=== PATIENT | male | born 1970 | race Caucasian/White ===

== ENCOUNTER 2025-08-21 15:09 | Inpatient (IN) | payer BC, SELFPAY ==
[2025-08-21] VITALS (14 sets, daily range): BP systolic 78–148; BP diastolic 45–83; PULSE 70–98; RESP 14–19; TEMP 36.6–36.9; O2SAT 96–100; BMI 37.1; BMI 38.2
[2025-08-21 16:05] LABS: Hematocrit 40.5 % (40-54); Hemoglobin 15.1 g/dL (13.0-16.5); Immature Granulocytes Count 0.060 X10^3/uL (0.0-0.0); Mean Corp Hgb Conc 37.3 g/dL (32-36); Mean Corpuscular Volume 91.6 fL (80-94); Mean Platelet Vol. 8.6 fl (6.2-12.0); NRBC Flagged by Analyzer 0 % (0-5); Platelet Count 226 K/mm3 (150-450); RBC Distribution Width CV 12.0 % (11.6-14.6); RBC Distribution Width SD 39.9 fl (35.1-43.9); Red Blood Count 4.42 M/mm3 (4.6-6.2); White Blood Count 9.5 K/mm3 (4.4-11.0)
[2025-08-21 16:31] LABS: Lipase 62 U/L (13-75)
[2025-08-21 16:42] LABS: AST(SGOT) 113 U/L (<=37); Alanine Aminotransfer ALT/SGPT 143 U/L (<=46); Albumin, Serum 4.7 g/dL (3.5-5.0); Alkaline Phosphatase 68 U/L (40-129); Anion Gap 16 (5-15); BUN 22 mg/dL (4-19); BUN/Creat Ratio 9.0 RATIO (10-20); Calcium,Total 9.6 mg/dL (7.6-11.0); Carbon Dioxide 22.2 mmol/L (21.0-32.0); Chloride 81 mmol/L (98-108); Globulin 3.2 g/dL (2.2-4.2); Glucose 121 mg/dL (70-99); Potassium 4.0 mmol/L (3.3-5.1)
--- NOTE | 2025-08-21 16:50 | CT_ITS ---
PROCEDURE: ABDOMEN/PELVIS WITHOUT CONT 08/21/2025 REASON FOR EXAM: COLITIS MAYA TECHNIQUE: Procedure Code: CTABDPEL Modality: CT Procedure: ABDOMEN/PELVIS WITHOUT CONT Noncontrast technique limits evaluation of the abdominal and pelvic viscera. Coronal and Sagittal reconstruction series were provided. One or more dose reduction techniques were used (e.g., Automated exposure control, adjustment of the mA and/or kV according to patient size, use of iterative reconstruction technique). RADIATION DOSE SUMMARY: CTDlvol: 20 mGy DLP: 1189 mGycm FINDINGS: The lung bases are clear. The noncontrast images of the liver, spleen, pancreas and kidneys are unremarkable. No free-fluid. No free air. No bowel obstruction. There is no colonic wall thickening. There is no small bowel distention. There is no abdominal aneurysm or retroperitoneal adenopathy. No evidence of colitis by CT CT/Abdomen/Pelvis without Cont IMPRESSION: No acute abnormality Reading [facility]
--- NOTE | 2025-08-21 16:50 | EKG12_ITS ---
Test Reason : abn labs Blood Pressure : */* mmHG Vent. Rate : 69 BPM Atrial Rate : 69 BPM P-R Int : 208 ms QRS Dur : 92 ms QT Int : 432 ms P-R-T Axes : -11 -42 12 degrees QTcB Int : 462 ms Normal sinus rhythm Left axis deviation Moderate voltage criteria for LVH, may be normal variant ( R in aVL , [place] product ) Abnormal ECG Confirmed by JING CERVANTES, DIMPLE ([id number]), photo editor KATE GARRETT ([id number]) on 08/22/2025 1:05:20 PM Referred By: Confirmed By: DIMPLE CH MD
--- NOTE | 2025-08-21 16:52 | EX.ED.DYSGE1 ---
HPI History of Present Illness Chief Complaint: General Illness Informant: patient and spouse/S.O. Narrative Narrative: 55-year-old male presenting to the emergency room with diarrhea and vomiting. Patient states that last week he traveled to [place] for a [place]. He started to return home on Friday arriving back in town late Friday night. States he developed a lot of diarrhea and vomiting along the way. He notes a generalized upper abdominal discomfort. He has not been able to eat or drink much. He notes decreased urination now urinating small amounts 4 times a day. He has not had any fever. He notes a headache as well as some mild rhinorrhea and a slight cough that is nonproductive. He states that no one else on this trip is sick. This morning he began to ask his some bizarre confused questions and she took him to urgent care and they advised him to come here. He notes a history of hypertension does take HTCZ as well as lisinopril. He notes his last hemoglobin A1c was 5.1. notes that at night he seems very restless and he has had some abdominal wall spasms. Patient notes decreased appetite. He has been trying to drink fluids but is been difficult. He denies any history of pancreatitis. He has had 2 colonoscopies which he states have been negative. [facility] Medical History Hypercholesterolemia Hypertension Home Medications ?Medication ?Instructions ?Recorded ?Last Taken ?Type atorvastatin 20 mg tablet (Lipitor) 20 mg PO DAILY cholesterol 08/21/25 08/21/25 History colestipol 1 gram tablet (Colestid) 1 g PO DAILY cholesterol 08/21/25 08/21/25 History fenofibrate 54 mg tablet 54 mg PO DAILY cholesterol 08/21/25 08/21/25 History hydrochlorothiazide 25 mg tablet 25 mg PO DAILY BP 08/21/25 08/21/25 History lisinopril 40 mg tablet 40 mg PO DAILY BP 08/21/25 08/21/25 History pantoprazole 40 mg tablet,delayed 40 mg PO DAILY reflux 08/21/25 08/21/25 History release Allergy/AdvReac Type Severity Reaction Status Date / Time grass pollen Allergy Mild Itching Verified 08/21/25 21:49 Surgical History Hx of cholecystectomy Social History Smoking Status: Never smoker ROS ROS ED Constitutional Constitutional ED: Reports sweats; Denies chills, fever(s) or weight loss Eyes Eyes: Denies change in vision or diplopia ENT ENT ED: Reports rhinorrhea; Denies ear pain or sore throat Cardiovascular Cardiovascular: Denies chest pain, orthopnea, palpitations or racing heartbeat Respiratory/Chest Respiratory/Chest: Reports cough; Denies dyspnea or orthopnea Gastrointestinal Gastrointestinal: Reports abdominal pain, diarrhea, nausea, vomiting and other Details: Decreased appetite Genitourinary Genitourinary ED: Reports other Details: Decreased urination ; Denies dysuria, hematuria or urinary frequency Musculoskeletal Musculoskeletal: Denies arthralgias, back pain or myalgias Integumentary Denies abscess or rash Neurologic Neurologic: Reports headache(s) and other Details: Confusion ; Denies paresthesias or weakness Psychiatric Psychiatric: Denies anxiety, depression, suicidal ideation or suicidal thoughts Endocrine Endocrinology: Denies polydipsia, polyphagia or polyuria Allergic/Immunologic Allergic/Immunologic ED: Denies mouth swelling, tongue swelling or urticaria EXAM Physical Exam Const Vital Signs: 08/21/25 15:11 08/21/25 15:14 08/21/25 17:13 Temperature 98.4 F 98.4 F 98.4 F Temperature Source Temporal Oral Oral Pulse Rate 98 98 70 Respiratory Rate 18 18 19 H Respiratory Effort Respiratory Pattern Blood Pressure 135/83 H 135/83 H 148/71 H Blood Pressure Mean 100 100 96 Pulse Ox 97 97 96 Oxygen Delivery Method Room Air Room Air Room Air 08/21/25 17:13 08/21/25 18:00 08/21/25 19:00 Temperature 98.4 F Temperature Source Oral Pulse Rate 72 83 Respiratory Rate 18 18 Respiratory Effort Normal Respiratory Pattern Normal Blood Pressure 142/75 H 143/76 H Blood Pressure Mean 97 98 Pulse Ox 97 97 Oxygen Delivery Method Room Air Room Air Positive well nourished and well developed General Appearance ED: well developed; Negative for NAD HEENT Reports normocephalic, head/scalp atraumatic and dry mucous membranes Mouth ED: Yes dry mucous membranes Mouth: dry mucous membranes Eyes PERRL and EOMs intact bilaterally Neck no lymphadenopathy, supple and no JVD Resp normal respiratory effort and clear to auscultation bilaterally Cardio regular rate, regular rhythm and no murmurs GI Inspection: Negative for abdominal distention Auscultation: hypoactive bowel sounds Palpation: soft and tender other (Mild diffuse tenderness); Negative for guarding or rebound tenderness present Back/Spine no CVA tenderness and normal ROM Extremity normal to inspection General Extremety ED: Negative for edema General Extremity: Negative for edema Neuro oriented x3 and CN's II-XII intact bilaterally Sensorium / Orientation: alert Motor Exam: strength 5/5 throughout Psych mental status grossly normal Mood & Affect: Negative for depressed or tearful Skin no rashes or lesions noted and no wounds MDM MDM MDM Narrative Medical decision making narrative: Differential diagnosis includes dehydration MAYA electrolyte abnormalities viral gastroenteritis bacterial gastroenteritis uremia pancreatitis biliary colic White count is 9.5 hemoglobin 15.1 platelet count of 226. Sodium is 119 creatinine 2.49 with a BUN of 22 elevation of his transaminases AST 113 ALT 143 magnesium 2.3 total bili 1.1 alk phos [address] of the abdomen pelvis was obtained read by radiology reviewed by myself. Please see radiologist read for full details. Patient received initially a 500 cc bolus of normal saline. I rechecked his sodium level of 121 and administered another 500 cc saline bolus. I think the patient would benefit from being admitted to the hospital for further correction of his sodium and as well as his MAYA. History & Record Review Discussion w/independent historian: Patient and Family Lab Data Attestation: I reviewed the patient's lab results. Labs: Laboratory Results - last 24 hr 08/21/25 08/21/25 15:57 17:55 WBC 9.5 RBC 4.42 L Hgb 15.1 Hct 40.5 MCV 91.6 MCH 34.2 H MCHC 37.3 H RDW Std Deviation 39.9 RDW Coeff of Jaclyn 12.0 Plt Count 226 MPV 8.6 Immature Gran % (Auto) 0.600 Neut % (Auto) 73.7 H Lymph % (Auto) 14.3 L [place] % (Auto) 10.6 H Eos % (Auto) 0.4 Baso % (Auto) 0.4 Absolute Neuts (auto) 7.0 Absolute Lymphs (auto) 1.35 Nucleated RBC % 0 Sodium 119 L* 121 L Potassium 4.0 3.9 Chloride 81 L 83 L Carbon Dioxide 22.2 24.1 Anion Gap 16 H 14 BUN 22 H 22 H Creatinine 2.49 H 2.37 H Estim Creat Clear Calc 44.70 L Est GFR (MDRD) Non-Af 30 L 31 L BUN/Creatinine Ratio 9.0 L 9.2 L Glucose 121 H 109 H Calcium 9.6 9.2 Magnesium 2.3 H Total Bilirubin 1.11 AST 113 H ALT 143 H Alkaline Phosphatase 68 Total Protein 7.9 Albumin 4.7 Globulin 3.2 Albumin/Globulin Ratio 1.5 Lipase 62 Radiography Diagnostic Testing: Clinical Impression(s) from Imaging Studies Abdomen/Pelvis CT 08/21/25 16:50 IMPRESSION: No acute abnormality Reading Location: [facility] EKG Initial EKG: Attestation: I personally reviewed and interpreted this EKG as follows: Comments: Normal sinus rhythm ventricular to 69 bpm Management Discussion w/another healthcare provider: Hospitalist Discharge Plan Dx/Rx/DC Orders Clinical Impression: Acute hyponatremia, MAYA (acute kidney injury), Acute dehydration, Gastroenteritis, AMS (altered mental status) Disposition Disposition: [facility] Discharge Date/Time: 08/21/25 20:56
[2025-08-21] MEDS: 0.9% Normal Saline (500mL Bag) 500 ML 999 ML IV ×2 (16:55→18:27)
--- OUTSIDE RECORDS SUMMARY | 2025-08-21 17:19 | XMS RPT_ITS | CCD ---
Author Organization [facility] Care Team Providers Care Chart Collector Name Role Phone PROVIDER, UNKNOWN Unavailable Unavailable Babatunde Kerr MD Primary Care Provider Babatunde Kerr MD Primary Care Provider [phone] Babatunde Kerr MD Primary Care Provider Valentina Chatman APRN.CNP Unavailable Mary Ann Carlos PA-C Unavailable [phone] BABATUNDE KERR Primary Care Unavailable DORIS GUADALUPE Attending Unavailable BABATUNDE KERR Attending Unavailable BABATUNDE KERR Primary Care Unavailable BABATUNDE KERR Primary Care Unavailable BABATUNDE KERR Referring Unavailable MARY ANN CARLOS Attending Unavailable BABATUNDE KERR Primary Care Unavailable BABATUNDE KERR Primary Care Unavailable BABATUNDE KERR Referring Unavailable Allergies Allergy Classification Reported Allergen(s) Allergy Type Date of Onset Reaction(s) Facility (20 sources) Seasonal allergy; Translations: [SEASONAL ALLERGIES] Propensity to adverse reactions (disorder) 8 Other: See Comments [facility] Other [place] [facility] Medications Current Medications Medication Drug Class(es) Dates Sig (Normalized) Sig (Original) atorvastatin 20 mg oral tablet (20 sources) HMG-CoA Reductase Inhibitor Start: 12-25-2023 End: 12-20-2024 take 1 tablet by mouth once daily at bedtime for hyperlipidemia atorvastatin (LIPITOR) 20 mg tablet Take 1 tablet by mouth daily at bedtime. For cholesterol. 90 tablet 1 12/20/2024 Active Start: 06-26-2023 End: 08-24-2023 take 1 tablet by mouth once daily at bedtime for hyperlipidemia atorvastatin (LIPITOR) 20 mg tablet Indications: Hyponatremia , Hyperkalemia Take 1 tablet by mouth daily at bedtime. For cholesterol. 90 tablet 1 08/25/2023 Active Start: 02-17-2023 take 1 tablet by kiran th once daily at bedtime for hyperlipidemia atorvastatin (LIPITOR) 20 mg tablet Indications: Hyponatremia , Hyperkalemia Take 1 tablet by mouth daily at bedtime. For cholesterol. 90 tablet 1 02/17/2023 Active Start: 09-02-2022 take 1 tablet by kiran th once daily at bedtime for hyperlipidemia atorvastatin (LIPITOR) 20 mg tablet Indications: Hyponatremia , Hyperkalemia Take 1 tablet by mouth daily at bedtime. For cholesterol. 90 tablet 1 09/02/2022 Active Start: 01-23-2022 End: 09-02-2022 take 1 tablet by mouth once daily at bedtime for hyperlipidemia atorvastatin (LIPITOR) 10 mg tablet Indications: Hyponatremia , Hyperkalemia Take 1 tablet by mouth daily at bedtime. For cholesterol. 90 tablet 1 04/26/2022 09/02/2022 Discontinued Comment on above: Take 1 tablet by kiran th daily at bedtime. For cholesterol. colestipol hydrochloride 1000 mg oral tablet (20 sources) Bile Acid Sequestrant Start: End: take 1 tablet by mouth twice daily colestipol (COLESTID) 1 gram tablet Indications: MUNIZ (nonalcoholic steatohepatitis) Take 1 tablet by mouth two times a day. 180 tablet 1 06/29/2024 Active Start: 07-17-2021 End: 05-16-2023 take 1 tablet by mouth twice daily colestipol (COLESTID) 1 gram tablet Take 1 tablet by mouth twice daily. 180 tablet 1 05/16/2023 Active Comment on above: Take 1 tablet by kiran th twice daily. Take 1 tablet by kiran th two times a day. COMPOUNDED PRESCRIPTION (20 sources) Start: 09-09-2018 COMPOUNDED PRESCRIPTION Indications: KATHY (obstructive sleep apnea) CPAP DEVICE AND SUPPLIES: CPAP 7 cmH2O with humidification. 1 Each 09/09/2018 Active Start: 09-09-2018 COMPOUNDED PRE SCRIPTION Indications: KATHY (obstructive sleep apnea) CPAP DEVICE AND SUPPLIES: CPAP 7 cmH2O with humidification. 1 Each 0 09/09/2018 Active Comment on above: CPAP DEVICE AND SUPP LIES: CPAP 7 cmH2O with humidification. fenofibrate 54 mg oral tablet (2 sources) Peroxisome Proliferator Receptor alpha Agonist Start: 01-08-20 take 1 tablet by mouth once daily Fenofibrate (LOFIBRA) 54 mg tablet Take 1 tablet by mouth once daily. 90 tablet 1 01/07/2025 Active lisinopril 40 mg oral tablet (20 sources) Angiotensin Converting Enzyme Inhibitor Start: 12-25-19 End: 12-21-19 take 1 tablet by mouth once daily lisinopril (ZESTRIL) 40 mg tablet Take 1 tablet by mouth once daily. 90 tablet 1 12/20/2024 Active Start: 07-17-2021 End: 04-07-2023 take 1 tablet by mouth once daily lisinopril (ZESTRIL) 40 mg tablet Take 1 tablet by mouth once daily. 90 tablet 3 04/07/2023 Active Comment on above: Take 1 tablet by kiran th once daily. pantoprazole 40 mg delayed release oral tablet (20 sources) Proton Pump Inhibitor Start: End: take 1 tablet by mouth once daily before breakfast pantoprazole DR (PROTONIX) 40 mg tablet Take 1 tablet by mouth daily before breakfast. Take on empty stomach, 1/2 hr before meal. 90 tablet 1 12/20/2024 Active Start: 07-17-2021 End: 08-24-2023 take 1 tablet by mouth once daily pantoprazole DR (PROTONIX) 40 mg tablet Take 1 tablet by mouth once daily. 90 tablet 1 05/16/2023 08/24/2023 Discontinued Comment on above: Take 1 tablet by kiran th once daily. Take 1 tablet by kiran th daily before breakfast. Take on empty stomach, 1/2 hr before meal. sildenafil 100 mg oral tablet (20 sources) Phosphodiesterase 5 Inhibitor Start: 01-02-20 End: 09-22-20 take 1 tablet by mouth once daily sildenafil (VIAGRA) 100 mg tablet Indications: Erectile dysfunction, unspecified erectile dysfunction type Take one tab by mouth daily if needed. 30 tablet 1 09/23/2024 Active Start: 03-22-2019 End: 07-08-2023 take 1 tablet by mouth once daily sildenafil (VIAGRA) 100 mg tablet Take one tab by mouth daily if needed. 30 tablet 1 07/09/2023 Active Comment on above: Take one tab by mout h daily if needed. tropicamide 5 mg/ml ophthalmic solution (2 sources) Anticholinergic Start: 06-09-2024 End: 06-09-2024 tropicamide 0.5 % 1 Drop (MYDRIACYL) Start: 06-09-2024 End: 06-09-2024 1 Drop, BOTH EYES, DIRECT ED, Starting on Fri06/09/24 at 0900, Until Fri06/09/24 at 2058, Administer for dilation vitamin b12 0.5 mg oral tablet (7 sources) Vitamin B12 Start: 06-30-2024 take 1 tablet by mouth once daily cyanocobalamin (B-12 DOTS) 500 mcg tablet Take 1 tablet by mouth once daily. 06/30/2024 Active Problems Active Problems Problem Classification Problem Date Documented Da te Episodic/Chronic Blindness and vision defects (3 sources) Bilateral myopia of eyes; Translations: [Myopia, bilateral] 06-09-2024 Episodic Disorders of lipid metabolism (20 sources) Mixed hyperlipidemia; Translations: [Mixed hyperlipidemia] Onset: 9 02-07-2018 Chronic Esophageal disorders (20 sources) Ulcer of esophagus; Translations: [Ulcer of esophagus without bleeding] Onset: 7 Chronic Essential hypertension (20 sources) Essential (primary) hypertension; Translations: [Essential hypertension] Onset: 9 02-07-2018 Chronic Fluid and electrolyte disorders (10 sources) Hyponatremia; Translations: [Hypo-osmolality and hyponatremia] Episodic Hepatitis (20 sources) Nonalcoholic steatohepatitis; Translations: [Nonalcoholic steatohepatitis (MUNIZ)] Onset: 3 06-25-2023 Chronic Malaise and fatigue (1 source) Other fatigue; Translations: [Other fatigue] Onset: 8 Episodic Miscellaneous mental health disorders (20 sources) Psychophysiologic insomnia; Translations: [Psychophysiologic insomnia] Onset: 1 07-17-2021 Chronic Mood disorders (20 sources) Single episode of major depression in full remission; Translations: [Major depressive disorder, single episode, in full remission] Onset: 5 08-29-2018 Chronic Other eye disorders (1 source) Bilateral vitreous floaters; Translations: [Other vitreous opacities, bilateral] 06-09-2024 Chronic Other gastrointestinal disorders (20 sources) Diarrhea; Translations: [Intestinal malabsorption, unspecified] Onset: 9 08-18-2019 Chronic Other gastrointestinal disorders (1 source) Intestinal malabsorption, unspecified; Translations: [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)] Onset: 9 Chronic Other liver diseases (20 sources) Steatosis of liver; Translations: [Fatty (change of) liver, not elsewhere classified] Onset: 9 08-18-2019 Chronic Other liver diseases (1 source) Fatty (change of) liver, not elsewhere classified; Translations: [Fatty liver] Onset: 5 Chronic Other lower respiratory disease (1 source) Snoring; Translations: [Snoring] Onset: 8 Episodic Other lower respiratory disease (1 source) Apnea, not elsewhere classified; Translations: [Apnea, not elsewhere classified] Onset: 8 Episodic Other male genital disorders (20 sources) Male erectile dysfunction, unspecified; Translations: [Impotence of organic origin] Onset: 9 08-18-2019 Chronic Other nutritional; endocrine; and metabolic disorders (20 sources) Obese class II; Translations: [Obesity, unspecified] Onset: 0 09-05-2020 Chronic Other nutritional; endocrine; and metabolic disorders (4 sources) Severe obesity; Translations: [Class 3 severe obesity due to excess calories with serious comorbidity and body mass index (BMI) of 40.0 to 44.9 in adult ([facility])] Onset: 0 12-20-2024 Chronic Other nutritional; endocrine; and metabolic disorders (1 source) Body mass index (BMI) 40.0-44.9, adult; Translations: [Class 3 severe obesity with body mass index (BMI) of 40.0 to 44.9 in adult ([facility])] Onset: 5 Chronic Other skin disorders (1 source) Actinic keratosis; Translations: [AK (actinic keratosis)] Onset: 5 Episodic Residual codes; unclassified (20 sources) Obstructive sleep apnea syndrome; Translations: [Obstructive sleep apnea (adult) (pediatric)] Onset: 8 08-18-2019 Chronic Residual codes; unclassified (1 source) Obstructive sleep apnea (adult) (pediatric); Translations: [KATHY (obstructive sleep apnea)] Onset: 3 Chronic Retinal detachments; defects; vascular occlusion; and retinopathy (1 source) Round hole of retina of right eye; Translations: [Round hole, right eye] 06-09-2024 Episodic Screening and history of mental health and substance abuse codes (1 source) Encounter for screening examination for other mental health and behavioral disorders; Translations: [Encounter for screening examination for other mental health and behavioral disorders] Onset: 5 Episodic Substance-related disorders (1 source) Nicotine dependence; Translations: [Nicotine dependence, chewing tobacco, uncomplicated] 12-20-2024 Chronic Unclassified (1 source) Class 3 severe obesity with body mass index (BMI) of 40.0 to 44.9 in adult (HCC); Translations: [Class 3 severe obesity with body mass index (BMI) of 40.0 to 44.9 in adult (HCC)] Onset: 5 Past or Other Problems Problem Classification Problem Date Documented Da te Episodic/Chronic Diabetes mellitus without complication (20 sources) High hemoglobin A1c level; Translations: [Other abnormal glucose] Onset: 07-17-2021 07-17-2021 Episodic Hemorrhoids (20 sources) Internal hemorrhoids; Translations: [Other hemorrhoids] Onset: 06-10-2007 02-07-2018 Episodic Nutritional deficiencies (20 sources) Serum vitamin B12 low; Translations: [Deficiency of other specified B group vitamins] Onset: 07-17-2021 07-17-2021 Episodic Other aftercare (20 sources) Patient encounter status; Translations: [Other jail (current) drug therapy] Onset: 03-20-2019 07-12-2021 Episodic Other aftercare (1 source) Other keno terminal operator (current) drug therapy; Translations: [Medication management] Onset: 07-12-2021 Episodic Other gastrointestinal disorders (1 source) Diarrhea, unspecified; Translations: [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)] Onset: 08-18-2019 Episodic Other infections; including parasitic (20 sources) Personal history of other infectious and parasitic diseases; Translations: [History of COVID-19] Onset: 07-17-2021 07-17-2021 Episodic Other nutritional; endocrine; and metabolic disorders (20 sources) Weight gain; Translations: [Abnormal weight gain] Onset: 07-17-2021 07-17-2021 Episodic Other nutritional; endocrine; and metabolic disorders (8 sources) Weight increased; Translations: [Abnormal weight gain] Onset: 07-17-2021 07-17-2021 Episodic Other screening for suspected conditions (not mental disorders or infectious disease) (18 sources) Other specified abnormal findings of blood chemistry; Translations: [Other abnormal blood chemistry] Onset: 03-20-2019 08-18-2019 Episodic Results Test Name Value Interpretation Reference Range Facility Basic metabolic 2000 panelon 06-24-2025 Anion gap [Moles/Vol] 16 mmol/L High 8-15 [facility] Comment on above: Order Comment: Speci men Type: BLOOD SPECIMEN Ordering Facility: [facility] Address: [address] [place] [address] Performed By: #### 2 4325-3, , 52836-0, LIPNF #### [facility] CLIA [id number] [address] [place] [address] [place] Calcium [Mass/Vol] 9.7 mg/dL Normal 8.5-10.2 [facility] Comment on above: Order Comment: Speci men Type: BLOOD SPECIMEN Ordering Facility: [facility] Address: [address] [place] [address] Performed By: #### 2 4325-3, , 59265-1, LIPNF #### [facility] CLIA [id number] [address] [place] [address] [place] Chloride [Moles/Vol] 98 mmol/L Normal 98-107 [facility] Comment on above: Order Comment: Speci men Type: BLOOD SPECIMEN Ordering Facility: [facility] Address: [address] [place] [address] Performed By: #### 2 4325-3, , 95036-1, LIPNF #### [facility] CLIA [id number] [address] [place] [id number] [place] CO2 [Moles/Vol] 21 mmol/L Low 22-30 [facility] Comment on above: Order Comment: Speci men Type: BLOOD SPECIMEN Ordering Facility: [facility] Address: [address] [place] [address] Performed By: #### 2 4325-3, , 62929-9, LIPNF #### [facility] CLIA [id number] [address] [place], [place] [id number] [place] Creatinine [Mass/Vol] 1.00 mg/dL Normal 0.73-1.22 [facility] Comment on above: Order Comment: Speci men Type: BLOOD SPECIMEN Ordering Facility: [facility] Address: [address] [place] [address] Performed By: #### 2 4325-3, , 32788-7, LIPNF #### [facility] CLIA [id number] [address] [place] [address] [place] eGFRcr SerPlBld CKD-EPI 2020 88 mL/min/1.73m??? Normal >=60 [facility] Comment on above: Order Comment: Speci men Type: BLOOD SPECIMEN Ordering Facility: [facility] Address: [address] [place] [address] Result Comment: Shelley mated Glomerular Filtration Rate (eGFR) is calculated using the 2020 CKD-EPI creatinine equation. This equation utilizes serum creatinine, sex, and age as parameters. The creatinine assay has traceable calibration to isotope dilution-mass spectrometry. Refer to KDIGO guidelines for clinical interpretation. In patients with unstable renal function, e.g. those with acute kidney injury, the eGFR may not accurately reflect actual GFR. Performed By: #### 2 4325-3, 91586-4, 04730-3, LIPNF #### [facility] CLIA [id number] [address] [place], [place] [id number] [place] Glucose [Mass/Vol] 128 mg/dL High 74-99 [facility] Comment on above: Order Comment: Speci men Type: BLOOD SPECIMEN Ordering Facility: [facility] Address: [address] [place] [address] Result Comment: The [place] Diabetes [employer] (ADA) provides guidance for cutoff values for fasting glucose and random glucose. The ADA defines fasting as no caloric intake for at least 8 hours. Fasting plasma glucose results between 100 to 125 mg/dL indicate increased risk for diabetes (prediabetes). Fasting plasma glucose results greater than or equal to 126 mg/dL meet the criteria for diagnosis of diabetes. In the absence of unequivocal hyperglycemia, results should be confirmed by repeat testing. In a patient with classic symptoms of hyperglycemia or hyperglycemic crisis, random plasma glucose results greater than or equal to 200 mg/dL meet the criteria for diagnosis of diabetes. Reference: Standards of Medical Care in Diabetes 2016, [place] [employer] Association. Diabetes Care. 2016.39(Suppl 1). Performed By: #### 2 4325-3, , 56378-2, LIPNF #### [facility] CLIA [id number] [address] [place] [address] [place] Potassium [Moles/Vol] 4.3 mmol/L Normal 3.7-5.1 [facility] Comment on above: Order Comment: Speci men Type: BLOOD SPECIMEN Ordering Facility: [facility] Address: [address] [place] [address] Performed By: #### 2 4325-3, , 96687-3, LIPNF #### [facility] CLIA [id number] [address] [place] [address] [place] Sodium [Moles/Vol] 135 mmol/L Low 136-144 [facility] Comment on above: Order Comment: Speci men Type: BLOOD SPECIMEN Ordering Facility: [facility] Address: [address] [place] [address] Performed By: #### 2 4325-3, , 43809-1, LIPNF #### [facility] CLIA [id number] [address] [place] [address] [place] Urea nitrogen [Mass/Vol] 10 mg/dL Normal 9-24 [facility] Comment on above: Order Comment: Speci men Type: BLOOD SPECIMEN Ordering Facility: [facility] Address: [address] [place] [address] Performed By: #### 2 4325-3, 91014-4, 28248-2, LIPNF #### [facility] CLIA [id number] [address] [place] [address] [place] CBC W Auto Differential pane l (Bld)on 06-24-2025 Basophils (Bld) [#/Vol] 0.04 10*3/uL Normal <0.11 [facility] Comment on above: Order Comment: Speci men Type: BLOOD SPECIMEN Ordering Facility: [facility] Address: [address] [place] [address] Performed By: #### 5 7021-8 #### [facility] CLIA [id number] [address] [place] [address] [place] Basophils/100 WBC (Bld) 0.8 % Normal [facility] Comment on above: Order Comment: Speci men Type: BLOOD SPECIMEN Ordering Facility: [facility] Address: [address] [place] [address] Performed By: #### 5 7021-8 #### [facility] CLIA [id number] [address] [place] [address] [place] Differential cell count method Nom (Bld) Auto Normal [facility] Comment on above: Order Comment: Speci men Type: BLOOD SPECIMEN Ordering Facility: [facility] Address: [address] [place] [address] Performed By: #### 5 7021-8 #### [facility] CLIA [id number] [address] [place] [address] [place] Eosinophils (Bld) [#/Vol] 0.07 10*3/uL Normal <0.46 [facility] Comment on above: Order Comment: Speci men Type: BLOOD SPECIMEN Ordering Facility: [facility] Address: [address] [place] [address] Performed By: #### 5 7021-8 #### [facility] CLIA [id number] [address] [place] [address] [place] Eosinophils/100 WBC (Bld) 1.4 % Normal [facility] Comment on above: Order Comment: Speci men Type: BLOOD SPECIMEN Ordering Facility: [facility] Address: [address] [place] [address] Performed By: #### 5 7021-8 #### [facility] CLIA [id number] [address] [place] [address] [place] Erythrocyte distribution width (RBC) [Ratio] 12.4 % Normal 11.5-15.0 [facility] Comment on above: Order Comment: Speci men Type: BLOOD SPECIMEN Ordering Facility: [facility] Address: [address] [place] [address] Performed By: #### 5 7021-8 #### [facility] CLIA [id number] [address] [place] [address] [place] Hematocrit (Bld) [Volume fraction] 39.9 % Normal 39.0-51.0 [facility] Comment on above: Order Comment: Speci men Type: BLOOD SPECIMEN Ordering Facility: [facility] Address: [address] [place] [address] Performed By: #### 5 7021-8 #### [facility] CLIA [id number] [address] [place] [address] [place] Hemoglobin (Bld) [Mass/Vol] 14.0 g/dL Normal 13.0-17.0 [facility] Comment on above: Order Comment: Speci men Type: BLOOD SPECIMEN Ordering Facility: [facility] Address: [address] [place] [address] Performed By: #### 5 7021-8 #### [facility] CLIA [id number] [address] [place] [address] [place] Immature granulocytes (Bld) [#/Vol] 10*3/uL Normal <0.10 [facility] Comment on above: Order Comment: Speci men Type: BLOOD SPECIMEN Ordering Facility: [facility] Address: [address] [place] [address] Performed By: #### 5 7021-8 #### [facility] CLIA [id number] [address] [place] [address] [place] Immature granulocytes/100 WBC (Bld) 0.4 % Normal [facility] Comment on above: Order Comment: Speci men Type: BLOOD SPECIMEN Ordering Facility: [facility] Address: [address] [place] [address] Performed By: #### 5 7021-8 #### [facility] CLIA [id number] [address] [place] [address] [place] Lymphocytes (Bld) [#/Vol] 1.21 10*3/uL Normal 1.00-4.00 [facility] Comment on above: Order Comment: Speci men Type: BLOOD SPECIMEN Ordering Facility: [facility] Address: [address] [place] [address] Performed By: #### 5 7021-8 #### [facility] CLIA [id number] [address] [place] [address] [place] Lymphocytes/100 WBC (Bld) 23.5 % Normal [facility] Comment on above: Order Comment: Speci men Type: BLOOD SPECIMEN Ordering Facility: [facility] Address: [address] [place] [address] Performed By: #### 5 7021-8 #### [facility] CLIA [id number] [address] [place] [address] [place] MCH (RBC) [Entitic mass] 34.5 pg High 26.0-34.0 [facility] Comment on above: Order Comment: Speci men Type: BLOOD SPECIMEN Ordering Facility: [facility] Address: [address] [place] [address] Performed By: #### 5 7021-8 #### [facility] CLIA [id number] [address] [place] [address] [place] MCHC (RBC) [Mass/Vol] 35.1 g/dL Normal 30.5-36.0 [facility] Comment on above: Order Comment: Speci men Type: BLOOD SPECIMEN Ordering Facility: [facility] Address: [address] [place] [address] Performed By: #### 5 7021-8 #### [facility] CLIA [id number] [address] [place] [address] [place] MCV (RBC) [Entitic vol] 98.3 fL Normal 80.0-100.0 [facility] Comment on above: Order Comment: Speci men Type: BLOOD SPECIMEN Ordering Facility: [facility] Address: [address] [place] [address] Performed By: #### 5 7021-8 #### [facility] CLIA [id number] [address] [place] [address] [place] Monocytes (Bld) [#/Vol] 0.47 10*3/uL Normal <0.87 [facility] Comment on above: Order Comment: Speci men Type: BLOOD SPECIMEN Ordering Facility: [facility] Address: [address] [place] [address] Performed By: #### 5 7021-8 #### [facility] CLIA [id number] [address] [place] [address] [place] Monocytes/100 WBC (Bld) 9.1 % Normal [facility] Comment on above: Order Comment: Speci men Type: BLOOD SPECIMEN Ordering Facility: [facility] Address: [address] [place] [address] Performed By: #### 5 7021-8 #### [facility] CLIA [id number] [address] [place] [address] [place] Neutrophils (Bld) [#/Vol] 3.34 10*3/uL Normal 1.45-7.50 [facility] Comment on above: Order Comment: Speci men Type: BLOOD SPECIMEN Ordering Facility: [facility] Address: [address] [place] [address] Performed By: #### 5 7021-8 #### [facility] CLIA [id number] [address] [place] [address] [place] Neutrophils/100 WBC (Bld) 64.8 % Normal [facility] Comment on above: Order Comment: Speci men Type: BLOOD SPECIMEN Ordering Facility: [facility] Address: [address] [place] [address] Performed By: #### 5 7021-8 #### [facility] CLIA [id number] [address] [place] [address] [place] Nucleated RBC (Bld) [#/Vol] 10*3/uL Normal <0.01 [facility] Comment on above: Order Comment: Speci men Type: BLOOD SPECIMEN Ordering Facility: [facility] Address: [address] [place] [address] Performed By: #### 5 7021-8 #### [facility] CLIA [id number] [address] [place] [address] [place] Nucleated RBC/100 WBC (Bld) [Ratio] 0.0 /100 WBC Normal [facility] Comment on above: Order Comment: Speci men Type: BLOOD SPECIMEN Ordering Facility: [facility] Address: [address] [place] [address] Performed By: #### 5 7021-8 #### [facility] CLIA [id number] [address] [place] [address] [place] Platelet mean volume (Bld) [Entitic vol] 9.4 fL Normal 9.0-12.7 [facility] Comment on above: Order Comment: Speci men Type: BLOOD SPECIMEN Ordering Facility: [facility] Address: [address] [place] [address] Performed By: #### 5 7021-8 #### [facility] CLIA [id number] [address] [place] [address] [place] Platelets (Bld) [#/Vol] 179 10*3/uL Normal 150-400 [facility] Comment on above: Order Comment: Speci men Type: BLOOD SPECIMEN Ordering Facility: [facility] Address: [address] [place] [address] Performed By: #### 5 7021-8 #### [facility] CLIA [id number] [address] [place] [address] [place] RBC (Bld) [#/Vol] 4.06 10*6/uL Low 4.20-6.00 [facility] Comment on above: Order Comment: Speci men Type: BLOOD SPECIMEN Ordering Facility: [facility] Address: [address] [place] [address] Performed By: #### 5 7021-8 #### [facility] CLIA [id number] [address] [place] [address] [place] WBC (Bld) [#/Vol] 5.15 10*3/uL Normal 3.70-11.00 [facility] Comment on above: Order Comment: Speci men Type: BLOOD SPECIMEN Ordering Facility: [facility] Address: [address] [place] [address] Performed By: #### 5 7021-8 #### [facility] CLIA [id number] [address] [place] [address] [place] CNOVon 06-24-2025 CNOV Office Visit (FAMPWS ) MANA ASH ([id number]) 1970 M Date Time Provider Department 06/24/25 7:00 AM BABATUNDE KERR During your visit today, we recorded the following information about you: Pulse Respiration Blood pressure Weight 82/minute 16/minute 150/74 118.1 kg Height 1.721 m Babatunde Kerr MD 06/24/2025 9:35 AM Signed Chief Complaint Patient presents with: Well Adult HPI Mana Ash is a 55 year old male who presents here today for a Physical and chronic health issues. Patient with Hx of Hyperlipidemia, HTN, KATHY, GERD, elevated A1c, Depression, low B12, ED, Obesity, MUNIZ as well as those reviewed and addressed below in ROS. Zafar reports intermittent hematochezia associated with hemorrhoids. He notes that the bleeding typically occurs with firm stools, presenting as blood on the toilet paper and occasionally on the stool itself. The bleeding is self-limiting, lasting for 3-4 days before resolving, and recurs approximately once a month. He denies hematuria. He also reports the presence of several non-pruritic, non-painful lesions on his scalp, which his has urged him to have evaluated. He has a history of significant sun exposure over the summer, despite wearing a hat, and notes that some of the lesions are scabby. He has previously undergone cryotherapy for a similar lesion on his scalp. Zafar denies recent fevers, frequent headaches, sudden changes in hearing or vision, nasal or throat issues, cervical lymphadenopathy, wheezing, dyspnea, hemoptysis, chest pain, palpitations, lower extremity edema, nausea, emesis, diarrhea, heartburn, polyuria, polydipsia, syncope, seizures, tremors, easy bruising or bleeding, or changes in heat or cold tolerance. He does report increased fatigue and sensitivity to cold, which he attributes to aging. He continues to use a CPAP machine and has not experienced a recurrence of depression. He is currently taking Colestid, which he reports is effective in managing loose stools. However, he experiences gastrointestinal discomfort when taking more than one dose per day. He also uses Viagra as needed, which he reports is effective. He continues to chew tobacco and has no intention of quitting. He plans to receive a flu vaccination this year. Past medical history, appointments, medications, allergies reviewed. 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 Post gall bladder removal Elevated hemoglobin A1c 07/17/2021 Elevated LFTs 08/18/2019 Erectile dysfunction 03/20/2019 Essential hypertension 08/29/2009 GERD without esophagitis 05/08/2007 Hemorrhage of gastrointestinal tract, unspecified History of COVID-19 07/17/202109/2020 Hyperlipidemia, mixed 08/29/2009 Internal hemorrhoids without mention of complication 06/10/2007 Low serum vitamin B12 07/17/2021 Major depressive disorder with single episode, in full remission 08/12/2005 MUNIZ (nonalcoholic steatohepatitis) 06/25/2023 Obesity, Class II, BMI 35-39.9 09/05/2020 KATHY (obstructive sleep apnea) 09/09/2018 Psychophysiological insomnia 07/17/2021 Well adult exam 09/05/2020 Last done: 09/05/2020 Previous Surgical History PAST SURGICAL HISTORY Procedure Laterality Date COLONOSCOPY FLX DX W/COLLJ SPEC WHEN PFRMD 09/27/2019 Colonoscopy ESOPHAGOGASTRODUODENOSCOPY TRANSORAL DIAGNOSTIC 06/10/2007 EGD ESOPHAGOGASTRODUODENOSCOPY TRANSORAL DIAGNOSTIC 09/27/2019 EGD ESOPHAGOGASTRODUODENOSCOPY TRANSORAL DIAGNOSTIC 12/06/2019 EGD LAPAROSCOPY SURG CHOLECYSTECTOMY 02/24/2018 Cholecystectomy, lap Family History FAMILY HISTORY Problem Relation Age of Onset None Mother Coronary Artery Disease Father Diabetes Father Hypertension Father Lipids Father Glaucoma Father other (syndrom) Son Patient Allergies ALLERGIES Allergen Reactions Seasonal Allergies Other: See Comments Itchy, watery eyes, SOB, congestion Current Medications Current Outpatient Medications on File Prior to Visit Medication Sig Fenofibrate (LOFIBRA) 54 mg tablet Take 1 tablet by mouth once daily. Fenofibrate (LOFIBRA) 54 mg tablet Take 1 tablet by mouth once daily. lisinopril (ZESTRIL) 40 mg tablet Take 1 tablet by mouth once daily. pantoprazole DR (PROTONIX) 40 mg tablet Take 1 tablet by mouth daily before breakfast. Take on empty stomach, 1/2 hr before meal. atorvastatin (LIPITOR) 20 mg tablet Take 1 tablet by mouth daily at bedtime. For cholesterol. sildenafil (VIAGRA) 100 mg tablet Take one tab by mouth daily if needed. cyanocobalamin (B-12 DOTS) 500 mcg tablet Take 1 tablet by mouth once daily. colestipol (COLESTID) 1 gram tablet Take 1 tablet by mouth two times a day. COMPOUNDED PRESCRIPTION CPAP DEVICE AND SUPPLIES: CPAP 7 cmH2O with humidification. No current facility-administered medications on file p (more content not included)... Normal [facility] HbA1c (Bld)on 06-24-2025 Average glucose Estimated from glycated hemoglobin (Bld) [Mass/Vol] 100 mg/dL Normal [facility] Comment on above: Order Comment: Sarah muñiz Type: BLOOD SPECIMEN Ordering Facility: [facility] Address: [address] [place] [address] Result Comment: eAG: (Estimated average glucose) is a calculated value from HgbA1c and is sales representatives of the average blood glucose level in the last 2-3 month period. Performed By: #### 5 5454-3 #### [facility] CLIA [id number] [address] [place] [address] [place] HbA1c (Bld) [Mass fraction] 5.1 % Normal 4.3-5.6 [facility] Comment on above: Order Comment: Sarah muñiz Type: BLOOD SPECIMEN Ordering Facility: [facility] Address: [address] [place] [address] Result Comment: Amer ican Diabetes Association guidelines indicate that patients with HgbA1c in the range 5.7-6.4% are at increased risk for development of diabetes, and intervention by lifestyle modification may be beneficial. HgbA1c greater or equal to 6.5% is considered diagnostic of diabetes. Performed By: #### 5 5454-3 #### [facility] CLIA [id number] [address] [place] [address] [place] Hepatic function 2000 panelo n 06-24-2025 Albumin [Mass/Vol] 4.5 g/dL Normal 3.9-4.9 [facility] Comment on above: Order Comment: Sarah muñiz Type: BLOOD SPECIMEN Ordering Facility: [facility] Address: [address] [place] [address] Performed By: #### 2 4325-3, 78177-0, 06275-6, LIPNF #### [facility] CLIA [id number] [address] [place], [place] [address] [place] ALP [Catalytic activity/Vol] 77 U/L Normal 38-113 [facility] Comment on above: Order Comment: Speci men Type: BLOOD SPECIMEN Ordering Facility: [facility] Address: [address] [place] [address] Performed By: #### 2 4325-3, , 07973-2, LIPNF #### [facility] CLIA [id number] [address] [place] [address] [place] ALT [Catalytic activity/Vol] 56 U/L High 10-54 [facility] Comment on above: Order Comment: Speci men Type: BLOOD SPECIMEN Ordering Facility: [facility] Address: [address] [place] [address] Performed By: #### 2 4325-3, , 25317-8, LIPNF #### [facility] CLIA [id number] [address] [place] [address] [place] AST [Catalytic activity/Vol] 64 U/L High 14-40 [facility] Comment on above: Order Comment: Speci men Type: BLOOD SPECIMEN Ordering Facility: [facility] Address: [address] [place] [address] Performed By: #### 2 4325-3, , 36267-1, LIPNF #### [facility] CLIA [id number] [address] [place], [place] [address] [place] Bilirubin [Mass/Vol] 0.7 mg/dL Normal 0.2-1.3 [facility] Comment on above: Order Comment: Speci men Type: BLOOD SPECIMEN Ordering Facility: [facility] Address: [address] [place] [address] Performed By: #### 2 4325-3, 30443-5, 82710-5, LIPNF #### [facility] CLIA [id number] [address] [place] [address] [place] Bilirubin.conjugated [Mass/Vol] 0.3 mg/dL High <0.3 [facility] Comment on above: Order Comment: Speci men Type: BLOOD SPECIMEN Ordering Facility: [facility] Address: [address] [place] [address] Performed By: #### 2 4325-3, 03827-0, 88670-4, LIPNF #### [facility] CLIA [id number] [address] [place] [address] [place] Protein [Mass/Vol] 7.5 g/dL Normal 6.3-8.0 [facility] Comment on above: Order Comment: Speci men Type: BLOOD SPECIMEN Ordering Facility: [facility] Address: [address] [place] [address] Performed By: #### 2 4325-3, 11969-1, 25711-0, LIPNF #### [facility] CLIA [id number] [address] [place] [address] [place] LIPID PANEL, NONFASTINGon Cholesterol [Mass/Vol] 148 mg/dL Normal <200 [facility] Comment on above: Order Comment: Speci men Type: BLOOD SPECIMEN Ordering Facility: [facility] Address: [address] [place] [address] Result Comment: <200 mg/dL, Desirable 200-239 mg/dL, Borderline high >239 mg/dL, High Performed By: #### 2 4325-3, 16434-1, 36512-6, LIPNF #### [facility] CLIA [id number] [address] [place], [place] [address] [place] HDL CHOLESTEROL, NF 67 mg/dL Normal >39 [facility] Comment on above: Order Comment: Speci men Type: BLOOD SPECIMEN Ordering Facility: [facility] Address: [address] [place] [address] Result Comment: 40-5 9 mg/dL, Acceptable >59 mg/dL, High: Negative risk factor for coronary heart disease <40 mg/dL, Low: Positive risk factor for coronary heart disease Performed By: #### 2 4325-3, , 68674-9, LIPNF #### [facility] CLIA [id number] [address] [facility] [address] [facility] LDL CHOLESTEROL CALCULATED, NF 49 mg/dL Normal <100 [facility] Comment on above: Order Comment: Speci men Type: BLOOD SPECIMEN Ordering Facility: [facility] Address: [address] [place] [address] Result Comment: <100 mg/dL, Optimal 100-129 mg/dL, Near optimal/above optimal 130-159 mg/dL, Borderline high 160-189 mg/dL, High >189 mg/dL, Very high Secondary prevention optimal LDL Cholesterol levels are recommended to be <70 mg/dL LDL cholesterol is calculated using the Liu-NIH equation. Performed By: #### 2 5-3, , 41229-1, LIPNF #### [facility] CLIA [id number] [address] [place] [address] [place] LDL/HDL RATIO, NF 0.73 mg/dL Normal <2.54 [facility] Comment on above: Order Comment: Merlenejan muñiz Type: BLOOD SPECIMEN Ordering Facility: [facility] Address: [address] [place] [address] Result Comment: Refe rence: 1. National Cholesterol Education Program ATP III Guideline At-A-Glance Quick Desk Reference: National Heart, Lung, and Blood [place]. National Institutes of Health. 2001: NIH Publication No. 01-3305. 2. An International Atherosclerosis Society position paper: global recommendations for the management of dyslipidemia: executive summary, Atherosclerosis. 2014: 232(2):410-413. Performed By: #### 2 4325-3, , 99141-8, LIPNF #### [facility] CLIA [id number] [address] [facility] [address] [place] NON HDL CHOL, NF 81 mg/dL Normal <130 [facility] Comment on above: Order Comment: Speci men Type: BLOOD SPECIMEN Ordering Facility: [facility] Address: [address] [place] [address] Result Comment: <130 mg/dL, Optimal 130-159 mg/dL, Near optimal/above optimal 160-189 mg/dL, Borderline high 190-219 mg/dL, High >219 mg/dL, Very high Secondary prevention optimal non HDL Cholesterol levels are recommended to be <100 mg/dL Performed By: #### 2 4325-3, 55191-2, 53626-1, LIPNF #### [facility] CLIA [id number] [address] [place] [address] [place] T CHOL/HDL RATIO NF 2.21 mg/dL Normal <5.10 [facility] Comment on above: Order Comment: Speci men Type: BLOOD SPECIMEN Ordering Facility: [facility] Address: [address] [place] [address] Performed By: #### 2 4325-3, 80077-9, 41309-4, LIPNF #### [facility] CLIA [id number] [address] [place] [address] [place] TRIGLYCERIDES, NF 205 mg/dL High <150 [facility] Comment on above: Order Comment: Speci men Type: BLOOD SPECIMEN Ordering Facility: [facility] Address: [address] [place] [address] Result Comment: <150 mg/dL, Normal 150-199 mg/dL, Borderline high 200-499 mg/dL, High >499 mg/dL, Very high Performed By: #### 2 4325-3, 26119-4, 19084-2, LIPNF #### [facility] CLIA [id number] [address] [place] [address] [place] VLDL CHOLESTEROL, NF 29 mg/dL Normal <30 [facility] Comment on above: Order Comment: Speci men Type: BLOOD SPECIMEN Ordering Facility: [facility] Address: [address] [place] [address] Performed By: #### 2 4325-3, 63882-8, 37913-6, LIPNF #### [facility] CLIA [id number] [address] [place] [address] [place] LIVER FIBROSIS AND ACTIVITYo n 06-24-2025 Fzjlf-[id number]-Btyha[place]ap[place] n [Mass/Vol] 199 mg/dL Normal 80-290 [facility] Comment on above: Order Comment: Speci men Type: BLOOD SPECIMEN Ordering Facility: [facility] Address: [address] [place] [address] Performed By: #### L IVFIB #### [facility] CLIA [id number] [address] [place] [address] [place] ALT [Catalytic activity/Vol] 64 U/L High 10-50 [facility] Comment on above: Order Comment: Speci men Type: BLOOD SPECIMEN Ordering Facility: [facility] Address: [address] [place] [address] Performed By: #### L IVFIB #### [facility] CLIA [id number] [address] [place] [address] [place] Apolipoprotein A-I [Mass/Vol] 216 mg/dL Normal >114 [facility] Comment on above: Order Comment: Speci men Type: BLOOD SPECIMEN Ordering Facility: [facility] Address: [address] [place] [address] Performed By: #### L IVFIB #### [facility] CLIA [id number] [address] [place] [address] [place] Bilirubin [Mass/Vol] 0.6 mg/dL Normal 0.2-1.3 [facility] Comment on above: Order Comment: Speci men Type: BLOOD SPECIMEN Ordering Facility: [facility] Address: [address] [place] [address] Performed By: #### L IVFIB #### [facility] CLIA [id number] [address] [place] FIBROSIS INTERPRETATION No Fibrosis Normal [facility] Comment on above: Order Comment: Speci men Type: BLOOD SPECIMEN Ordering Facility: [facility] Address: [address] [place] [address] Result Comment: Fibr osis Interpretation Table: FibroTest Score: >=0 and <=0.21 - Metavir Score: F0 No Fibrosis FibroTest Score: >0.21 and <=0.27 - Metavir Score: F0-F1 No Fibrosis FibroTest Score: >0.27 and <=0.31 - Metavir Score: F1 Minimal Fibrosis FibroTest Score: >0.31 and <=0.48 - Metavir Score: F1-F2 Minimal Fibrosis FibroTest Score: >0.48 and <=0.58- Metavir Score: F2 Moderate Fibrosis FibroTest Score: >0.58 and <=0.72 - Metavir Score: F3 Advanced Fibrosis FibroTest Score: >0.72 and <=0.74 - Metavir Score: F3-F4 Advanced Fibrosis FibroTest Score: >0.74 and <=1.00- Metavir Score: F4 Severe Fibrosis Performed By: #### L IVFIB #### [facility] CLIA [id number] [address] [place] [address] [place] Fibrosis stage Ql F0-F1 Normal [facility] Comment on above: Order Comment: Speci men Type: BLOOD SPECIMEN Ordering Facility: [facility] Address: [address] [place] [address] Performed By: #### L IVFIB #### [facility] CLIA [id number] [address] [place] [address] [place] Gamma glutamyl transferase [Catalytic activity/Vol] 279 U/L High 10-71 [facility] Comment on above: Order Comment: Speci men Type: BLOOD SPECIMEN Ordering Facility: [facility] Address: [address] [place] [address] Performed By: #### L IVFIB #### [facility] CLIA [id number] [address] [place] [address] [place] Haptoglobin [Mass/Vol] 198 mg/dL Normal 31-238 [facility] Comment on above: Order Comment: Speci men Type: BLOOD SPECIMEN Ordering Facility: [facility] Address: [address] [place] [address] Performed By: #### L IVFIB #### [facility] CLIA [id number] [address] [place] [address] [place] NECROINFLAM ACTIVITY INTERP Minimal Activity Normal [facility] Comment on above: Order Comment: Speci men Type: BLOOD SPECIMEN Ordering Facility: [facility] Address: [address] [place] [address] Result Comment: Necr oinflammatory Activity Interpretation Table: ActiTest Score: >=0 and <=0.17 - Metavir Score: A0 No activity ActiTest Score: >0.17 and <=0.29 - Metavir Score: A0-A1 No activity ActiTest Score: >0.29 and <=0.36 - Metavir Score: A1 Minimal activity ActiTest Score: >0.36 and <=0.52 - Metavir Score: A1-A2 Minimal activity ActiTest Score: >0.52 and <=0.60 - Metavir Score: A2 Significant activity ActiTest Score: >0.60 and <=0.62 - Metavir Score: A2-A3 Significant activity ActiTest Score: >0.62 and <=1.00 - Metavir Score: A3 Severe activity Performed By: #### L IVFIB #### [facility] CLIA [id number] [address] [place] [address] [place] Necroinflammatory activity grade Ql A1-A2 Normal [facility] Comment on above: Order Comment: Speci men Type: BLOOD SPECIMEN Ordering Facility: [facility] Address: [address] [place] [address] Performed By: #### L IVFIB #### [facility] CLIA [id number] [address] [place] [address] [place] [facility] Magnesium [Mass/Vol] 1.9 mg/dL Normal 1.7-2.3 [facility] Comment on above: Order Comment: Speci men Type: BLOOD SPECIMEN Ordering Facility: [facility] Address: [address] [place] [address] Performed By: #### 2 4325-3, 76822-7, 46996-7, LIPNF #### [facility] CLIA [id number] [address] [place] [address] [place] PSA SerPl-mCncon 06-24-2025 Prostate specific Ag [Mass/Vol] 0.96 ng/mL Normal <2.60 [facility] Comment on above: Order Comment: Speci men Type: BLOOD SPECIMEN Ordering Facility: [facility] Address: [address] [place] [address] Result Comment: Tota l PSA test methodology used is the Electrochemiluminescence Immunoassay by [employer]. Total PSA values by differing methodologies cannot be interchanged. Performed By: #### 2 857-1 #### [facility] CLIA [id number] [address] [place] [address] [place] PT panel Coag (PPP)on 2024 INR Coag (PPP) [Relative time] 1.1 {INR} Normal 0.9-1.3 [facility] Comment on above: Order Comment: Speci men Type: URINE SPECIMEN Ordering Facility: [facility] Address: [address] [place] [address] Result Comment: Shantel min K Antagonist (VKA) Therapeutic Range: INR 2 to 3 (Target INR of 2.5) Note: For patients treated with VKA drugs, such as warfarin, the [employer] 2012 Guideline recommends a therapeutic INR range of 2 to 3 (target INR of 2.5). This recommendation includes high-risk patients with antiphospholipid syndrome with previous arterial or venous thromboembolism, current-generation mechanical or bioprosthetic aortic heart valve replacement. Note: Patients with mechanical aortic valve replacement and additional risk factors for thromboembolic events (atrial fibrillation, previous thromboembolism, LV dysfunction, hypercoagulable conditions) or an older generation mechanical AVR (i.e., ball in-Cage) or any mechanical MVR should have a INR therapeutic range of 2.5 to 3.5 (target INR of 3). Cirilo GH, et al. Chest 2012, 141:7S-47S Blaise RA, et al. [facility] 2017, 70: 252-289 Performed By: #### 2 4356-8 #### [facility] CLIA [id number] [address] [place] [address] [place] PT Coag (PPP) [Time] 11.5 s Normal 9.7-13.0 [facility] Comment on above: Order Comment: Speci men Type: URINE SPECIMEN Ordering Facility: [facility] Address: [address] [place] [address] Performed By: #### 2 4356-8 #### [facility] IA [id number] [address] [place] [address] [place] Urinalysis complete panel (U )on 06-24-2025 Bacteria LM.HPF (Urine sed) [#/Area] Negative Normal Negative [facility] Comment on above: Order Comment: Speci men Type: URINE SPECIMEN Ordering Facility: [facility] Address: [address] [place] [address] Performed By: #### 2 4356-8 #### [facility] IA [id number] [address] [place] [address] [place] Bilirubin Ql (U) Negative Normal Negative [facility] Comment on above: Order Comment: Speci men Type: URINE SPECIMEN Ordering Facility: [facility] Address: [address] [place] [address] Performed By: #### 2 4356-8 #### [facility] CLIA [id number] [address] [place] [address] [place] Clarity (Unsp spec) Clear Normal Clear [facility] Comment on above: Order Comment: Speci men Type: URINE SPECIMEN Ordering Facility: [facility] Address: [address] [place] [address] Performed By: #### 2 4356-8 #### [facility] CLIA [id number] [address] [place] [address] [place] Color (U) Yellow Normal Yellow [facility] Comment on above: Order Comment: Speci men Type: URINE SPECIMEN Ordering Facility: [facility] Address: [address] [place] [address] Performed By: #### 2 4356-8 #### [facility] CLIA [id number] [address] [place] [address] [place] Epithelial cells LM.HPF (Urine sed) [#/Area] None Seen Normal [facility] Comment on above: Order Comment: Speci men Type: URINE SPECIMEN Ordering Facility: [facility] Address: [address] [place] [address] Performed By: #### 2 4356-8 #### [facility] CLIA [id number] [address] [place] [address] [place] Glucose Test strip (U) [Mass/Vol] Negative Normal Negative [facility] Comment on above: Order Comment: Speci men Type: URINE SPECIMEN Ordering Facility: [facility] Address: [address] [place] [address] Performed By: #### 2 4356-8 #### [facility] CLIA [id number] [address] [place] [address] [place] Hemoglobin Ql (U) Negative Normal Negative [facility] Comment on above: Order Comment: Speci men Type: URINE SPECIMEN Ordering Facility: [facility] Address: [address] [place] [address] Performed By: #### 2 4356-8 #### [facility] CLIA [id number] [address] [place], [place] [address] [place] Hyaline casts (Urine sed) [#/Area] 0 /[LPF] Normal 0 /LPF [facility] Comment on above: Order Comment: Speci men Type: URINE SPECIMEN Ordering Facility: [facility] Address: [address] [place] [address] Performed By: #### 2 4356-8 #### [facility] CLIA [id number] [address] [place] [address] [place] Ketones Ql (U) Negative Normal Negative [facility] Comment on above: Order Comment: Speci men Type: URINE SPECIMEN Ordering Facility: [facility] Address: [address] [place] [address] Performed By: #### 2 4356-8 #### [facility] CLIA [id number] [address] [place] [address] [place] Leukocyte esterase Test strip Ql (U) Negative Normal Negative [facility] Comment on above: Order Comment: Speci men Type: URINE SPECIMEN Ordering Facility: [facility] Address: [address] [place] [address] Performed By: #### 2 4356-8 #### [facility] CLIA [id number] [address] [place] [address] [place] Nitrite Ql (U) Negative Normal Negative [facility] Comment on above: Order Comment: Speci men Type: URINE SPECIMEN Ordering Facility: [facility] Address: [address] [place] [address] Performed By: #### 2 4356-8 #### [facility] CLIA [id number] [address] [place] [address] [place] pH (U) 6.5 [pH] Normal 5.0-8.0 [facility] Comment on above: Order Comment: Speci men Type: URINE SPECIMEN Ordering Facility: [facility] Address: [address] [place] [address] Performed By: #### 2 4356-8 #### [facility] CLIA [id number] [address] [id number] [address] [place] Protein (U) [Mass/Vol] Negative Normal Negative [facility] Comment on above: Order Comment: Speci men Type: URINE SPECIMEN Ordering Facility: [facility] Address: [address] [place] [address] Performed By: #### 2 4356-8 #### [facility] CLIA [id number] [address] [place] [address] [place] RBC LM.HPF (Urine sed) [#/Area] 0-2 /HPF Normal 0-2 /HPF [facility] Comment on above: Order Comment: Speci men Type: URINE SPECIMEN Ordering Facility: [facility] Address: [address] [place] [address] Performed By: #### 2 4356-8 #### [facility] CLIA [id number] [address] [place] [address] [place] Specific gravity (U) [Rel density] 1.014 Normal 1.005-1.030 [facility] Comment on above: Order Comment: Speci men Type: URINE SPECIMEN Ordering Facility: [facility] Address: [address] [place] [address] Performed By: #### 2 4356-8 #### [facility] CLIA [id number] [address] [place] [address] [place] Urobilinogen Ql (U) 0.2 EU/dL Normal 0.2-1.0 EU/dL [facility] Comment on above: Order Comment: Speci men Type: URINE SPECIMEN Ordering Facility: [facility] Address: [address] [place] [address] Performed By: #### 2 4356-8 #### [facility] CLIA [id number] [address] [place] [address] [place] WBC LM.HPF (Urine sed) [#/Area] 0-5 /HPF Normal 0-5 /HPF [facility] Comment on above: Order Comment: Speci men Type: URINE SPECIMEN Ordering Facility: [facility] Address: [address] [place] [address] Performed By: #### 2 4356-8 #### [facility] CLIA [id number] [address] [place] [address] [place] Vit B12 [facility] 09-[facility]2 025 Cobalamin (Vitamin B12) [Mass/Vol] 317 pg/mL Normal 232-1245 [facility] Comment on above: Order Comment: Speci men Type: URINE SPECIMEN Ordering Facility: [facility] Address: [address] [place] [address] Performed By: #### 2 4356-8 #### [facility] CLIA [id number] [address] [place] [address] [place] CNOVon 12-20-2024 CNOV Office Visit (FAMPWS ) MANA ASH ([id number]) 1970 M Date Time Provider Department 12/20/24 7:00 AM [facility] During your visit today, we recorded the following information about you: Temperature Pulse Respiration Blood pressure 97.7 degrees 79/minute 18/minute 126/83 Weight 126.1 kg Mary Ann Carlos PA-C 12/20/2024 7:38 AM Signed Chief Complaint Patient presents with: 6 Month Exam HPI Mana Ash is a 54 year old male who presents here today for Chronic Medical Conditions.. Patient with hx of HTN, hyperlipidemia, KATHY, GERD, elevated a1c, Depression, low b12, ED, obesity, MUNIZ and those as below. No concerns today. Weight Gain: - Weight increased from 257 lbs last year to 278 lbs. - Actively working on weight management. Tobacco Use: - Uses smokeless tobacco, approximately one can per week. Gastroenterology Follow-Up: - Has an upcoming appointment with gastroenterology. Past medical history, appointments, medications, allergies reviewed. 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 Post gall bladder removal Elevated hemoglobin A1c 07/17/2021 Elevated LFTs 08/18/2019 Erectile dysfunction 03/20/2019 Essential hypertension 08/29/2009 GERD without esophagitis 05/08/2007 Hemorrhage of gastrointestinal tract, unspecified History of COVID-19 07/17/202109/2020 Hyperlipidemia, mixed 08/29/2009 Internal hemorrhoids without mention of complication 06/10/2007 Low serum vitamin B12 07/17/2021 Major depressive disorder with single episode, in full remission (HCC) 08/12/2005 MUNIZ (nonalcoholic steatohepatitis) 06/25/2023 Obesity, Class II, BMI 35-39.9 09/05/2020 KATHY (obstructive sleep apnea) 09/09/2018 Psychophysiological insomnia 07/17/2021 Well adult exam 09/05/2020 Last done: 09/05/2020 Previous Surgical History PAST SURGICAL HISTORY Procedure Laterality Date COLONOSCOPY FLX DX W/COLLJ SPEC WHEN PFRMD 09/27/2019 Colonoscopy ESOPHAGOGASTRODUODENOSCOPY TRANSORAL DIAGNOSTIC 06/10/2007 EGD ESOPHAGOGASTRODUODENOSCOPY TRANSORAL DIAGNOSTIC 09/27/2019 EGD ESOPHAGOGASTRODUODENOSCOPY TRANSORAL DIAGNOSTIC 12/06/2019 EGD LAPAROSCOPY SURG CHOLECYSTECTOMY 02/24/2018 Cholecystectomy, lap Family History FAMILY HISTORY Problem Relation Age of Onset None Mother Coronary Artery Disease Father Diabetes Father Hypertension Father Lipids Father Glaucoma Father other (syndrom) Son Patient Allergies ALLERGIES Allergen Reactions Seasonal Allergies Other: See Comments Itchy, watery eyes, SOB, congestion Current Medications Current Outpatient Medications on File Prior to Visit Medication Sig sildenafil (VIAGRA) 100 mg tablet Take one tab by mouth daily if needed. cyanocobalamin (B-12 DOTS) 500 mcg tablet Take 1 tablet by mouth once daily. atorvastatin (LIPITOR) 20 mg tablet Take 1 tablet by mouth daily at bedtime. For cholesterol. colestipol (COLESTID) 1 gram tablet Take 1 tablet by mouth two times a day. lisinopril (ZESTRIL) 40 mg tablet Take 1 tablet by mouth once daily. pantoprazole DR (PROTONIX) 40 mg tablet Take 1 tablet by mouth daily before breakfast. Take on empty stomach, 1/2 hr before meal. COMPOUNDED PRESCRIPTION CPAP DEVICE AND SUPPLIES: CPAP 7 cmH2O with humidification. No current facility-administered medications on file prior to visit. Social History Social History Tobacco Use Smoking status: Never Smokeless tobacco: Current Types: Chew Tobacco comments: 1 can per week Vaping Use Vaping status: Never Used Substance Use Topics Alcohol use: Yes Comment: 3-4 glasses bourbon per week Drug use: No Review of Symptoms REVIEW OF SYSTEMS GENERAL: No weight loss, malaise or fevers NECK: Negative for lumps, goiter, pain and significant neck swelling RESPIRATORY: Negative for cough, hemoptysis, wheezing, COPD, dyspnea or shortness of breath CARDIOVASCULAR: Negative for chest pain, leg swelling, hypertension, CHF or palpitations NEURO: No history of headaches, syncope, paralysis, seizures or tremors SEE HPI EXAM: BP 126/83 (BP Site: Left Arm, BP Position: Sitting, BP Cuff Size: Large Adult) Pulse 79 Temp 36.5 ?C (97.7 ?F) Resp 18 Wt 126.1 kg (278 lb) SpO2 98% BMI 42.27 kg/m? Last 3 Encounter Wt Readings: Date: Wt: 12/20/2024 126.1 kg (278 lb) 06/29/2024 120.7 kg (266 lb) 12/25/2023 116.6 kg (257 lb) General Appearance: Well appearing, alert, in no acute distress, well-hydrated, well nourished.. obese Neck: Supple, no adenopathy; thyroid symmetric, normal size, no bruits. Lungs: Lungs clear to auscultation. No wheezing, rhonchi, rales.. Heart: RRR without murmur, gallop, or rubs. No ectopy. Extremities: No deformities, edema, skin discoloration, clubbing or cyanosis. Good capillary refill. . Peripheral Pulses: No (more content not included)... Normal [facility] HbA1c (Bld)on 12-20-2024 Average glucose Estimated from glycated hemoglobin (Bld) [Mass/Vol] 120 mg/dL Normal [facility] Comment on above: Order Comment: Speci men Type: BLOOD SPECIMEN Ordering Facility: [facility] Address: [address] [place] [address] Result Comment: eAG: (Estimated average glucose) is a calculated value from HgbA1c and is sales representatives of the average blood glucose level in the last 2-3 month period. Performed By: #### 5 5454-3 #### [facility] CLIA [id number] [address] [place] [address] [place] HbA1c (Bld) [Mass fraction] 5.8 % High 4.3-5.6 [facility] Comment on above: Order Comment: Speci men Type: BLOOD SPECIMEN Ordering Facility: [facility] Address: [address] [place] [address] Result Comment: Amer ican Diabetes Association guidelines indicate that patients with HgbA1c in the range 5.7-6.4% are at increased risk for development of diabetes, and intervention by lifestyle modification may be beneficial. HgbA1c greater or equal to 6.5% is considered diagnostic of diabetes. Performed By: #### 5 5454-3 #### [facility] CLIA [id number] [address] [place] [address] [place] Hepatic function 2000 panelo n 12-20-2024 Albumin [Mass/Vol] 4.6 g/dL Normal 3.9-4.9 [facility] Comment on above: Order Comment: Speci men Type: URINE SPECIMEN Ordering Facility: [facility] Address: [address] [place] [address] Performed By: #### 2 4356-8 #### [facility] CLIA [id number] [address] [place] [address] [place] ALP [Catalytic activity/Vol] 83 U/L Normal 38-113 [facility] Comment on above: Order Comment: Speci men Type: URINE SPECIMEN Ordering Facility: [facility] Address: [address] [place] [address] Performed By: #### 2 4356-8 #### [facility] CLIA [id number] [address] [place] [address] [place] ALT [Catalytic activity/Vol] 67 U/L High 10-54 [facility] Comment on above: Order Comment: Speci men Type: URINE SPECIMEN Ordering Facility: [facility] Address: [address] [place] [address] Performed By: #### 2 4356-8 #### [facility] CLIA [id number] [address] [place] [address] [place] AST [Catalytic activity/Vol] 64 U/L High 14-40 [facility] Comment on above: Order Comment: Speci men Type: URINE SPECIMEN Ordering Facility: [facility] Address: [address] [place] [address] Performed By: #### 2 4356-8 #### [facility] CLIA [id number] [address] [place] [address] [place] Bilirubin [Mass/Vol] 0.6 mg/dL Normal 0.2-1.3 [facility] Comment on above: Order Comment: Speci men Type: URINE SPECIMEN Ordering Facility: [facility] Address: [address] [place] [address] Performed By: #### 2 4356-8 #### [facility] CLIA [id number] [address] [place] [address] [place] Bilirubin.conjugated [Mass/Vol] 0.3 mg/dL High <0.3 [facility] Comment on above: Order Comment: Speci men Type: URINE SPECIMEN Ordering Facility: [facility] Address: [address] [place] [address] Performed By: #### 2 4356-8 #### [facility] CLIA [id number] [address] [place] [address] [place] Protein [Mass/Vol] 7.5 g/dL Normal 6.3-8.0 [facility] Comment on above: Order Comment: Speci men Type: URINE SPECIMEN Ordering Facility: [facility] Address: [address] [place] [address] Performed By: #### 2 4356-8 #### [facility] CLIA [id number] [address] [place] [address] [facility] [place] LIPID PANEL, NONFASTINGon Cholesterol [Mass/Vol] 135 mg/dL Normal <200 [facility] Comment on above: Order Comment: Speci men Type: URINE SPECIMEN Ordering Facility: [facility] Address: [address] [place] [address] Result Comment: <200 mg/dL, Desirable 200-239 mg/dL, Borderline high >239 mg/dL, High Performed By: #### 2 4356-8 #### [facility] CLIA [id number] [address] [place] [address] [place] HDL CHOLESTEROL, NF 68 mg/dL Normal >39 [facility] Comment on above: Order Comment: Speci men Type: URINE SPECIMEN Ordering Facility: [facility] Address: [address] [place] [address] Result Comment: 40-5 9 mg/dL, Acceptable >59 mg/dL, High: Negative risk factor for coronary heart disease <40 mg/dL, Low: Positive risk factor for coronary heart disease Performed By: #### 2 4356-8 #### [facility] CLIA [id number] [address] [place] [address] [place] LDL CHOLESTEROL, NF 26 mg/dL Normal <100 [facility] Comment on above: Order Comment: Speci men Type: URINE SPECIMEN Ordering Facility: [facility] Address: [address] [place] [address] Result Comment: <100 mg/dL, Optimal 100-129 mg/dL, Near optimal/above optimal 130-159 mg/dL, Borderline high 160-189 mg/dL, High >189 mg/dL, Very high Secondary prevention optimal LDL Cholesterol levels are recommended to be < 70 mg/dL Performed By: #### 2 4356-8 #### [facility] CLIA [id number] [address] [place] [address] [place] LDL/HDL RATIO, NF 0.38 mg/dL Normal <2.54 [facility] Comment on above: Order Comment: Speci men Type: URINE SPECIMEN Ordering Facility: [facility] Address: [address] [place] [address] Result Comment: Jack real: 1. National Cholesterol Education Program ATP III Guideline At-A-Glance Quick Desk Reference: National Heart, Lung, and Blood [place]. National Institutes of Health. 2001: NIH Publication No. 01-3305. 2. An International Atherosclerosis Society position paper: global recommendations for the management of dyslipidemia: executive summary, Atherosclerosis. 2014: 232(2):410-413. Performed By: #### 2 4356-8 #### [facility] CLIA [id number] [address] [place] [address] [place] NON HDL CHOL, NF 67 mg/dL Normal <130 [facility] Comment on above: Order Comment: Speci men Type: URINE SPECIMEN Ordering Facility: [facility] Address: [address] [place] [address] Result Comment: <130 mg/dL, Optimal 130-159 mg/dL, Near optimal/above optimal 160-189 mg/dL, Borderline high 190-219 mg/dL, High >219 mg/dL, Very high Secondary prevention optimal non HDL Cholesterol levels are recommended to be <100 mg/dL Performed By: #### 2 4356-8 #### [facility] CLIA [id number] [address] [place] [address] [place] T CHOL/HDL RATIO NF 1.99 mg/dL Normal <5.10 [facility] Comment on above: Order Comment: Speci men Type: URINE SPECIMEN Ordering Facility: [facility] Address: [address] [place] [address] Performed By: #### 2 4356-8 #### [facility] CLIA [id number] [address] [place] [address] [place] TRIGLYCERIDES, NF 207 mg/dL High <150 [facility] Comment on above: Order Comment: Speci men Type: URINE SPECIMEN Ordering Facility: [facility] Address: [address] [place] [address] Result Comment: <150 mg/dL, Normal 150-199 mg/dL, Borderline high 200-499 mg/dL, High >499 mg/dL, Very high Performed By: #### 2 4356-8 #### [facility] CLIA [id number] [address] [place], [place] [address] [place] [address] [place] VLDL CHOLESTEROL, NF 41 mg/dL High <30 [facility] Comment on above: Order Comment: Speci men Type: URINE SPECIMEN Ordering Facility: [facility] Address: [address] [place] [address] Performed By: #### 2 4356-8 #### [facility] CLIA [id number] [address] [place] [address] [place] FLUORO UP TO 1 HOURon 2017 FLUORO UP TO 1 HOUR Performed at [facility] APPROVED BY: Johnny Bassett MD IMPRESSION: 5 seconds of fluoroscopy time was utilized during laparoscopic cholecystectomy with intraoperative cholangiogram. Normal [facility] Surgical Tissue Examon 02-24 Surgical Tissue Exam Test performed at A [address] [id number]: MANA ASH [id number] REQUESTING: SHARMAINE PIMENTEL MDFINAL DIAGNOSIS: GALLBLADDER, CHOLECYSTECTOMY - CHOLELITHIASIS AND MILD CHRONICCHOLECYSTITIS.OPERAT MONA PROCEDURE:Laparoscopic cholecystectomy with cholangiogramsCLINICAL INFORMATION:RUQ pain [R10.11], calculus of gallbladder with chronic cholecystitiswithout obstruction [K80.10]GROSS DESCRIPTION:GallbladderRece ived in formalin labeled gallbladder is a previously disruptedgallbladder with separately calculi and calculi fragments. The calculirange from 0.1 to 3 cm in greatest dimension and are ovoid, and appearmixed. The gallbladder itself is 8.3 x 2 x 1.5 cm. The serosa isgreen-brown, granular and irregular. Opening reveals a brown-red andfinely granular mucosa. The cystic duct appears patent. The wall is0.1 to 0.3 cm in thickness, and sales representatives sections are submittedin one cassette. BMP:jonas CARUSO M.D., PATHOLOGIST(Electronic signature on file)Signed out: 02/25/2018 16:07PRINTED: 02/25/2018 Page 1 of 1 Normal [facility] Comment on above: Performed By: #### S URG ####[place] [address] DDI VIBRATION CONTROLLED TRA NSIENT ELASTOGRAPHY (VCTE) [facility] Vital Signs Date Time Vital Sign Value Performing Clinician Facility 12-20-2024 07:06-0400 Diastolic blood pressure 83 mm[Hg] Mary Ann Carlos PA-C Work Phone: [facility] Comment on above: average with bp machine 12-20-2024 07:06-0400 Heart rate 79 /min Mary Ann Carlos PA-C Work Phone: [facility] 12-20-2024 07:06-0400 Systolic blood pressure 126 mm[Hg] Mary Ann Carlos PA-C Work Phone: [facility] Comment on above: average with bp machine 12-20-2024 06:53-0400 Body mass index (BMI) [Ratio] 42.27 kg/m2 Mary Ann Carlos PA-C Work Phone: [facility] 12-20-2024 06:53-0400 Body temperature 97.7 [degF] Mary Ann Carlos PA-C Work Phone: [facility] 12-20-2024 06:53-0400 Body weight 126.1 kg Mary Ann Carlos PA-C Work Phone: [facility] 12-20-2024 06:53-0400 Respiratory rate 18 /min Mary Ann Carlos PA-C Work Phone: [facility] 12-20-2024 06:53-0400 SaO2% (BldA) [Mass fraction] 98 % Mary Ann Carlos PA-C Work Phone: [facility] 06-29-2024 07:54-0400 Body height 172.7 cm Babatunde Kerr MD Work Phone: [facility] 06-29-2024 07:54-0400 Body mass index (BMI) [Ratio] 40.45 kg/m2 Babatunde Kerr MD Work Phone: [facility] 06-29-2024 07:54-0400 Body weight 120.66 kg Babatunde Kerr MD Work Phone: [facility] 06-29-2024 07:54-0400 Diastolic blood pressure 84 mm[Hg] Babatunde Kerr MD Work Phone: [facility] 06-29-2024 07:54-0400 Heart rate 76 /min Babatunde Kerr MD Work Phone: [facility] 06-29-2024 07:54-0400 Respiratory rate 16 /min Babatunde Kerr MD Work Phone: [facility] 06-29-2024 07:54-0400 Systolic blood pressure 132 mm[Hg] Babatunde Kerr MD Work Phone: [facility] 08-20-2023 08:52-0500 Body height 177.8 cm Doris Guadalupe SAMPLING EXPERT.COURTROOM DEPUTY OR CALENDAR CLERK Work Phone: [facility] 08-20-2023 08:52-0500 Body temperature 97.81 [degF] Doris Guadalupe SAMPLING EXPERT.COURTROOM DEPUTY OR CALENDAR CLERK Work Phone: [facility] 08-20-2023 08:52-0500 Body weight 123.47 kg Doris Guadalupe SAMPLING EXPERT.COURTROOM DEPUTY OR CALENDAR CLERK Work Phone: [facility] 08-20-2023 08:52-0500 Diastolic blood pressure 64 mm[Hg] Doris Guadalupe SAMPLING EXPERT.COURTROOM DEPUTY OR CALENDAR CLERK Work Phone: [facility] 08-20-2023 08:52-0500 Heart rate 87 /min Doris Guadalupe SAMPLING EXPERT.COURTROOM DEPUTY OR CALENDAR CLERK Work Phone: [facility] 08-20-2023 08:52-0500 SaO2% (BldA) [Mass fraction] 97 % Doris Guadalupe SAMPLING EXPERT.COURTROOM DEPUTY OR CALENDAR CLERK Work Phone: [facility] 08-20-2023 08:52-0500 Systolic blood pressure 139 mm[Hg] Doris Guadalupe SAMPLING EXPERT.COURTROOM DEPUTY OR CALENDAR CLERK Work Phone: [facility] 01-18-2022 07:44-0400 Body height 175.3 cm Babatunde Kerr MD Work Phone: [facility] 01-18-2022 07:44-0400 Body weight 125.65 kg Babatunde Kerr MD Work Phone: [facility] 01-18-2022 07:44-0400 Diastolic blood pressure 84 mm[Hg] Babatunde Kerr MD Work Phone: [facility] 01-18-2022 07:44-0400 Heart rate 60 /min Babatunde Kerr MD Work Phone: [facility] 01-18-2022 07:44-0400 Respiratory rate 14 /min Babatunde Kerr MD Work Phone: [facility] 01-18-2022 07:44-0400 Systolic blood pressure 126 mm[Hg] Babatunde Kerr MD Work Phone: [facility] Encounters Encounter Date Encounter Type Care Provider Facility Start: 06-24-2025 Encounter for genera l adult medical examination without abnormal findings BABATUNDE KERR [facility] Start: 06-24-2025 End: 06-24-2025 ambulatory BABATUNDE KERR Facility:[facility] Start: 12-31-2024 End: 12-31-2024 ambulatory Doris Guadalupe SAMPLING EXPERT.COURTROOM DEPUTY OR CALENDAR CLERK Work Phone: Gastroenterology Comment on above: Fatty liver (Primary Dx) Start: 12-31-2024 End: 12-31-2024 Telemedicine consultation with patient Doris João SAMPLING EXPERT.COURTROOM DEPUTY OR CALENDAR CLERK Work Phone: Gastroenterology Start: 12-20-2024 End: 01-07-2025 Follow-up encounter Babatunde Kerr MD Work Phone: [facility] Comment on above: Results Start: 12-20-2024 End: 12-20-2024 ambulatory BABATUNDE KERR Facility:[facility] Start: 12-20-2024 End: 12-20-2024 Office outpatient visit 25 minutes Mary Ann Carlos PA-C Work Phone: [facility] [place] Comment on above: Essential hypertensi on (Primary Dx); Hyperlipidemia, mixed; KATHY (obstructive sleep apnea); MUNIZ (nonalcoholic steatohepatitis); Elevated hemoglobin A1c; Low serum vitamin B12; Major depressive disorder with single episode, in full remission (HCC); Class 3 severe obesity due to excess calories with serious comorbidity and body mass index (BMI) of 40.0 to 44.9 in adult (HCC); Nicotine dependence, chewing tobacco, uncomplicated Start: 10-25-2024 End: 10-27-2024 ambulatory Babatunde Kerr MD Work Phone: [facility] [place] Comment on above: CPap Start: 09-22-2024 End: 09-23-2024 Refill Babatunde Kerr MD Work Phone: [facility] [place] Comment on above: Refill Request Start: 08-20-2024 End: 08-23-2024 ambulatory Doris Guadalupe APRN.COURTROOM DEPUTY OR CALENDAR CLERK Work Phone: Gastroenterology Start: 08-20-2024 End: 08-23-2024 Patient encounter procedure Doris Guadalupe APRN.COURTROOM DEPUTY OR CALENDAR CLERK Work Phone: Gastroenterology Comment on above: 08/20 appointment Start: 06-30-2024 End: 07-05-2024 Telephone encounter Babatunde Kerr MD Work Phone: [facility] [place] Comment on above: Results Start: 06-29-2024 End: 06-29-2024 Patient encounter procedure Babatunde Kerr MD Work Phone: [facility] [place] Comment on above: Well adult exam (Eileen kacy Dx); MUNIZ (nonalcoholic steatohepatitis); Essential hypertension; Hyperlipidemia, mixed; Elevated hemoglobin A1c; GERD without esophagitis; Major depressive disorder with single episode, in full remission (HCC); Low serum vitamin B12; Obesity, Class II, BMI 35-39.9; KATHY (obstructive sleep apnea); Psychophysiological insomnia; Screening for prostate cancer; Medication management Start: 06-29-2024 End: 06-29-2024 Patient encounter status Babatunde Kerr MD Work Phone: [facility] Work Phone: Start: 06-09-2024 End: 06-09-2024 Patient encounter procedure Raghu Tomasa Maldonado OD Work Phone: Optometry Comment on above: Myopia, bilateral (P rimary Dx); Regular astigmatism of left eye; Presbyopia; Vitreous floaters of both eyes; Round retinal hole, right Start: 01-16-2024 Refill Babatunde robin MD Work Phone: [facility] [place] Comment on above: Med Change Request Start: 01-16-2024 Telephone encounter Babatunde Kerr MD Work Phone: [facility] [place] Comment on above: Medication Problem Start: 01-14-2024 Refill Babatunde robin MD Work Phone: [facility] [place] Comment on above: Refill Request Start: 01-11-2024 ambulatory Babatunde robin MD Work Phone: [facility] [place] Comment on above: meds Start: 01-07-2024 ambulatory Babatunde robin MD Work Phone: [facility] [place] Comment on above: Atorvastatin Start: 08-24-2023 Refill Babatunde robin MD Work Phone: [facility] [place] Comment on above: Refill Request Start: 08-22-2023 End: 08-22-2023 ambulatory Hepatology A5 Work Phone: Gastroenterology Start: 08-22-2023 End: 08-22-2023 Patient encounter procedure Hepatology Procedures A5 Work Phone: [facility] Start: 08-20-2023 End: 08-20-2023 Patient encounter procedure Doris Guadalupe APRN.COURTROOM DEPUTY OR CALENDAR CLERK Work Phone: Gastroenterology Comment on above: Fatty liver (Primary Dx) Start: 07-08-2023 Refill Babatunde robin MD Work Phone: [facility] [place] Comment on above: Refill Request Start: 06-25-2023 Patient encounter status Babatunde Kerr MD Work Phone: [facility] Work Phone: Start: 05-16-2023 Refill Babatunde robin MD Work Phone: [facility] [place] Comment on above: Refill Request Start: 04-07-2023 ambulatory Babatunde robin MD Work Phone: [facility] [place] Comment on above: New CPap Refill Request Robs CPap Start: 01-16-2023 Telephone encounter Babatunde Kerr MD Work Phone: [facility] [place] Comment on above: CPAP Order Start: 01-14-2023 ambulatory Babatunde robin MD Work Phone: [facility] [place] Comment on above: CPAP Start: 11-05-2022 Refill Babatunde robin MD Work Phone: [facility] [place] Comment on above: Refill Request Start: 10-18-2022 Refill Babatunde robin MD Work Phone: [facility] [place] Comment on above: Refill Request Start: 09-02-2022 Telephone encounter Babatunde Kerr MD Work Phone: [facility] [place] Comment on above: Results Start: 04-25-2022 Refill MaryA nn Strong on PA-C Work Phone: [facility] [place] Comment on above: Refill Request Start: 02-25-2022 Refill Babatunde robin MD Work Phone: [facility] [place] Comment on above: Refill Request Start: 01-27-2022 Telephone encounter Babatunde Kerr MD Work Phone: [facility] [place] Comment on above: Results Start: 01-22-2022 Telephone encounter Babatunde Kerr MD Work Phone: [facility] [place] Comment on above: Results Start: 01-18-2022 End: 01-18-2022 Patient encounter procedure Babatunde Kerr MD Work Phone: [facility] [place] Comment on above: Well adult exam (Eileen kacy Dx); Essential hypertension; Hyperlipidemia, mixed; Elevated hemoglobin A1c; GERD without esophagitis; Major depressive disorder with single episode, in full remission (HCC); KATHY (obstructive sleep apnea); Obesity, Class II, BMI 35-39.9; Low serum vitamin B12; Psychophysiological insomnia Start: 01-18-2022 End: 01-18-2022 Patient encounter status Babatunde Kerr MD Work Phone: [facility] [place] Start: 01-08-2022 Refill Babatunde robin MD Work Phone: [facility] [place] Comment on above: Refill Request Start: 09-05-2020 Patient encounter status Babatunde Kerr MD Work Phone: [facility] Work Phone: Start: 09-06-2018 End: 09-14-2018 Patient encounter procedure UNKNOWN PROVIDER [facility] Procedures Date Procedure Procedure Detail Performing Clinician Start: 12-20-2024 Lipid 1996 panel - S kiki or Plasma Doris Guadalupe SAMPLING EXPERT.COURTROOM DEPUTY OR CALENDAR CLERK Work Phone: Start: 06-29-2024 Lipid 1996 panel - S kiki or Plasma Babatunde Kerr MD Work Phone: Start: 12-25-2023 Lipid 1996 panel - S kiki or Plasma Babatunde Kerr MD Work Phone: Start: 08-22-2023 Liver elastography w /o imag w/i&r Doris Guadalupe SAMPLING EXPERT.COURTROOM DEPUTY OR CALENDAR CLERK Work Phone: Start: 06-25-2023 Lipid 1996 panel - S kiki or Plasma Babatunde Kerr MD Work Phone: Start: 09-27-2019 Colonoscopy Babatunde lainez MD Work Phone: Plan of Treatment Date Care Activity Detail Author Start: 12-20-2029 Lipid panel Lipid Screening [facility] Start: 09-27-2029 Colonoscopy COLONOSCOPY [facility] Start: 09-27-2029 COLORECTAL CANCER SCREENING COLORECTAL CANCER SCREENING [facility] Start: 09-27-2029 Screening for malignant neoplasm of colon [facility] Start: 08-18-2029 Urine microalbumin profile [facility] Start: 06-29-2029 Lipid panel Lipid Screening [facility] Start: 06-29-2029 Prostate specific antigen measurement Prostate Cancer Screening Discussion [facility] Start: 12-24-2028 Lipid panel Lipid Screening [facility] Start: 06-25-2028 Lipid 1996 panel - Serum or Plasma Lipid Screening [facility] Start: 06-25-2028 Prostate specific antigen measurement Prostate Cancer Screening Discussion [facility] Start: 12-21-2027 Diabetes Screening Diabetes Screening [facility] Start: 08-30-2027 LIPID SCREEN LIPID SCREEN [facility] Start: 06-29-2027 Diabetes Screening Diabetes Screening [facility] Start: 01-18-2027 LIPID SCREEN LIPID SCREEN [facility] Start: 08-25-2026 Diabetes Screening Diabetes Screening [facility] Start: 07-13-2026 LIPID SCREEN LIPID SCREEN [facility] Start: 06-25-2026 Diabetes Screening Diabetes Screening [facility] Start: 12-20-2025 Annual PCP Team Chronic Disease Visit Annual PCP Team Chronic Disease Visit [facility] Start: 12-20-2025 Pneumococcal Vaccine: 50+ (1 of 1 - PCV) Pneumococcal Vaccine: 50+ (1 of 1 - PCV) [facility] Comment on above: Postponed from 2019 (Declined at t his time) Start: 08-30-2025 DIABETES SCREEN DIABETES SCREEN [facility] Start: 07-02-2025 End: 12-31-2025 Basic metabolic 2000 panel - Serum or Plasma BASIC METABOLIC PANEL Lab Routine Fatty liver Expected: 07/02/2025, Expires: 12/31/2025 [facility] Comment on above: Expected: 07/02/2025, Expires: Start: 07-02-2025 End: 12-31-2025 CBC W Auto Differential panel - Blood COMPLETE BLOOD COUNT AND DIFFERENTIAL Lab Routine Fatty liver Expected: 07/02/2025, Expires: 12/31/2025 [facility] Comment on above: Expected: 07/02/2025, Expires: Start: 07-02-2025 End: 12-31-2025 Hepatic function 2000 panel - Serum or Plasma HEPATIC FUNCTION PNL Lab Routine Fatty liver Expected: 07/02/2025, Expires: 12/31/2025 [facility] Comment on above: Expected: 07/02/2025, Expires: Start: 07-02-2025 End: 10-01-2025 LIVER FIBROSIS AND ACTIVITY LIVER FIBROSIS AND ACTIVITY Lab Routine Fatty liver Expected: 07/02/2025, Expires: 10/01/2025 [facility] Comment on above: Expected: 07/02/2025, Expires: Start: 07-02-2025 End: 12-31-2025 PT panel - Platelet poor plasma by Coagulation assay PROTHROMBIN TIME Lab Routine Fatty liver Expected: 07/02/2025, Expires: 12/31/2025 [facility] Comment on above: Expected: 07/02/2025, Expires: Start: 06-29-2025 Annual PCP Team Chronic Disease Visit Annual PCP Team Chronic Disease Visit [facility] Start: 06-29-2025 Anxiety Screening Anxiety Screening [facility] Comment on above: Postponed from 1987 (Declined at t his time) Start: 06-29-2025 BP Controlled (<130/80) BP Controlled (<130/80) [facility] Start: 06-24-2025 End: 06-24-2025 Patient encounter procedure 06/24/2025 7:00 AM EDT Office Visit [facility] [place] [address] [place] [address] Babatunde Kerr MD [address] [place] [address] physical [facility] [place] Comment on above: physical Start: 03-28-2025 Influenza vaccination Influenza Vaccine (#1) [facility] Comment on above: Postponed from 05/30/2024 (Declined at t his time) Start: 01-25-2025 DIABETES SCREEN DIABETES SCREEN [facility] Start: 01-18-2025 DIABETES SCREEN DIABETES SCREEN [facility] Start: 12-31-2024 End: 12-31-2024 Follow-up encounter 12/31/2024 3:30 PM EDT [facility] Gastroenterology [address] [address] Doris Guadalupe APRN.COURTROOM DEPUTY OR CALENDAR CLERK [address] [place] [address] [facility] Comment on above: [facility] follow up Start: 12-28-2024 End: 12-28-2024 Patient encounter procedure 12/28/2024 7:20 AM EDT Office Visit [facility] [place] [address] [place] [address] Mary Ann Carlos PA-C [address] [place] [id number] 6 month follow up [facility] [place] Comment on above: 6 month follow up Start: 12-24-2024 Annual PCP Team Chronic Disease Visit Annual PCP Team Chronic Disease Visit [facility] Start: 12-24-2024 BP Controlled (<130/80) BP Controlled (<130/80) [facility] Start: 12-17-2024 End: 03-18-2025 Hemoglobin A1c in Blood HEMOGLOBIN A1C Lab Routine Elevated hemoglobin A1c Expected: 12/17/2024, Expires: 03/18/2025 [facility] Comment on above: Expected: 12/17/2024, Expires: Start: 12-17-2024 End: 03-18-2025 Hepatic function 2000 panel - Serum or Plasma HEPATIC FUNCTION PNL Lab Routine MUNIZ (nonalcoholic steatohepatitis) Essential hypertension Hyperlipidemia, mixed Expected: 12/17/2024, Expires: 03/18/2025 [facility] Comment on above: Expected: 12/17/2024, Expires: Start: 12-17-2024 End: 03-18-2025 LIPID PANEL, NONFASTING LIPID PANEL, NONFASTING Lab Routine MUNIZ (nonalcoholic steatohepatitis) Essential hypertension Hyperlipidemia, mixed Expected: 12/17/2024, Expires: 03/18/2025 [facility] Comment on above: Expected: 12/17/2024, Expires: Start: 08-20-2024 End: 08-20-2024 Follow-up encounter 08/20/2024 3:30 PM [facility] Gastroenterology [address] [address] Doris Guadalupe, SAMPLING EXPERT.COURTROOM DEPUTY OR CALENDAR CLERK [address] [facility] [place] [address] follow up Gastroenterology Comment on above: follow up Start: 07-13-2024 DIABETES SCREEN DIABETES SCREEN [facility] Start: 06-29-2024 End: 09-28-2024 CBC W Auto Differential panel - Blood [facility] Comment on above: Expected: 06/29/2024, Expires: Start: 06-29-2024 End: 09-28-2024 Cobalamin (Vitamin B12) [Mass/volume] in Serum or Plasma [facility] Work Phone: Comment on above: Expected: 06/29/2024, Expires: Start: 06-29-2024 End: 09-28-2024 Comprehensive metabolic 2000 panel - Serum or Plasma [facility] Comment on above: Expected: 06/29/2024, Expires: Start: 06-29-2024 End: 09-28-2024 Hemoglobin A1c in Blood [facility] Comment on above: Expected: 06/29/2024, Expires: Start: 06-29-2024 End: 09-28-2024 LIPID PANEL, NONFASTING [facility] Comment on above: Expected: 06/29/2024, Expires: Start: 06-29-2024 End: 09-28-2024 Magnesium [Mass/volume] in Serum or Plasma [facility] Comment on above: Expected: 06/29/2024, Expires: Start: 06-29-2024 End: 09-28-2024 Prostate specific Ag [Mass/volume] in Serum or Plasma [facility] Comment on above: Expected: 06/29/2024, Expires: Start: 06-29-2024 End: 09-28-2024 Urinalysis complete panel - Urine [facility] Comment on above: Expected: 06/29/2024, Expires: Start: 06-29-2024 End: 06-29-2024 Patient encounter procedure 06/29/2024 8:00 AM EDT Office Visit [facility] [place] [address] [place] [address] Babatunde Kerr MD [address] [facility] [place] [address] Physical [facility] [place] Comment on above: Physical Start: 06-25-2024 Annual PCP Team Chronic Disease Visit Annual PCP Team Chronic Disease Visit [facility] Start: 06-25-2024 BP Controlled (<130/80) BP Controlled (<130/80) [facility] Start: 06-25-2024 Shingrix Vaccine (1 of 2) Shingrix Vaccine (1 of 2) [facility] Comment on above: Postponed from 2019 (Insurance Cov erage) Start: 05-30-2024 Covid-19 Vaccine () Covid-19 Vaccine ( season) [facility] Start: 05-30-2024 Influenza vaccination [facility] Start: 03-28-2024 [facility] Comment on above: Postponed from 05/30/2023 (Currently Nikolai eduled) Start: 08-30-2023 ANNUAL PCP TEAM CHRONIC DISEASE VISIT ANNUAL PCP TEAM CHRONIC DISEASE VISIT [facility] Start: 08-30-2023 COVID-19 VACCINE (3 - Booster for Moderna series) COVID-19 VACCINE (3 - Booster for Moderna series) [facility] Comment on above: Postponed from 04/20/2021 (Declined at t his time) Start: 08-30-2023 COVID-19 VACCINE (3 - Moderna series) COVID-19 VACCINE (3 - Moderna series) [facility] Comment on above: Postponed from 04/20/2021 (Declined at t his time) Start: 08-20-2023 End: 11-19-2023 Alpha 1 antitrypsin [Mass/volume] in Serum or Plasma [id number] Lab Routine Fatty liver Expected: 08/20/2023, Expires: 11/19/2023 [facility] Work Phone: Comment on above: Expected: 08/20/2023, Expires: Start: 08-20-2023 End: 08-20-2024 Basic metabolic 2000 panel - Serum or Plasma BASIC METABOLIC PNL Lab Routine Fatty liver Expected: 08/20/2023, Expires: 08/20/2024 [facility] Work Phone: Comment on above: Expected: 08/20/2023, Expires: Start: 08-20-2023 End: 08-20-2024 CBC W Auto Differential panel - Blood CBC + DIFF Lab Routine Fatty liver Expected: 08/20/2023, Expires: 08/20/2024 [facility] Work Phone: Comment on above: Expected: 08/20/2023, Expires: Start: 08-20-2023 End: 11-19-2023 Ceruloplasmin [Mass/volume] in Serum or Plasma CERULOPLASMIN BLD Lab Routine Fatty liver Expected: 08/20/2023, Expires: 11/19/2023 [facility] Work Phone: Comment on above: Expected: 08/20/2023, Expires: 4 Start: 08-20-2023 End: 11-19-2023 Chronic hepatitis differentiation between hepatitis B and C virus panel - Serum or Plasma HEP REMOTE PANEL BL Lab Routine Fatty liver Expected: 08/20/2023, Expires: 11/19/2023 [facility] Work Phone: Comment on above: Expected: 08/20/2023, Expires: 4 Start: 08-20-2023 End: 11-19-2023 Ferritin [Mass/volume] in Serum or Plasma FERRITIN BLD Lab Routine Fatty liver Expected: 08/20/2023, Expires: 11/19/2023 [facility] Work Phone: Comment on above: Expected: 08/20/2023, Expires: 4 Start: 08-20-2023 End: 08-20-2024 Hepatic function 2000 panel - Serum or Plasma HEPATIC FUNCTION PNL Lab Routine Fatty liver Expected: 08/20/2023, Expires: 08/20/2024 [facility] Work Phone: Comment on above: Expected: 08/20/2023, Expires: 4 Start: 08-20-2023 End: 11-19-2023 HEPATITIS A ANTIBODY, IGG HEPATITIS A ANTIBODY, IGG Lab Routine Fatty liver Expected: 08/20/2023, Expires: 11/19/2023 [facility] Work Phone: Comment on above: Expected: 08/20/2023, Expires: 4 Start: 08-20-2023 End: 11-19-2023 Iron and Iron binding capacity panel - Serum or Plasma IRON + TIBC Lab Routine Fatty liver Expected: 08/20/2023, Expires: 11/19/2023 [facility] Work Phone: Comment on above: Expected: 08/20/2023, Expires: 4 Start: 08-20-2023 End: 11-19-2023 LIVER FIBROSIS AND ACTIVITY LIVER FIBROSIS AND ACTIVITY Lab Routine Fatty liver Expected: 08/20/2023, Expires: 11/19/2023 [facility] Work Phone: Comment on above: Expected: 08/20/2023, Expires: 4 Start: 08-20-2023 End: 11-19-2023 Liver kidney microsomal Ab [Titer] in Serum by Immunofluorescence LKM AB Lab Routine Fatty liver Expected: 08/20/2023, Expires: 11/19/2023 [facility] Work Phone: Comment on above: Expected: 08/20/2023, Expires: 4 Start: 08-20-2023 End: 11-19-2023 Mitochondria Ab [Presence] in Serum by Immunofluorescence MITOCHONDRIAL M2 IGG SERUM Lab Routine Fatty liver Expected: 08/20/2023, Expires: 11/19/2023 [facility] Work Phone: Comment on above: Expected: 08/20/2023, Expires: 4 Start: 08-20-2023 End: 11-19-2023 Nuclear Ab [Presence] in Serum by Immunoassay KITTY BLOOD Lab Routine Fatty liver Expected: 08/20/2023, Expires: 11/19/2023 [facility] Work Phone: Comment on above: Expected: 08/20/2023, Expires: 4 Start: 08-20-2023 End: 08-20-2024 PT panel - Platelet poor plasma by Coagulation assay PROTHROMBIN TIME/PT Lab Routine Fatty liver Expected: 08/20/2023, Expires: 08/20/2024 [facility] Work Phone: Comment on above: Expected: 08/20/2023, Expires: 4 Start: 08-20-2023 End: 11-19-2023 Smooth muscle Ab [Presence] in Serum SMOOTH MUSCLE AB SCR Lab Routine Fatty liver Expected: 08/20/2023, Expires: 11/19/2023 [facility] Work Phone: Comment on above: Expected: 08/20/2023, Expires: 4 Start: 05-30-2023 Covid-19 Vaccine () Covid-19 Vaccine () [facility] Start: 05-30-2023 Influenza vaccination INFLUENZA (#1) [facility] Start: 01-18-2023 ANNUAL PCP TEAM CHRONIC DISEASE VISIT ANNUAL PCP TEAM CHRONIC DISEASE VISIT [facility] Start: 01-18-2023 BP CONTROLLED (<130/80) BP CONTROLLED (<130/80) [facility] Start: 01-18-2023 SHINGRIX VACCINE (1 of 2) SHINGRIX VACCINE (1 of 2) [facility] Comment on above: Postponed from 2019 (Insurance Cov erage) Start: 11-29-2022 End: 01-29-2023 Hepatic function 2000 panel - Serum or Plasma HEPATIC FUNCTION PNL Lab Routine Hyperlipidemia, mixed Elevated LFTs Fatty liver Expected: 11/29/2022, Expires: 01/29/2023 [facility] Work Phone: Comment on above: Expected: 11/29/2022, Expires: 3 Start: 11-29-2022 End: 01-29-2023 LIPID PANEL, NONFASTING LIPID PANEL, NONFASTING Lab Routine Hyperlipidemia, mixed Fatty liver Expected: 11/29/2022, Expires: 01/29/2023 [facility] Work Phone: Comment on above: Expected: 11/29/2022, Expires: 3 Start: 07-17-2022 ANNUAL PCP TEAM CHRONIC DISEASE VISIT ANNUAL PCP TEAM CHRONIC DISEASE VISIT [facility] Start: 05-30-2022 Influenza vaccination [facility] Start: 01-22-2022 End: 03-24-2022 Basic metabolic 2000 panel - Serum or Plasma BASIC METABOLIC PNL Lab Routine Hyponatremia Hyperkalemia Expected: 01/22/2022, Expires: 03/24/2022 [facility] Work Phone: Comment on above: Expected: 01/22/2022, Expires: 2 Start: 01-22-2022 End: 03-24-2022 Cortisol [Mass/volume] in Serum or Plasma CORTISOL BLD Lab Routine Hyponatremia Hyperkalemia Expected: 01/22/2022, Expires: 03/24/2022 [facility] Work Phone: Comment on above: Expected: 01/22/2022, Expires: 2 Start: 07-26-2021 COVID-19 VACCINE (3 - Booster for Moderna series) COVID-19 VACCINE (3 - Booster for Moderna series) [facility] Start: 2019 Pneumococcal Vaccine: 50+ (1 of 1 - PCV) Pneumococcal Vaccine: 50+ (1 of 1 - PCV) [facility] Start: 2019 SHINGRIX VACCINE (1 of 2) SHINGRIX VACCINE (1 of 2) [facility] Start: 2014 COLOGUARD (FIT-DNA) COLOGUARD (FIT-DNA) [facility] Start: [address] COLONOGRAPHY [facility] Start: 2014 FECAL OCCULT BLOOD FECAL OCCULT BLOOD [facility] Start: 2014 Screening for malignant neoplasm of colon [facility] Start: 2014 SIGMOIDOSCOPY SIGMOIDOSCOPY [facility] Start: 1987 Anxiety Screening Anxiety Screening [facility] Start: 1987 BP CONTROLLED (<130/80) BP CONTROLLED (<130/80) [facility] in Start: 1987 HEPATITIS C SCREENING HEPATITIS C SCREENING [facility] Start: 1987 HIV SCREENING HIV SCREENING [facility] Start: 1969 HEPATITIS B (1 of 3 - 3-dose series) HEPATITIS B (1 of 3 - 3-dose series) [facility] DDI VIBRATION CONTRO LLED TRANSIENT ELASTOGRAPHY (VCTE) DDI VIBRATION CONTROLLED TRANSIENT ELASTOGRAPHY (VCTE) Endoscopy Routine Fatty liver Ordered: 08/20/2023 [facility] Work Phone: Comment on above: Ordered: 08/20/2023 Liver ultrasound attenuation by transient elastography DDI VIBRATION CONTROLLED TRANSIENT ELASTOGRAPHY (VCTE) Endoscopy Routine Fatty liver Ordered: 12/31/2024 [facility] Work Phone: Comment on above: Ordered: 12/31/2024 URINE FREE CORTISOL BY LC-MS/MS URINE FREE CORTISOL BY LC-MS/MS Lab Routine Hyponatremia Hyperkalemia Ordered: 01/22/2022 [facility] Work Phone: Comment on above: Ordered: 01/22/2022 End: 09-18-2024 US ABD RIGHT UPPER QUADRANT US ABD RIGHT UPPER QUADRANT Radiology Routine Fatty liver 1 Occurrences starting 08/20/2023 until 09/18/2024 [facility] Work Phone: Comment on above: 1 Occurrences starting 08/20/2023 until 09/18/2024 End: 09-18-2024 Us abdominal real time w/image limited US ABD SPLEEN Radiology Routine Fatty liver 1 Occurrences starting 08/20/2023 until 09/18/2024 [facility] Work Phone: Comment on above: 1 Occurrences starting 08/20/2023 until 09/18/2024 [facility] Immunizations Immunization Date Immunization Notes Care Provider Fa [facility] 07-30-2022 influenza, injectabl e, quadrivalent, contains preservative Babatunde Kerr MD Work Phone: [facility] 07-30-2022 influenza virus vaccine, unspecified formulation Babatunde Kerr MD Work Phone: [facility] 08-18-2019 tetanus toxoid, redu zak diphtheria toxoid, and acellular pertussis vaccine, adsorbed Babatunde Kerr MD Work Phone: [facility] 07-17-2019 influenza, seasonal, injectable Babatunde Kerr MD Work Phone: [facility] Work Phone: 07-27-2015 influenza, seasonal, injectable Babatunde Kerr MD Work Phone: [facility] Work Phone: 08-08-2012 influenza virus vaccine, unspecified formulation Babatunde Kerr MD Work Phone: [facility] Work Phone: 08-29-2009 tetanus toxoid, redu zak diphtheria toxoid, and acellular pertussis vaccine, adsorbed Babatunde Kerr MD Work Phone: [facility] 07-05-2009 influenza virus vaccine, unspecified formulation Babatunde Kerr MD Work Phone: [facility] Work Phone: Payers Date Payer Category Payer [facility] BLUE CARD PPO OOS [id number] 2002 Unknown [employer] BLUE CARD PPO OOS [id number] 2002-Present [phone] [address] [place] [address] PPO [id number] 2002 Unknown [id number] 2002 Unknown [id number] Social History Date Type Detail Facility Start: 12-09-2013 End: 08-30-2022 Tobacco smoking status NHIS Never smoked tobacco [facility] Start: 12-09-2013 End: 08-30-2022 Tobacco use and exposure User of smokeless tobacco [facility] History of tobacco use Chews [facility] Start: 10-25-2021 End: 12-20-2024 Alcohol intake Current drinker of alcohol (finding) [facility] Start: 08-07-2020 History SDOH Alcohol Frequency 4 [facility] Start: 09-01-2020 End: 07-15-2021 History SDOH Alcohol Std Drinks 2 [facility] Start: 08-07-2020 History SDOH Alcohol Comment 3-4 glasses bourbon per week [facility] Start: 08-17-2019 History SDOH Social Connections Phone 5 [facility] Start: 09-01-2020 History SDOH Social Connections Orthodox 98 [facility] Start: 08-17-2019 End: 07-15-2021 History SDOH Social Connections Membership 1 [facility] Start: 08-17-2019 End: 02-14-2020 History SDOH Social Connections Living 3 [facility] Start: 09-01-2020 Education 15 [facility] Start: 1970 Sex Assigned At Male [facility] Start: 01-08-2022 End: 08-30-2022 Exposure to SARS-CoV-2 (event) Not sure [facility] Start: 08-30-2022 Tobacco Comment 1 can per week [facility] Start: 09-01-2020 End: 06-24-2023 History of Social function [facility] Start: 09-01-2020 End: 06-24-2023 Social connection and isolation panel [facility] Frequency of Communi cation with Friends and Family Not on file [facility] How many standard dr inks containing alcohol do you have on a typical day? 3 or 4 [facility] Do you feel stress - tense, restless, nervous, or anxious, or unable to sleep at night because your mind is troubled all the time - these days [OSQ] Not at all [facility] (I/We) worried geronimo er (my/our) food would run out before (I/we) got money to buy more. Never true [facility] In the past 12 month s, was there a time when you were not able to pay the mortgage or rent on time? No [facility] Start: 09-01-2020 Gender identity Identifies as male gender (finding) [facility] Start: 09-01-2020 Sexual orientation Heterosexual (fin ding) [facility] Do you belong to any clubs or organizations such as zoroastrian groups, [employer], [employer] or athletic groups, or school groups? Yes [facility] Are you now , , , , never or living with a partner? [facility] How often to you hav e a drink containing alcohol? 2-3 time sa week [facility] Do you feel stress - tense, restless, nervous, or anxious, or unable to sleep at night because your mind is troubled all the time - these days [OSQ] To some extent [facility] How often do you hav e 6 or more drinks on 1 occasion? Weekly [facility] Functional Status Date Assessment Result Facility 06-24-2025 Liver fibr score Ser Pl Calc.FibroSure 0.26 [facility] Comment on above: Order Comment: Speci men Type: BLOOD SPECIMEN Ordering Facility: [facility] Address: [address] [place] [address] Performed By: #### L IVFIB #### [facility] CLIA [id number] [address] [place] [address] 06-24-2025 Necroinflammatory ac t score SerPl 0.37 [facility] Comment on above: Order Comment: Speci men Type: BLOOD SPECIMEN Ordering Facility: [facility] Address: [address] [place] [address] Performed By: #### L IVFIB #### [facility] CLIA [id number] [address] [place] [address] [facility] 02-25-2014 Are you deaf, or do you have serious difficulty hearing No 02/25/2014 1:26 PM EDT Pilar Mcdermott LPN No [facility] 02-25-2014 Are you blind, or do you have serious difficulty seeing, even when wearing glasses No 02/25/2014 1:26 PM EDT Pilar Mcdermott LPN No [facility] 02-25-2014 Do you have serious difficulty walking or climbing stairs No 02/25/2014 1:26 PM EDT Pilar Mcdermott LPN No [facility] 02-25-2014 Do you have difficul ty dressing or bathing No 02/25/2014 1:26 PM EDT Pilar Mcdermott LPN No [facility] 02-25-2014 Because of a physica l, mental, or emotional condition, do you have difficulty doing errands alone such as visiting a physician's office or shopping No 02/25/2014 1:26 PM EDT Pilar Mcdermott LPN No [facility] Mental Status Date Assessment Result Facility 02-25-2014 Because of a physica l, mental, or emotional condition, do you have serious difficulty concentrating, remembering, or making decisions No 02/25/2014 1:26 PM EDT Pilar Mcdermott LPN [facility] Clinical Notes 01-08-2022 to 06-24-2025 Telephone Encounter - Babatunde Kerr MD - 01/07/2025 11:13 AM EDTTelephone Encounter - Babatunde Kerr MD - 01/07/2025 11:13 AM EDTPatient InstructionsPatient InstructionsPatient Instructions Note Date & Type Note Facility 06-24-2025 Note HNO ID: [id number] Author: BABATUNDE KERR MD Service: ? Author Type: Physician Type: Progress Notes Filed: 06/24/2025 09:35 Note Text: Chief Complaint Patient presents with: Well Adult HPI Mana Ash is a 55 year old male who presents here today for a Physical and chronic health issues. Patient with Hx of Hyperlipidemia, HTN, KATHY, GERD, elevated A1c, Depression, low B12, ED, Obesity, MUNIZ as well as those reviewed and addressed below in [facility]OST[facility]io Zafar reports intermittent hematochezia associated with hemorrhoids. He notes that the bleeding typically occurs with firm stools, presenting as blood on the toilet paper and occasionally on the stool itself. The bleeding is self-limiting, lasting for 3-4 days before resolving, and recurs approximately once a month. He denies hematuria. He also reports the presence of several non-pruritic, non-painful lesions on his scalp, which his has urged him to have evaluated. He has a history of significant sun exposure over the summer, despite wearing a hat, and notes that some of the lesions are scabby. He has previously undergone cryotherapy for a similar lesion on his scalp. Zafar denies recent fevers, frequent headaches, sudden changes in hearing or vision, nasal or throat issues, cervical lymphadenopathy, wheezing, dyspnea, hemoptysis, chest pain, palpitations, lower extremity edema, nausea, emesis, diarrhea, heartburn, polyuria, polydipsia, syncope, seizures, tremors, easy bruising or bleeding, or changes in heat or cold tolerance. He does report increased fatigue and sensitivity to cold, which he attributes to aging. He continues to use a CPAP machine and has not experienced a recurrence of depression. He is currently taking Colestid, which he reports is effective in managing loose stools. However, he experiences gastrointestinal discomfort when taking more than one dose per day. He also uses Viagra as needed, which he reports is effective. He continues to chew tobacco and has no intention of quitting. He plans to receive a flu vaccination this year. Past medical history, appointments, medications, allergies reviewed. 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 Post gall bladder removal Elevated hemoglobin A1c 07/17/2021 Elevated LFTs 08/18/2019 Erectile dysfunction 03/20/2019 Essential hypertension 08/29/2009 GERD without esophagitis 05/08/2007 Hemorrhage of gastrointestinal tract, unspecified History of COVID-19 07/17/202109/2020 Hyperlipidemia, mixed 08/29/2009 Internal hemorrhoids without mention of complication 06/10/2007 Low serum vitamin B12 07/17/2021 Major depressive disorder with single episode, in full remission 08/12/2005 MUNIZ (nonalcoholic steatohepatitis) 06/25/2023 Obesity, Class II, BMI 35-39.9 09/05/2020 KATHY (obstructive sleep apnea) 09/09/2018 Psychophysiological insomnia 07/17/2021 Well adult exam 09/05/2020 Last done: 09/05/2020 Previous Surgical History PAST SURGICAL HISTORY Procedure Laterality Date COLONOSCOPY FLX DX W/COLLJ SPEC WHEN PFRMD 09/27/2019 Colonoscopy ESOPHAGOGASTRODUODENOSCOPY TRANSORAL DIAGNOSTIC 06/10/2007 EGD ESOPHAGOGASTRODUODENOSCOPY TRANSORAL DIAGNOSTIC 09/27/2019 EGD ESOPHAGOGASTRODUODENOSCOPY TRANSORAL DIAGNOSTIC 12/06/2019 EGD LAPAROSCOPY SURG CHOLECYSTECTOMY 02/24/2018 Cholecystectomy, lap Family History FAMILY HISTORY Problem Relation Age of Onset None Mother Coronary Artery Disease Father Diabetes Father Hypertension Father Lipids Father Glaucoma Father other (syndrom) Son Patient Allergies ALLERGIES Allergen Reactions Seasonal Allergies Other: See Comments Itchy, watery eyes, SOB, congestion Current Medications Current Outpatient Medications on File Prior to Visit Medication Sig Fenofibrate (LOFIBRA) 54 mg tablet Take 1 tablet by mouth once daily. Fenofibrate (LOFIBRA) 54 mg tablet Take 1 tablet by mouth once daily. lisinopril (ZESTRIL) 40 mg tablet Take 1 tablet by mouth once daily. pantoprazole DR (PROTONIX) 40 mg tablet Take 1 tablet by mouth daily before breakfast. Take on empty stomach, 1/2 hr before meal. atorvastatin (LIPITOR) 20 mg tablet Take 1 tablet by mouth daily at bedtime. For cholesterol. sildenafil (VIAGRA) 100 mg tablet Take one tab by mouth daily if needed. cyanocobalamin (B-12 DOTS) 500 mcg tablet Take 1 tablet by mouth once daily. colestipol (COLESTID) 1 gram tablet Take 1 tablet by mouth two times a day. COMPOUNDED PRESCRIPTION CPAP DEVICE AND SUPPLIES: CPAP 7 cmH2O with humidification. No current facility-administered medications on file prior to visit. Social History SOCIAL HISTORY[1] Review of Symptoms REVIEW OF SYSTEMS GENERAL: No unintentional weight loss, malaise or fevers HEENT: Negative for frequent or significant headaches, No changes in hearing or vision, no nose bleeds or other nasal problems NECK: Negat (more content not included)... [facility] 01-07-2025 Telephone encounter Note The following approved medication requests have been transmitted electronically. Requested Prescriptions Signed Prescriptions Disp Refills Fenofibrate (LOFIBRA) 54 mg tablet 90 tablet 1 Sig: Take 1 tablet by mouth once daily. Fenofibrate (LOFIBRA) 54 mg tablet 30 tablet 0 Sig: Take 1 tablet by mouth once daily. Babatunde Kerr MD [facility] 01-07-2025 Miscellaneous Notes The following approved medication requests have been transmitted electronically. Requested Prescriptions Signed Prescriptions Disp Refills Fenofibrate (LOFIBRA) 54 mg tablet 90 tablet 1 Sig: Take 1 tablet by mouth once daily. Fenofibrate (LOFIBRA) 54 mg tablet 30 tablet 0 Sig: Take 1 tablet by mouth once daily. Babatunde Kerr MD Pt notified and ok with adding medication. Asking for 30 day supply to local pharmacy [email or web address] and 90 day supply to [facility]. Ashley Barber MA Left message for patient's to contact office. Darcie Montoya MA ----- Message from Babatunde Kerr MD sent at 12/20/2024 7:47 PM EDT ----- Routing information can be restored upon returning to the encounter Let patient know his A1c is slightly elevated at 5.8%, diabetes is 6.5% and higher and normal is 5.6%-4.3%. Work on reduced sugars, sweets, carbs and starches in diet. His liver functions are improved but still elevated . His lipid panel showed Trigs elevated at 207 (goal<150 and were 371), HDL is very good at 68 and LDL is very good at 26. I would still suggest we add on fenofibrate at 54 mg a day to get these trigs lower to try to help reduce the inflammation going on in the liver. documented in this encounter [facility] 01-07-2025 Telephone encounter Note Pt notified and ok with adding medication. Asking for 30 day supply to local pharmacy [facility] and 90 day supply to [facility]. Ashley Barber MA [facility] 12-31-2024 Instructions Doris Guadalupe APRN.OLIVIA - 12/31/2024 3:46 PM EDT Blood work in 6 months Schedule fibroscan for the same day as Follow up in 6 months, scan to be done first (must be fasting for 3 hours prior) documented in this encounter [facility] 12-31-2024 History of Present illness Narrative VIRTUAL VISIT PROGRESS NOTE This is a virtual visit using [employer] Zoom Video Visit. It required patient-provider interaction for the medical decision making as documented below. I have communicated my name and active licensure. The patient's identity and physical location were verified at the time of this visit. Either the patient or their legal sales representatives has been informed of the risks and benefits of -- and alternatives to -- treatment through a remote evaluation and consents to proceed with the evaluation remotely. Mana Ash is a 54 year old male seen for fatty liver. Pmhx HTN, HLD, KATHY, Obesity Class II . DEMAR with me on 08/20/23. At that time IMPRESSION Mana Ash is a very pleasant 53 year old male with a history of HTN, HLD, KATHY, Obesity Class II who presents with what appears to be MetALD given his daily alcohol use. Drinks several bourbons at night. Candid discussion regarding management of fatty liver with weight loss and alcohol use. Currently on a lipophilic statin. Will proceed with fibroscan for staging/grading of liver; discussed results in relation to BMI >30 and centripetal adiposity -Discussed liver disease and it's progression -Discussed personal risk factors for the development of liver disease/cirrhosis -Discussed sx of worsening liver disease -Discussed need to avoid alcohol intake -Discussed maintaining a healthy, Mediterranean diet PLAN Serological evaluation: A1AT, KITTY, AMA, Ceruloplasmin, Smooth Muscle, Iron/TIBC, Ferritin, Hep Remote, HFE Fibroscan for noninvasive fibrosis/steatosis assessment Check immunity to HAV/HBV HFP, INR, CBC, BMP Return to office in 6 months. Interval hx: He is doing well On visit with his Fibroscan with CAP 388 and kpa of 7.5 Last labs on 12/20/24 with AST 64 and ALT 67 Had lost around 35 lbs after seeing me but has since gained it back Had been eating mediterranean diet but fell off from it Plans to work on getting back to eating healthier Needs twinrix vaccine Continues daily alcohol use RUQ US: 08/26/24 IMPRESSION: Fatty liver. Otherwise normal sonographic appearance of the right upper quadrant. 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 Post gall bladder removal Elevated hemoglobin A1c 07/17/2021 Elevated LFTs 08/18/2019 Erectile dysfunction 03/20/2019 Essential hypertension 08/29/2009 GERD without esophagitis 05/08/2007 Hemorrhage of gastrointestinal tract, unspecified History of COVID-19 07/17/202109/2020 Hyperlipidemia, mixed 08/29/2009 Internal hemorrhoids without mention of complication 06/10/2007 Low serum vitamin B12 07/17/2021 Major depressive disorder with single episode, in full remission 08/12/2005 MUNIZ (nonalcoholic steatohepatitis) 06/25/2023 Obesity, Class II, BMI 35-39.9 09/05/2020 KATHY (obstructive sleep apnea) 09/09/2018 Psychophysiological insomnia 07/17/2021 Well adult exam 09/05/2020 Last done: 09/05/2020 PAST SURGICAL HISTORY Procedure Laterality Date COLONOSCOPY FLX DX W/COLLJ SPEC WHEN PFRMD 09/27/2019 Colonoscopy ESOPHAGOGASTRODUODENOSCOPY TRANSORAL DIAGNOSTIC 06/10/2007 EGD ESOPHAGOGASTRODUODENOSCOPY TRANSORAL DIAGNOSTIC 09/27/2019 EGD ESOPHAGOGASTRODUODENOSCOPY TRANSORAL DIAGNOSTIC 12/06/2019 EGD LAPAROSCOPY SURG CHOLECYSTECTOMY 02/24/2018 Cholecystectomy, lap FAMILY HISTORY Problem Relation Age of Onset None Mother Coronary Artery Disease Father Diabetes Father Hypertension Father Lipids Father Glaucoma Father other (syndrom) Son Social History Tobacco Use Smoking status: Never Smokeless tobacco: Current Types: Chew Tobacco comments: 1 can per week Vaping Use Vaping status: Never Used Substance Use Topics Alcohol use: Yes Comment: 3-4 glasses bourbon per week Drug use: No Current Outpatient Medications Medication Sig lisinopril (ZESTRIL) 40 mg tablet Take 1 tablet by mouth once daily. pantoprazole DR (PROTONIX) 40 mg tablet Take 1 tablet by mouth daily before breakfast. Take on empty stomach, 1/2 hr before meal. atorvastatin (LIPITOR) 20 mg tablet Take 1 tablet by mouth daily at bedtime. For cholesterol. sildenafil (VIAGRA) 100 mg tablet Take one tab by mouth daily if needed. cyanocobalamin (B-12 DOTS) 500 mcg tablet Take 1 tablet by mouth once daily. colestipol (COLESTID) 1 gram tablet Take 1 tablet by mouth two times a day. COMPOUNDED PRESCRIPTION CPAP DEVICE AND SUPPLIES: CPAP 7 cmH2O with humidification. No current facility-administered medications for this visit. ALLERGIES Allergen Reactions Seasonal Allergies Other: See Comments Itchy, watery eyes, SOB, congestion REVIEW OF SYSTEMS: GENERAL: feeling well without fatigue, no recent change in weight PHYSICAL EXAMINATION: VIDEO EXAM: (if completed, performed via video enabled technology) GENERAL: alert and appropriate, in no distress, well-hydrated, well nourished, and happy, smiling, interactive ASSESSMENT: No diagnosis found. Mana Ash is a very pleasant 54 year old male with a history of HTN, HLD, KATHY, Obesity Class II who presents with what appears to be MetALD given his daily alcohol use. Drinks several bourbons at night. Previous serological evaluation predominately unremarkable for CLD. Fibroscan with CAP 388 and kpa of 7.5. Candid discussion regarding management of fatty liver with weight loss and alcohol use. Currently on a lipophilic statin. Discussed cutting back on alcohol use for overall liver health, encouraged cessation. Will obtain updated fibroscan. Reviewed need for Hep A and VB vaccinations as well -Discussed liver disease and it's progression -Discussed personal risk factors for the development of liver disease/cirrhosis -Discussed sx of worsening liver disease -Discussed need to avoid alcohol intake -Discussed maintaining a healthy, Mediterranean diet - Weight loss goal of 10% -increased cardiovascular exercise with goal >45 minutes 5 days weekly -avoid liver detox cleanse/supplements -not to exceed 2,000 mg tylenol daily -PCP to assist with management/screening for any and all components of metabolic syndrome PLAN: - DDI VIBRATION CONTROLLED TRANSIENT ELASTOGRAPHY (VCTE) - HEPATIC FUNCTION PNL - PROTHROMBIN TIME - COMPLETE BLOOD COUNT AND DIFFERENTIAL - BASIC METABOLIC PANEL - LIVER FIBROSIS AND ACTIVITY Follow up in 6 months with same day fibroscan to be completed first Doris Guadalupe APRN.CNP There are no Patient Instructions on file for this visit. I spent a total of 20 minutes on the date of the service which included preparing to see the patient, [id number] patient care, completing clinical documentation, obtaining and/or reviewing separately obtained history, performing a medically appropriate examination, counseling and educating the patient/family/caregiver, ordering medications, tests, or procedures, and communicating results to the patient/family/caregiver Doris Guadalupe APRN.CNP documented in this encounter [facility] 12-31-2024 Note HNO ID: [id number] Author: DORIS GUADALUPE APRN.CNP Service: ? Author Type: Nurse Practitioner Type: Progress Notes Filed: 12/31/2024 15:54 Note Text: VIRTUAL VISIT PROGRESS NOTE This is a virtual visit using mktgom Video Visit. It required patient-provider interaction for the medical decision making as documented below. I have communicated my name and active licensure. The patient's identity and physical location were verified at the time of this visit. Either the patient or their legal sales representatives has been informed of the risks and benefits of -- and alternatives to -- treatment through a remote evaluation and consents to proceed with the evaluation remotely. Mana Ash is a 54 year old male seen for fatty liver. Pmhx HTN, HLD, KATHY, Obesity Class II . DEMAR with me on 08/20/23. At that time IMPRESSION Mana Ash is a very pleasant 53 year old male with a history of HTN, HLD, KATHY, Obesity Class II who presents with what appears to be MetALD given his daily alcohol use. Drinks several bourbons at night. Candid discussion regarding management of fatty liver with weight loss and alcohol use. Currently on a lipophilic statin. Will proceed with fibroscan for staging/grading of liver; discussed results in relation to BMI >30 and centripetal adiposity -Discussed liver disease and it's progression -Discussed personal risk factors for the development of liver disease/cirrhosis -Discussed sx of worsening liver disease -Discussed need to avoid alcohol intake -Discussed maintaining a healthy, Mediterranean diet PLAN Serological evaluation: A1AT, KITTY, AMA, Ceruloplasmin, Smooth Muscle, Iron/TIBC, Ferritin, Hep Remote, HFE Fibroscan for noninvasive fibrosis/steatosis assessment Check immunity to HAV/HBV HFP, INR, CBC, BMP Return to office in 6 months. Interval hx: He is doing well On visit with his Fibroscan with CAP 388 and kpa of 7.5 Last labs on 12/20/24 with AST 64 and ALT 67 Had lost around 35 lbs after seeing me but has since gained it back Had been eating mediterranean diet but fell off from it Plans to work on getting back to eating healthier Needs twinrix vaccine Continues daily alcohol use RUQ US: 08/26/24 IMPRESSION: Fatty liver. Otherwise normal sonographic appearance of the right upper quadrant. 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 Post gall bladder removal Elevated hemoglobin A1c 07/17/2021 Elevated LFTs 08/18/2019 Erectile dysfunction 03/20/2019 Essential hypertension 08/29/2009 GERD without esophagitis 05/08/2007 Hemorrhage of gastrointestinal tract, unspecified History of COVID-19 07/17/202109/2020 Hyperlipidemia, mixed 08/29/2009 Internal hemorrhoids without mention of complication 06/10/2007 Low serum vitamin B12 07/17/2021 Major depressive disorder with single episode, in full remission 08/12/2005 MUNIZ (nonalcoholic steatohepatitis) 06/25/2023 Obesity, Class II, BMI 35-39.9 09/05/2020 KATHY (obstructive sleep apnea) 09/09/2018 Psychophysiological insomnia 07/17/2021 Well adult exam 09/05/2020 Last done: 09/05/2020 PAST SURGICAL HISTORY Procedure Laterality Date COLONOSCOPY FLX DX W/COLLJ SPEC WHEN PFRMD 09/27/2019 Colonoscopy ESOPHAGOGASTRODUODENOSCOPY TRANSORAL DIAGNOSTIC 06/10/2007 EGD ESOPHAGOGASTRODUODENOSCOPY TRANSORAL DIAGNOSTIC 09/27/2019 EGD ESOPHAGOGASTRODUODENOSCOPY TRANSORAL DIAGNOSTIC 12/06/2019 EGD LAPAROSCOPY SURG CHOLECYSTECTOMY 02/24/2018 Cholecystectomy, lap FAMILY HISTORY Problem Relation Age of Onset None Mother Coronary Artery Disease Father Diabetes Father Hypertension Father Lipids Father Glaucoma Father other (syndrom) Son Social History Tobacco Use Smoking status: Never Smokeless tobacco: Current Types: Chew Tobacco comments: 1 can per week Vaping Use Vaping status: Never Used Substance Use Topics Alcohol use: Yes Comment: 3-4 glasses bourbon per week Drug use: No Current Outpatient Medications Medication Sig lisinopril (ZESTRIL) 40 mg tablet Take 1 tablet by mouth once daily. pantoprazole DR (PROTONIX) 40 mg tablet Take 1 tablet by mouth daily before breakfast. Take on empty stomach, 1/2 hr before meal. atorvastatin (LIPITOR) 20 mg tablet Take 1 tablet by mouth daily at bedtime. For cholesterol. sildenafil (VIAGRA) 100 mg tablet Take one tab by mouth daily if needed. cyanocobalamin (B-12 DOTS) 500 mcg tablet Take 1 tablet by mouth once daily. colestipol (COLESTID) 1 gram tablet Take 1 tablet by mouth two times a day. COMPOUNDED PRESCRIPTION CPAP DEVICE AND SUPPLIES: CPAP 7 cmH2O with humidification. No current facility-administered medications for this visit. ALLERGIES Allergen Reactions Seasonal Allergies Other: See Comments Itchy, watery eyes (more content not included)... [facility] 12-21-2024 Telephone encounter Note Left message for patient's to contact office. Darcie Montoya MA [facility] 12-21-2024 Telephone encounter Note ----- Message from Babatunde Kerr MD sent at 12/20/2024 7:47 PM EDT ----- Routing information can be restored upon returning to the encounter [facility] 12-20-2024 Telephone encounter Note Let patient know his A1c is slightly elevated at 5.8%, diabetes is 6.5% and higher and normal is 5.6%-4.3%. Work on reduced sugars, sweets, carbs and starches in diet. His liver functions are improved but still elevated . His lipid panel showed Trigs elevated at 207 (goal<150 and were 371), HDL is very good at 68 and LDL is very good at 26. I would still suggest we add on fenofibrate at 54 mg a day to get these trigs lower to try to help reduce the inflammation going on in the liver. [facility] 12-20-2024 Instructions Mary Ann Carlos PA-C - 12/20/2024 7:17 AM EDT - Complete your non-fasting lab tests as scheduled. - Continue working on weight management. 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 - Refills for your medications have been sent to [facility]. - We will call you with the lab results. documented in this encounter [facility] 12-20-2024 Note HNO ID: [id number] Author: MARY ANN CARLOS PA-C Service: ? Author Type: Physician Wire Cutter Type: Progress Notes Filed: 12/20/2024 07:38 Note Text: Chief Complaint Patient presents with: 6 Month Exam HPI Mana Ash is a 54 year old male who presents here today for Chronic Medical Conditions.. Patient with hx of HTN, hyperlipidemia, KATHY, GERD, elevated a1c, Depression, low b12, ED, obesity, MUNIZ and those as below. No concerns today. Weight Gain: - Weight increased from 257 lbs last year to 278 lbs. - Actively working on weight management. Tobacco Use: - Uses smokeless tobacco, approximately one can per week. Gastroenterology Follow-Up: - Has an upcoming appointment with gastroenterology. Past medical history, appointments, medications, allergies reviewed. 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 Post gall bladder removal Elevated hemoglobin A1c 07/17/2021 Elevated LFTs 08/18/2019 Erectile dysfunction 03/20/2019 Essential hypertension 08/29/2009 GERD without esophagitis 05/08/2007 Hemorrhage of gastrointestinal tract, unspecified History of COVID-19 07/17/202109/2020 Hyperlipidemia, mixed 08/29/2009 Internal hemorrhoids without mention of complication 06/10/2007 Low serum vitamin B12 07/17/2021 Major depressive disorder with single episode, in full remission (HCC) 08/12/2005 MUNIZ (nonalcoholic steatohepatitis) 06/25/2023 Obesity, Class II, BMI 35-39.9 09/05/2020 KATHY (obstructive sleep apnea) 09/09/2018 Psychophysiological insomnia 07/17/2021 Well adult exam 09/05/2020 Last done: 09/05/2020 Previous Surgical History PAST SURGICAL HISTORY Procedure Laterality Date COLONOSCOPY FLX DX W/COLLJ SPEC WHEN PFRMD 09/27/2019 Colonoscopy ESOPHAGOGASTRODUODENOSCOPY TRANSORAL DIAGNOSTIC 06/10/2007 EGD ESOPHAGOGASTRODUODENOSCOPY TRANSORAL DIAGNOSTIC 09/27/2019 EGD ESOPHAGOGASTRODUODENOSCOPY TRANSORAL DIAGNOSTIC 12/06/2019 EGD LAPAROSCOPY SURG CHOLECYSTECTOMY 02/24/2018 Cholecystectomy, lap Family History FAMILY HISTORY Problem Relation Age of Onset None Mother Coronary Artery Disease Father Diabetes Father Hypertension Father Lipids Father Glaucoma Father other (syndrom) Son Patient Allergies ALLERGIES Allergen Reactions Seasonal Allergies Other: See Comments Itchy, watery eyes, SOB, congestion Current Medications Current Outpatient Medications on File Prior to Visit Medication Sig sildenafil (VIAGRA) 100 mg tablet Take one tab by mouth daily if needed. cyanocobalamin (B-12 DOTS) 500 mcg tablet Take 1 tablet by mouth once daily. atorvastatin (LIPITOR) 20 mg tablet Take 1 tablet by mouth daily at bedtime. For cholesterol. colestipol (COLESTID) 1 gram tablet Take 1 tablet by mouth two times a day. lisinopril (ZESTRIL) 40 mg tablet Take 1 tablet by mouth once daily. pantoprazole DR (PROTONIX) 40 mg tablet Take 1 tablet by mouth daily before breakfast. Take on empty stomach, 1/2 hr before meal. COMPOUNDED PRESCRIPTION CPAP DEVICE AND SUPPLIES: CPAP 7 cmH2O with humidification. No current facility-administered medications on file prior to visit. Social History Social History Tobacco Use Smoking status: Never Smokeless tobacco: Current Types: Chew Tobacco comments: 1 can per week Vaping Use Vaping status: Never Used Substance Use Topics Alcohol use: Yes Comment: 3-4 glasses bourbon per week Drug use: No Review of Symptoms REVIEW OF SYSTEMS GENERAL: No weight loss, malaise or fevers NECK: Negative for lumps, goiter, pain and significant neck swelling RESPIRATORY: Negative for cough, hemoptysis, wheezing, COPD, dyspnea or shortness of breath CARDIOVASCULAR: Negative for chest pain, leg swelling, hypertension, CHF or palpitations NEURO: No history of headaches, syncope, paralysis, seizures or tremors SEE HPI EXAM: BP 126/83 (BP Site: Left Arm, BP Position: Sitting, BP Cuff Size: Large Adult) Pulse 79 Temp 36.5 ?C (97.7 ?F) Resp 18 Wt 126.1 kg (278 lb) SpO2 98% BMI 42.27 kg/m? Last 3 Encounter Wt Readings: Date: Wt: 12/20/2024 126.1 kg (278 lb) 06/29/2024 120.7 kg (266 lb) 12/25/2023 116.6 kg (257 lb) General Appearance: Well appearing, alert, in no acute distress, well-hydrated, well nourished.. obese Neck: Supple, no adenopathy; thyroid symmetric, normal size, no bruits. Lungs: Lungs clear to auscultation. No wheezing, rhonchi, rales.. Heart: RRR without murmur, gallop, or rubs. No ectopy. Extremities: No deformities, edema, skin discoloration, clubbing or cyanosis. Good capillary refill. . Peripheral Pulses: Normal. Health Maintenance List Influenza Vaccine(1) due on 03/28/2025 Anxiety Screening due on 06/29/2025 Pneumococcal Vaccine: 50+(1 of 1 - PCV) due on 12/20/2025 BP Controlled (<130/80) due on 06/29/2025 Annual PCP Team Chronic Disease Visit due on 12/20/2025 Diabetes Screenin (more content not included)... [facility] 12-20-2024 History of Present illness Narrative Chief Complaint Patient presents with: 6 Month Exam HPI Mana Ash is a 54 year old male who presents here today for Chronic Medical Conditions.. Patient with hx of HTN, hyperlipidemia, KATHY, GERD, elevated a1c, Depression, low b12, ED, obesity, MUNIZ and those as below. No concerns today. Weight Gain: - Weight increased from 257 lbs last year to 278 lbs. - Actively working on weight management. Tobacco Use: - Uses smokeless tobacco, approximately one can per week. Gastroenterology Follow-Up: - Has an upcoming appointment with gastroenterology. Past medical history, appointments, medications, allergies reviewed. 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 Post gall bladder removal Elevated hemoglobin A1c 07/17/2021 Elevated LFTs 08/18/2019 Erectile dysfunction 03/20/2019 Essential hypertension 08/29/2009 GERD without esophagitis 05/08/2007 Hemorrhage of gastrointestinal tract, unspecified History of COVID-19 07/17/202109/2020 Hyperlipidemia, mixed 08/29/2009 Internal hemorrhoids without mention of complication 06/10/2007 Low serum vitamin B12 07/17/2021 Major depressive disorder with single episode, in full remission (HCC) 08/12/2005 MUNIZ (nonalcoholic steatohepatitis) 06/25/2023 Obesity, Class II, BMI 35-39.9 09/05/2020 KATHY (obstructive sleep apnea) 09/09/2018 Psychophysiological insomnia 07/17/2021 Well adult exam 09/05/2020 Last done: 09/05/2020 Previous Surgical History PAST SURGICAL HISTORY Procedure Laterality Date COLONOSCOPY FLX DX W/COLLJ SPEC WHEN PFRMD 09/27/2019 Colonoscopy ESOPHAGOGASTRODUODENOSCOPY TRANSORAL DIAGNOSTIC 06/10/2007 EGD ESOPHAGOGASTRODUODENOSCOPY TRANSORAL DIAGNOSTIC 09/27/2019 EGD ESOPHAGOGASTRODUODENOSCOPY TRANSORAL DIAGNOSTIC 12/06/2019 EGD LAPAROSCOPY SURG CHOLECYSTECTOMY 02/24/2018 Cholecystectomy, lap Family History FAMILY HISTORY Problem Relation Age of Onset None Mother Coronary Artery Disease Father Diabetes Father Hypertension Father Lipids Father Glaucoma Father other (syndrom) Son Patient Allergies ALLERGIES Allergen Reactions Seasonal Allergies Other: See Comments Itchy, watery eyes, SOB, congestion Current Medications Current Outpatient Medications on File Prior to Visit Medication Sig sildenafil (VIAGRA) 100 mg tablet Take one tab by mouth daily if needed. cyanocobalamin (B-12 DOTS) 500 mcg tablet Take 1 tablet by mouth once daily. atorvastatin (LIPITOR) 20 mg tablet Take 1 tablet by mouth daily at bedtime. For cholesterol. colestipol (COLESTID) 1 gram tablet Take 1 tablet by mouth two times a day. lisinopril (ZESTRIL) 40 mg tablet Take 1 tablet by mouth once daily. pantoprazole DR (PROTONIX) 40 mg tablet Take 1 tablet by mouth daily before breakfast. Take on empty stomach, 1/2 hr before meal. COMPOUNDED PRESCRIPTION CPAP DEVICE AND SUPPLIES: CPAP 7 cmH2O with humidification. No current facility-administered medications on file prior to visit. Social History Social History Tobacco Use Smoking status: Never Smokeless tobacco: Current Types: Chew Tobacco comments: 1 can per week Vaping Use Vaping status: Never Used Substance Use Topics Alcohol use: Yes Comment: 3-4 glasses bourbon per week Drug use: No Review of Symptoms REVIEW OF SYSTEMS GENERAL: No weight loss, malaise or fevers NECK: Negative for lumps, goiter, pain and significant neck swelling RESPIRATORY: Negative for cough, hemoptysis, wheezing, COPD, dyspnea or shortness of breath CARDIOVASCULAR: Negative for chest pain, leg swelling, hypertension, CHF or palpitations NEURO: No history of headaches, syncope, paralysis, seizures or tremors SEE HPI EXAM: BP 126/83 (BP Site: Left Arm, BP Position: Sitting, BP Cuff Size: Large Adult) Pulse 79 Temp 36.5 C (97.7 F) Resp 18 Wt 126.1 kg (278 lb) SpO2 98% BMI 42.27 kg/m Last 3 Encounter Wt Readings: Date: Wt: 12/20/2024 126.1 kg (278 lb) 06/29/2024 120.7 kg (266 lb) 12/25/2023 116.6 kg (257 lb) General Appearance: Well appearing, alert, in no acute distress, well-hydrated, well nourished.. obese Neck: Supple, no adenopathy; thyroid symmetric, normal size, no bruits. Lungs: Lungs clear to auscultation. No wheezing, rhonchi, rales.. Heart: RRR without murmur, gallop, or rubs. No ectopy. Extremities: No deformities, edema, skin discoloration, clubbing or cyanosis. Good capillary refill. . Peripheral Pulses: Normal. Health Maintenance List Influenza Vaccine(1) due on 03/28/2025 Anxiety Screening due on 06/29/2025 Pneumococcal Vaccine: 50+(1 of 1 - PCV) due on 12/20/2025 BP Controlled (<130/80) due on 06/29/2025 Annual PCP Team Chronic Disease Visit due on 12/20/2025 Diabetes Screening due on 06/29/2027 Lipid Screening due on 06/29/2029 Prostate Cancer Screening Discussion due on 06/29/2029 DTaP,Tdap,Td Vaccine(3 - Td or Tdap) due on 08/18/2029 Colorectal Cancer Screening due on 09/27/2029 Hepatitis B Vaccine Discontinued Hepatitis C Screening Discontinued HIV Screening Discontinued Shingrix Vaccine Discontinued Covid-19 Vaccine Discontinued Data reviewed N/a Assessment and Plan 1. Essential hypertension (I10) - Good control - Continue current antihypertensive management. 2. Hyperlipidemia, mixed (E78.2) - Ordered non-fasting lipid panel. - Will review results and adjust treatment as necessary. 3. KATHY (obstructive sleep apnea) (G47.33) - No changes in symptoms reported. - Continue current management. 4. MUNIZ (nonalcoholic steatohepatitis) (K75.81) - Follow-up appointment scheduled with gastroenterology. 5. Elevated hemoglobin A1c (R73.09) - Await hemoglobin A1c test. - Will review results and adjust treatment as necessary. 6. Low serum vitamin B12 (E53.8) stable - Will review results and adjust treatment as necessary. 7. 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 - No changes in management. 8. Class 3 severe obesity due to excess calories with serious comorbidity and body mass index (BMI) of 40.0 to 44.9 in adult (HCC) (E66.813) - Current weight 278 lbs; BMI indicates class 3 obesity. - Discussed importance of weight management. 9. Nicotine dependence, chewing tobacco, uncomplicated (F17.220) - Uses approximately one can of smokeless tobacco per week. - Advised on risks associated with tobacco use. Mary Ann Carlos PA-C The patient consented to the use of ambient [employer] software for draft documentation of the visit consistent with [facility] s Notice of Privacy Practices. documented in this encounter [facility] 10-27-2024 Telephone encounter Note Sleep med consult placed [facility] 10-27-2024 Miscellaneous Notes Sleep med consult placed documented in this encounter [facility] 09-23-2024 Telephone encounter Note Prescription Refill Information The patient has been identified by name and date of : Yes Caregiver verified no other encounters exist for this prescription request: Yes Caregiver confirmed with patient/requestor that no other refills are due, in the near future, with this provider at this time: Yes The last office visit in the department: 06/29/24 Does the patient have a future office visit with this provider/department: Yes Requested Prescriptions Pending Prescriptions Disp Refills sildenafil (VIAGRA) 100 mg tablet 30 tablet 1 Sig: Take one tab by mouth daily if needed. Lior Roth LPN September 23, 2024 9:40 AM [facility] 09-23-2024 Miscellaneous Notes Prescription Refill Information The patient has been identified by name and date of : Yes Caregiver verified no other encounters exist for this prescription request: Yes Caregiver confirmed with patient/requestor that no other refills are due, in the near future, with this provider at this time: Yes The last office visit in the department: 06/29/24 Does the patient have a future office visit with this provider/department: Yes Requested Prescriptions Pending Prescriptions Disp Refills sildenafil (VIAGRA) 100 mg tablet 30 tablet 1 Sig: Take one tab by mouth daily if needed. Lior Roth LPN September 23, 2024 9:40 AM documented in this encounter [facility] 07-05-2024 Telephone encounter Note Contacted . Darcie Montoya MA [facility] 07-05-2024 Miscellaneous Notes Contacted . Darcie Montoya MA Left additional message/ sent my chart message. Darcie Montoya MA Left vm for patient to return call to nurse for provider's message. Images from the original note were not included. Let patient know lipid panel showed Trigs elevated at 371 (goal<150 and were 183), HDL is good at 58. LDL is too low at 9. I would like to reduce his Lipitor back to 10 mg a day to help bring up the LDL some. This will also lead to Trigs being slightly higher. So I can place him on fenofibrate to just address this. See if ok with this and if he wants new scripts for both. His B12 is slightly low and would advise taking 500 mcg of B12 OTC once a day. His LFT's are elevated again and this is most likely a reflection of the elevated Trigs. His electrolytes, kidney functions, blood sugar screen, prostate lab, UA Mg nd CBC were all ok. The fibrosis score I discussed with him was elevated and would like to get the US with elastograghy done a [facility] if ok with it? FIB-4 Calculation: 2.76 at 06/29/2024 8:40 AM Calculated from: SGOT/AST: 88 U/L at 06/29/2024 8:40 AM SGPT/ALT: 87 U/L at 06/29/2024 8:40 AM Platelets: 188 k/uL at 06/29/2024 8:40 AM Age: 54 years documented in this encounter [facility] 07-02-2024 Telephone encounter Note Left additional message/ sent my chart message. Darcie Montoya MA [facility] 06-30-2024 Telephone encounter Note Left vm for patient to return call to nurse for provider's message. [facility] 06-30-2024 Telephone encounter Note Images from the original note were not included. Let patient know lipid panel showed Trigs elevated at 371 (goal<150 and were 183), HDL is good at 58. LDL is too low at 9. I would like to reduce his Lipitor back to 10 mg a day to help bring up the LDL some. This will also lead to Trigs being slightly higher. So I can place him on fenofibrate to just address this. See if ok with this and if he wants new scripts for both. His B12 is slightly low and would advise taking 500 mcg of B12 OTC once a day. His LFT's are elevated again and this is most likely a reflection of the elevated Trigs. His electrolytes, kidney functions, blood sugar screen, prostate lab, UA Mg nd CBC were all ok. The fibrosis score I discussed with him was elevated and would like to get the US with elastograghy done a [facility] if ok with it? FIB-4 Calculation: 2.76 at 06/29/2024 8:40 AM Calculated from: SGOT/AST: 88 U/L at 06/29/2024 8:40 AM SGPT/ALT: 87 U/L at 06/29/2024 8:40 AM Platelets: 188 k/uL at 06/29/2024 8:40 AM Age: 54 years [facility] 06-29-2024 Instructions Babatunde Kerr MD - 06/29/2024 8:27 AM EDT Please get labs done on or after 12/17/2024 prior to your next visit. documented in this encounter [facility] 06-29-2024 History of Present illness Narrative Chief Complaint Patient presents with: Physical HPI Mana Ash is a 54 year old male who presents here today for Physical. Patient with hx of HTN, hyperlipidemia, KATHY, GERD, elevated a1c, Depression, low b12, ED, obesity, MUNIZ and those as below. No Flu Shot today. Patient has been doing ok. No new issues or concerns. Was supposed to see Gastro in January however they cancelled his appt and never rescheduled. Past medical history, appointments, medications, allergies reviewed. 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 Post gall bladder removal Elevated hemoglobin A1c 07/17/2021 Elevated LFTs 08/18/2019 Erectile dysfunction 03/20/2019 Essential hypertension 08/29/2009 Fatty liver 08/18/2019 GERD without esophagitis 05/08/2007 Hemorrhage of gastrointestinal tract, unspecified History of COVID-19 07/17/202109/2020 Hyperlipidemia, mixed 08/29/2009 Internal hemorrhoids without mention of complication 06/10/2007 Low serum vitamin B12 07/17/2021 Major depressive disorder with single episode, in full remission (HCC) 08/12/2005 MUNIZ (nonalcoholic steatohepatitis) 06/25/2023 Obesity, Class II, BMI 35-39.9 09/05/2020 KATHY (obstructive sleep apnea) 09/09/2018 Psychophysiological insomnia 07/17/2021 Well adult exam 09/05/2020 Last done: 09/05/2020 Previous Surgical History PAST SURGICAL HISTORY Procedure Laterality Date COLONOSCOPY FLX DX W/COLLJ SPEC WHEN PFRMD 09/27/2019 Colonoscopy ESOPHAGOGASTRODUODENOSCOPY TRANSORAL DIAGNOSTIC 06/10/2007 EGD ESOPHAGOGASTRODUODENOSCOPY TRANSORAL DIAGNOSTIC 09/27/2019 EGD ESOPHAGOGASTRODUODENOSCOPY TRANSORAL DIAGNOSTIC 12/06/2019 EGD LAPAROSCOPY SURG CHOLECYSTECTOMY 02/24/2018 Cholecystectomy, lap Family History FAMILY HISTORY Problem Relation Age of Onset None Mother Coronary Artery Disease Father Diabetes Father Hypertension Father Lipids Father Glaucoma Father other (syndrom) Son Patient Allergies ALLERGIES Allergen Reactions Seasonal Allergies Other: See Comments Itchy, watery eyes, SOB, congestion Current Medications Current Outpatient Medications on File Prior to Visit Medication Sig atorvastatin (LIPITOR) 20 mg tablet Take 1 tablet by mouth daily at bedtime. For cholesterol. sildenafil (VIAGRA) 100 mg tablet Take one tab by mouth daily if needed. pantoprazole DR (PROTONIX) 40 mg tablet Take 1 tablet by mouth once daily. colestipol (COLESTID) 1 gram tablet Take 1 tablet by mouth two times a day. lisinopril (ZESTRIL) 40 mg tablet Take 1 tablet by mouth once daily. lisinopril (ZESTRIL) 40 mg tablet Take 1 tablet by mouth once daily. colestipol (COLESTID) 1 gram tablet Take 1 tablet by mouth two times a day. pantoprazole DR (PROTONIX) 40 mg tablet Take 1 tablet by mouth daily before breakfast. Take on empty stomach, 1/2 hr before meal. atorvastatin (LIPITOR) 20 mg tablet Take 1 tablet by mouth daily at bedtime. For cholesterol. COMPOUNDED PRESCRIPTION CPAP DEVICE AND SUPPLIES: CPAP 7 cmH2O with humidification. No current facility-administered medications on file prior to visit. Social History Social History Tobacco Use Smoking status: Never Smokeless tobacco: Current Types: Chew Tobacco comments: 1 can per week Vaping Use Vaping status: Never Used Substance Use Topics Alcohol use: Yes Comment: 3-4 glasses bourbon per week Drug use: No Review of Symptoms REVIEW OF SYSTEMS GENERAL: No weight loss, malaise or fevers HEENT: Negative for frequent or significant headaches, No changes in hearing or vision, no nose bleeds or other nasal problems NECK: Negative for lumps, goiter, pain and significant neck swelling RESPIRATORY: Negative for cough, hemoptysis, wheezing, COPD, dyspnea or shortness of breath CARDIOVASCULAR: Negative for chest pain, leg swelling, hypertension, CHF or palpitations GI: No nausea, vomiting, or diarrhea, No heartburn or reflux symptoms, and occasional blood with his hemorrhoid. : No history of dysuria, frequency or blood MUSCULOSKELETAL: Negative for joint pain or swelling, back pain or muscle pain SKIN: Negative for lesions, rash, and itching PSYCH: Negative for sleep disturbance, mood disorder and recent psychosocial stressors HEMATOLOGY/LYMPHOLOGY: Negative for prolonged bleeding, bruising easily or swollen nodes ENDOCRINE: Negative for cold or heat intolerance, polyuria, polydipsia and goiter NEURO: No history of headaches, syncope, paralysis, seizures or tremors EXAM: BP 132/84 (BP Site: Right Arm, BP Position: Sitting, BP Cuff Size: Large Adult) Pulse 76 Resp 16 Ht 172.7 cm (5' 8) Wt 120.7 kg (266 lb) BMI 40.45 kg/m Last 6 Encounter Wt Readings: Date: Wt: 06/29/2024 120.7 kg (266 lb) 12/25/2023 116.6 kg (257 lb) 08/20/2023 123.5 kg (272 lb 3.2 oz) 06/25/2023 122.5 kg (270 lb) 08/30/2022 127.9 kg (282 lb) 01/18/2022 125.6 kg (277 lb) General Appearance: Well appearing, alert, in no acute distress, well-hydrated, well nourished. and Morbidly obese. Skin: Skin color, texture, turgor normal, no suspicious rashes or lesions. Head: Normocephalic, no masses, lesions, tenderness or abnormalities. Eyes: Anicteric sclera. Pupils are equally round and reactive to light. Extraocular movements are intact. . Ears: External ears, TM's normal, canals clear. Nose/Sinuses: Nares normal, septum midline, mucosa normal, no drainage or sinus tenderness. Oropharynx: Lips, mucosa, and tongue normal, teeth and gums normal, oropharynx normal. Neck: Supple, no adenopathy; thyroid symmetric, normal size, no bruits. Lungs: Lungs clear to auscultation. No wheezing, rhonchi, rales.. Heart: RRR without murmur, gallop, or rubs. No ectopy. Abdomen: Normal abdominal exam, Abdomen soft, non-tender. Bowel sounds normal. No masses, organomegaly. Extremities: No deformities, edema, skin discoloration, Good capillary refill. . Musculoskeletal: Muscular strength intact, No joint swelling, deformity, or tenderness. Peripheral Pulses: Normal. Genitalia: Normal, Penis normal. No urethral discharge. Scrotum normal to palpation. No hernia.. Rectal: Normal exam. Health Maintenance List Anxiety Screening Never done Shingrix Vaccine(1 of 2) Never done Influenza Vaccine(1) due on 05/30/2024 Covid-19 Vaccine(3 - season) due on 05/30/2024 Annual PCP Team Chronic Disease Visit due on 12/24/2024 BP Controlled (<130/80) due on 12/24/2024 Diabetes Screening due on 08/25/2026 Prostate Cancer Screening Discussion due on 06/25/2028 Lipid Screening due on 12/24/2028 DTaP,Tdap,Td Vaccine(3 - Td or Tdap) due on 08/18/2029 Colorectal Cancer Screening due on 09/27/2029 Hepatitis B Vaccine Discontinued Hepatitis C Screening Discontinued HIV Screening Discontinued Data reviewed A/P ASSESSMENT/PLAN: 1. Well adult exam - ICD9: V70.0, ICD10: Z00.00 (primary diagnosis) - Counseled on healthy diet and regular exercise - Discussed need for and benefit of weight loss. BMI 40.44 kg/(m^2) - Follow up for annual exam in one year - PROSTATE-SPECIFIC ANTIGEN DIAGNOSTIC 2. Encounter for immunization - ICD9: V03.89, ICD10: Z23 - INFLUENZA VACCINE, AGE 6MO-64YR, TRIVALENT (AFLURIA, FLULAVAL, FLUVIRIN, FLUZONE) 3. MUNIZ (nonalcoholic steatohepatitis) - ICD9: 571.8, ICD10: K75.81 - patient needs appt with gastro rescheduled. Cont - COLESTIPOL 1 GRAM TABLET check - COMPREHENSIVE METABOLIC PANEL - COMPLETE BLOOD COUNT AND DIFFERENTIAL 4. Essential hypertension - ICD9: 401.9, ICD10: I10 - Controlled - Continue current medications - Recommend home blood pressure monitoring, to bring results to next visit - Encouraged sodium restriction, DASH or Mediterranean diet - Recommend regular aerobic exercise - Discussed need for and benefit of weight loss. BMI 40.44 kg/(m^2) - COMPREHENSIVE METABOLIC PANEL - URINALYSIS, WITH MICROSCOPIC - LIPID PANEL, NONFASTING 5. Hyperlipidemia, mixed - ICD9: 272.2, ICD10: E78.2 - Control undetermined, due for labs - Continue current medications - Counseled on healthy diet and regular exercise - Discussed need for and benefit of weight loss. BMI 40.44 kg/(m^2) Check - COMPREHENSIVE METABOLIC PANEL - URINALYSIS, WITH MICROSCOPIC - LIPID PANEL, NONFASTING 6. Elevated hemoglobin A1c - ICD9: 790.29, ICD10: R73.09 Check - HEMOGLOBIN A1C 7. GERD without esophagitis - ICD9: 530.81, ICD10: K21.9 - Continue treatment with Protonix 40 mg every day Check - VITAMIN B12 and Mg 8. Major depressive disorder with single episode, in full remission (HCC) - ICD9: 296.26, ICD10: F32.5 - stable not needing meds. 9. Low serum vitamin B12 - ICD9: 266.2, ICD10: E53.8 Check - VITAMIN B12 - COMPLETE BLOOD COUNT AND DIFFERENTIAL 10. Obesity, Class II, BMI 35-39.9 - ICD9: 278.00, ICD10: E66.812 - patient working on weight loss. 11. KATHY (obstructive sleep apnea) - ICD9: 327.23, ICD10: G47.33 - wearing CPAP nightly with benefit. 12. Psychophysiological insomnia - ICD9: 307.42, ICD10: F51.04 - stable, pretty much resolved with being on CPAP. 13. Screening for prostate cancer - ICD9: V76.44, ICD10: Z12.5 Check - PROSTATE-SPECIFIC ANTIGEN DIAGNOSTIC 14. Medication management - ICD9: V58.69, ICD10: Z79.899 Check - VITAMIN B12 - MAGNESIUM Requested Prescriptions Signed Prescriptions Disp Refills atorvastatin (LIPITOR) 20 mg tablet 90 tablet 1 Sig: Take 1 tablet by mouth daily at bedtime. For cholesterol. colestipol (COLESTID) 1 gram tablet 180 tablet 1 Sig: Take 1 tablet by mouth two times a day. lisinopril (ZESTRIL) 40 mg tablet 90 tablet 1 Sig: Take 1 tablet by mouth once daily. pantoprazole DR (PROTONIX) 40 mg tablet 90 tablet 1 Sig: Take 1 tablet by mouth daily before breakfast. Take on empty stomach, 1/2 hr before meal. F/u 6 months routine check Lipids, LFT's and A1c prior Babatunde Kerr MD documented in this encounter [facility] 06-09-2024 Instructions Raghu Maldonado II, OD - 06/09/2024 8:52 AM EDT Assessment and Plan H52.13 Myopia, bilateral (primary encounter diagnosis) H52.222 Regular astigmatism of left eye H52.4 Presbyopia Comment: Ocular health maintained with contact lens use. Good fit. Navarro stable. Will try use of daily disposables to see if better end of day comfort. Recheck in one year. H43.393 Vitreous floaters of both eyes Comment: Vitreal floaters stable both eyes. Retinas flat and intact with no apparent retinal tear or traction. Monitor yearly. H33.321 Round retinal hole, right Comment: Edges flat. Discussed S/S of retinal tear/detachment. Monitor for change. I have confirmed and edited as necessary the relevant HPI, ophthalmic history, ROS, and the neuro exam findings as obtained by others. I have seen and examined Mana Ash. I have discussed the case and the management of this patient's care with the Resident/Fellow, if applicable. I also have reviewed and agree with the assessment and plan as stated above and agree with all of its relevant components. documented in this encounter [facility] 06-09-2024 History of Present illness Narrative Assessment and Plan H52.13 Myopia, bilateral (primary encounter diagnosis) H52.222 Regular astigmatism of left eye H52.4 Presbyopia Comment: Ocular health maintained with contact lens use. Good fit. Navarro stable. Will try use of daily disposables to see if better end of day comfort. Recheck in one year. H43.393 Vitreous floaters of both eyes Comment: Vitreal floaters stable both eyes. Retinas flat and intact with no apparent retinal tear or traction. Monitor yearly. H33.321 Round retinal hole, right Comment: Edges flat. Discussed S/S of retinal tear/detachment. Monitor for change. I have confirmed and edited as necessary the relevant HPI, ophthalmic history, ROS, and the neuro exam findings as obtained by others. I have seen and examined Mana Ash. I have discussed the case and the management of this patient's care with the Resident/Fellow, if applicable. I also have reviewed and agree with the assessment and plan as stated above and agree with all of its relevant components. documented in this encounter [facility] 01-16-2024 Miscellaneous Notes Patient Allie returned call and said she has had enough from [facility] pharmacy. She said from right now just leave the rx as it is so she can get the short term rx picked up at [facility], she will pay out of pocket for them. She was told [facility] processed the rx sent today and sending them out. Contacted pharmacy at [facility] and spoke with Lopez Mena and verbally gave prescriptions to them. Linsopril Lipitor Colestipol Protonix Spoke with another tech and apparently patient has 2 files one with Mana and then with [facility]. They are going to merge those files. Did speak with and let her know that we verbally gave them the prescriptions. She voiced understanding. Darcie Montoya MA Patient's spouse calling today stating that she called [facility] regarding the prescriptions for 90 days. According to our records it looks as if the prescriptions have been called in (01/11). Patient's spouse states [facility] has attempted to call our office several times with no response. Patient's spouse is very frustrated and is asking for a return call. [phone] documented in this encounter [facility] 01-14-2024 Miscellaneous Notes Patient's calling for 90 day supply refills to [facility]. These have already been sent. Shantell M Lentine, RN documented in this encounter [facility] 01-12-2024 Miscellaneous Notes The following approved medication requests have been transmitted electronically. Requested Prescriptions Signed Prescriptions Disp Refills atorvastatin (LIPITOR) 20 mg tablet 14 tablet 0 Sig: Take 1 tablet by mouth daily at bedtime. For cholesterol. sildenafil (VIAGRA) 100 mg tablet 30 tablet 1 Sig: Take one tab by mouth daily if needed. pantoprazole DR (PROTONIX) 40 mg tablet 14 tablet 0 Sig: Take 1 tablet by mouth once daily. colestipol (COLESTID) 1 gram tablet 180 tablet 1 Sig: Take 1 tablet by mouth two times a day. lisinopril (ZESTRIL) 40 mg tablet 14 tablet 0 Sig: Take 1 tablet by mouth once daily. lisinopril (ZESTRIL) 40 mg tablet 90 tablet 1 Sig: Take 1 tablet by mouth once daily. colestipol (COLESTID) 1 gram tablet 28 tablet 0 Sig: Take 1 tablet by mouth two times a day. pantoprazole DR (PROTONIX) 40 mg tablet 90 tablet 1 Sig: Take 1 tablet by mouth daily before breakfast. Take on empty stomach, 1/2 hr before meal. atorvastatin (LIPITOR) 20 mg tablet 90 tablet 1 Sig: Take 1 tablet by mouth daily at bedtime. For cholesterol. Babatunde Kerr MD Patient requested so that name reads Zafar Ash. Not Mana. Patient also needs a 90 supply to [facility]. Darcie Montoya MA documented in this encounter [facility] 01-08-2024 Miscellaneous Notes In review of chart, patient is scheduled for physical 06/29. RAMONE Morales Patient needs complete PE scheduled on or after 06/25/2024. The following approved medication requests have been transmitted electronically. Requested Prescriptions Signed Prescriptions Disp Refills atorvastatin (LIPITOR) 20 mg tablet 30 tablet 5 Sig: Take 1 tablet by mouth daily at bedtime. For cholesterol. Babatunde Kerr MD Patient has been identified by name and date of : yes Spouse phones for refill(s): Requested Prescriptions Pending Prescriptions Disp Refills atorvastatin (LIPITOR) 20 mg tablet 30 tablet 0 Sig: Take 1 tablet by mouth daily at bedtime. For cholesterol. Date of last office visit in primary care: 12/25/2023 Date of next office visit in primary care: Visit date not found Please advise. Thank you. Mary Ann Galvan MA. documented in this encounter [facility] 08-25-2023 Miscellaneous Notes Patient has been identified by name and date of : Yes Requested Prescriptions Pending Prescriptions Disp Refills atorvastatin (LIPITOR) 20 mg tablet 90 tablet 1 Sig: Take 1 tablet by mouth daily at bedtime. For cholesterol. RX INSTRUCTIONS: Patient aware RX will be sent to pharmacy. No need to notify patient. ALVARADO Maier 05/2023Aug 0111/2023 Last refill: 05/2023 documented in this encounter [facility] 08-25-2023 Miscellaneous Notes Patient has been identified by name and date of : Yes Requested Prescriptions Pending Prescriptions Disp Refills pantoprazole DR (PROTONIX) 40 mg tablet 90 tablet 1 Sig: Take 1 tablet by mouth once daily. RX INSTRUCTIONS: Patient aware RX will be sent to pharmacy. No need to notify patient. ALVARADO Maier 05/2023Aug 0111/2022 Last refill: 04/2023 documented in this encounter [facility] 08-22-2023 History of Present illness Narrative Patient fasting for 3 hours:Yes Fibroscan was performed on August 22, 2023, by Erica Milan LPN and results are interpreted by Doris Gudaalupe APRN.[employer] CALENDAR CLERK Diagnosis: Fatty liver Please refer to get images report for individual readings Number of readings: 10 IQR %: 22 E (kpa): 7.5 CAP: 388 Impression The reading was adequate. FS=7.5 kPA. The CAP score is 388 and corresponds to steatosis grade of S3. This reading corresponds: A 91% chance of stage 0-2 fibrosis A 9% chance of stage 3-4 fibrosis (advanced fibrosis) A 1.3% chance of stage 4 fibrosis (cirrhosis).A kPa >20 indicates a high likelihood of stage 4 fibrosis/cirrhosis, consider further testing to confirm. Doris Guadalupe APRN.[facility] NAFLD Fibroscan Fibrosis Risk <7 kPA = F0-F2 97%, F3+F4 3%, F4 <1% <10 kPA = F0-F2 91%, F3+F4 9%, F4 1.3% 10-15 kPA = F0-F2 56%, F3+F4 43%, F4 14% >15 kPA = F0-F2 26%, F3+F4 74%, F4 46% Grade CAP value up to 237 dB/M corresponds to S0 (< 10 % Fat) CAP value between (238 - 258 dB/M) corresponds to S1 (>/= 11 % Fat) CAP value between (259 - 289 dB/M) corresponds to S2 (>/= 33 % Fat) CAP value > 290dB/M corresponds to S3 (>/= 67 % Fat) stage 0 ( S0:< 10 % steatosis) stage 1 (>/= S1: 11%-33% steatosis) stage 2 (>/= S2: 34%-66% steatosis) stage 3 (>/= S3: > 66% steatosis) Reference Evan Y, Brodie Q, Evan T, Leslie J, Evan H, Baltazar T. Controlled attenuation parameter for assessment of hepatic steatosis grades: a diagnostic meta-analysis. Int J Clin Exp Med. 2015 Jun 15;8(10):04290-67. PMID: 11558966; PMCID: [id number]. Wesley Galarza, Paulina NOÉ, Natividad M, Stephanie F, Farzaneh J, Deb O, Cain F, Sudeep M, Hector G, Matthew A, Leatha E, Leigha L, Nolberto G, Obdulio A, Lizandro U, Tracy S, Jamil P, Francois V, Alvarado V, Deondre Galarza, Brisa ESPAÑA. Refining the Baveno elastography criteria for the definition of compensated advanced chronic liver disease. J Hepatol. 2020;74(5):5399-3952. doi: 10.1016/j.jhep.2020.11.050. Epub 2019Sep 06. PMID: 55809952. documented in this encounter [facility] 08-20-2023 Instructions Doris Guadalupe APRN.OLIVIA - 08/20/2023 9:19 AM EST Blood work today on the first floor or at any [facility] labs Schedule Fibroscan and ultrasound for the same day Cut back on alcohol use Avoid any liver detox or cleanses Ok to take up to 2,000 mg of tylenol/day Black coffee helps with fatty liver As we discussed at your appointment fatty liver is addressed through lifestyle changes with improving eating habits and increasing physical activity. We recommend the Mediterranean Diet which includes lean meats/proteins (chicken, fish, turkey), fresh fruit & veggies, cutting back on red meat, eating more whole grains, cutting out starchy carbs/fried foods, avoid fried/processed/fast food Follow up in 6 months documented in this encounter [facility] 08-20-2023 History of Present illness Narrative NAME: Mana Ash AGE: [age] year old Patient is referred in consultation by Mary Ann Carlos for an opinion regarding fatty liver and my final recommendations will be communicated back to the requesting physician by way of shared Medical Record. PRESENTING COMPLAINT & HISTORY Mana Ash is a 53 year old year old male who presents with fatty liver. Pmhx HTN, HLD, KATHY, Obesity Class II Here today with and son Has been doing well overall Liver enzymes chronically elevated Last liver enzymes in May AST 109, ALT 93 Pt currently denies jaundice, confusion/disorientation, ascites, hematemesis, dark/tarry stools, jasper colored stools, or dark urine. All other systems reviewed and are negative Metabolic Syndrome Risk factors: /5 1) Diabetes/ Abnormal FBS >100mg/dL: no 2) Hypertension : yes 3)Triglycerides more then 150 : Yes 4) HDL (<50 female and <40 male): no 5) Central obesity ( Waist >102 men and >88 female) - Yes, Body mass index is 39.06 kg/(m^2) Risk Factors for Liver Disease: 1. Blood transfusions before 1991: No 2. IVDA: No 3. Intranasal coccaine use: No 4. Tattoos: Yes, professionally 5. Service: No 6. High risk sexual behavior: No 7. Alcohol: Yes, 3-5 bourbons/night 8. Obesity: yes 9. Hyperlipidemia: Yes 10. Prolonged exposure to hepatotoxic meds: No 11. Other autoimmune disorders No No daily tylenol use No herbal supplements PAST SURGICAL HISTORY Procedure Laterality Date COLONOSCOPY FLX DX W/COLLJ SPEC WHEN PFRMD 09/27/2019 Colonoscopy ESOPHAGOGASTRODUODENOSCOPY TRANSORAL DIAGNOSTIC 06/10/2007 EGD ESOPHAGOGASTRODUODENOSCOPY TRANSORAL DIAGNOSTIC 09/27/2019 EGD ESOPHAGOGASTRODUODENOSCOPY TRANSORAL DIAGNOSTIC 12/06/2019 EGD LAPAROSCOPY SURG CHOLECYSTECTOMY 02/24/2018 Cholecystectomy, lap PAST MEDICAL HISTORY Diagnosis Date Diarrhea due to malabsorption 08/18/2019 Post gall bladder removal Elevated hemoglobin A1c 07/17/2021 Elevated LFTs 08/18/2019 Erectile dysfunction 03/20/2019 Essential hypertension 08/29/2009 Fatty liver 08/18/2019 GERD without esophagitis 05/08/2007 Hemorrhage of gastrointestinal tract, unspecified History of COVID-19 07/17/202109/2020 Hyperlipidemia, mixed 08/29/2009 Internal hemorrhoids without mention of complication 06/10/2007 Low serum vitamin B12 07/17/2021 Major depressive disorder with single episode, in full remission (HCC) 08/12/2005 MUNIZ (nonalcoholic steatohepatitis) 06/25/2023 Obesity, Class II, BMI 35-39.9 09/05/2020 KATHY (obstructive sleep apnea) 09/09/2018 Psychophysiological insomnia 07/17/2021 Well adult exam 09/05/2020 Last done: 09/05/2020 Social History Tobacco Use Smoking status: Never Smokeless tobacco: Current Types: Chew Tobacco comments: 1 can per week Vaping Use Vaping Use: Never used Substance Use Topics Alcohol use: Yes Comment: 3-4 glasses bourbon per week Drug use: No Current Outpatient Medications Medication Sig Dispense Refill sildenafil (VIAGRA) 100 mg tablet Take one tab by mouth daily if needed. 30 tablet 1 atorvastatin (LIPITOR) 20 mg tablet Take 1 tablet by mouth daily at bedtime. For cholesterol. 90 tablet 1 colestipol (COLESTID) 1 gram tablet Take 1 tablet by mouth twice daily. [address] (PROTONIX) 40 mg tablet Take 1 tablet by mouth once daily. 90 tablet 1 lisinopril (ZESTRIL) 40 mg tablet Take 1 tablet by mouth once daily. 90 tablet 3 COMPOUNDED PRESCRIPTION CPAP DEVICE AND SUPPLIES: CPAP 7 cmH2O with humidification. 1 Each 0 No current facility-administered medications for this visit. ALLERGIES Allergen Reactions Seasonal Allergies Other: See Comments Itchy, watery eyes, SOB, congestion FAMILY HISTORY Liver Problems: Yes believes father had fatty liver FAMILY HISTORY Problem Relation Age of Onset None Mother Coronary Artery Disease Father Diabetes Father Hypertension Father Lipids Father Glaucoma Father other (syndrom) Son GENERAL ROS Colon polyps: No Colon cancer: No Other cancer: No Radiation / Chemotherapy: No Crohn's disease / Ulcerative colitis: No High cholesterol or triglycerides: Yes Ulcers: No Gallstones: No Hepatitis / jaundice: No Heart Disease: No Lung Disease: No Liver problems: No Thyroid disease: No Kidney stones: No Pancreatitis: No Diabetes: No Arthritis: No Rheumatic fever: No Gastrointestinal bleeding: No Depression or other mental illness: No Other personal illness: No GI SPECIFIC ROS Difficulty swallowing / foods sticking in throat: No Heartburn: No Hoarseness: No Chronic cough: No Regurgitation: No Chest pain: No Filling up quickly at meals: No Loss of appetite: No Nausea: No Vomiting: No Abdominal pain: No Recent change in bowel movements: No Bloody or black, bowel movements: No Constipation: No Diarrhea: No Loss of control of bowel movements: No Night sweats, fever, chills: No Thought or memory problems: No Fluid in abdomen (ascites): No Prominent leg swelling: No Vomiting blood: No Recent change in weight: No PHYSICAL EXAMINATION BP 139/64 Pulse 87 Temp (Src) 97.8 (Temporal) Ht 5' 10 (1.78m) Wt 272 lb 3.2 oz (123.5kg) SpO2 97% BMI 39.06 kg/(m^2). General Appearance: Well appearing, alert, in no acute distress, well-hydrated, well nourished. Eyes: PERRLA, conjunctiva and sclera normal Oropharynx: Lips, tongue, and oral mucosa normal. There is no thrush or oral ulcers. Lungs:breath sounds clear to auscultation bilaterally, no crackles, rhonchi, or wheezes Heart: regular rate and rhythm, no murmurs or gallops. Abdomen: not distended, normal bowel sounds, soft and depressible, no guarding or rebound, no palpable mass, no organomegaly Extremities: no cyanosis or edema Skin: no jaundice, no spider angiomas, no palmar erythema Neuro:alert, oriented x 3, pleasant and in no acute distress Recent Labs: Hemoglobin (g/dL) Date Value 01/18/2022 15.7 Hematocrit (%) Date Value 01/18/2022 47.0 WBC (k/uL) Date Value 01/18/2022 5.56 Glucose (mg/dL) Date Value 06/25/2023 118 07/13/2021 109 Potassium (mmol/L) Date Value 06/25/2023 5.0 07/13/2021 4.8 Sodium (mmol/L) Date Value 06/25/2023 136 07/13/2021 135 Chloride (mmol/L) Date Value 06/25/2023 99 07/13/2021 98 CO2 (mmol/L) Date Value 06/25/2023 23 07/13/2021 26 Creatinine (mg/dL) Date Value 06/25/2023 0.94 07/13/2021 1.06 BUN (mg/dL) Date Value 06/25/2023 10 07/13/2021 13 Anion Gap (mmol/L) Date Value 06/25/2023 14 07/13/2021 11 Calcium (mg/dL) Date Value 07/13/2021 9.6 Calcium, Total (mg/dL) Date Value 06/25/2023 10.1 Albumin (g/dL) Date Value 06/25/2023 4.6 Bilirubin, Total (mg/dL) Date Value 06/25/2023 0.7 Alkaline Phosphatase (U/L) Date Value 06/25/2023 80 AST (U/L) Date Value 06/25/2023 109 (H) ALT (U/L) Date Value 06/25/2023 93 (H) Protein, Total (g/dL) Date Value 06/25/2023 7.7 Computed MELD 3.0 unavailable. Necessary lab results were not found in the last year. Computed MELD-Na unavailable. Necessary lab results were not found in the last year. Imaging/procedure RUQ US 02/11/18 IMPRESSION: Fatty infiltration of the liver, without focal hepatic lesion. Cholelithiasis, without convincing sonographic evidence for acute cholecystitis. Assessment IMPRESSION Mana Ash is a very pleasant 53 year old male with a history of HTN, HLD, KATHY, Obesity Class II who presents with what appears to be MetALD given his daily alcohol use. Drinks several bourbons at night. Candid discussion regarding management of fatty liver with weight loss and alcohol use. Currently on a lipophilic statin. Will proceed with fibroscan for staging/grading of liver; discussed results in relation to BMI >30 and centripetal adiposity -Discussed liver disease and it's progression -Discussed personal risk factors for the development of liver disease/cirrhosis -Discussed sx of worsening liver disease -Discussed need to avoid alcohol intake -Discussed maintaining a healthy, Mediterranean diet PLAN Serological evaluation: A1AT, KITTY, AMA, Ceruloplasmin, Smooth Muscle, Iron/TIBC, Ferritin, Hep Remote, HFE Fibroscan for noninvasive fibrosis/steatosis assessment Check immunity to HAV/HBV HFP, INR, CBC, BMP Return to office in 6 months. Doris Guadalupe APRN.OLIVIA During this patient visit I have spent approximately 30 minutes in counseling regarding weight loss, exercise, cardiovascular risk reduction, treatment options, medications, test results, and coordinating care and coordinating care. Doris Guadalupe APRN.OLIVIA August 20, 2023 8:03 AM documented in this encounter [facility] 07-09-2023 Miscellaneous Notes The following approved medication requests have been transmitted electronically. Requested Prescriptions Signed Prescriptions Disp Refills sildenafil (VIAGRA) 100 mg tablet 30 tablet 1 Sig: Take one tab by mouth daily if needed. Authorizing Provider: BABATUNDE KERR MD Last refill 03/22/19 Qty: 30 with 1 refill [facility] 06/25/23 NOV 12/25/23 Lior Roth LPN documented in this encounter [facility] 05-16-2023 Miscellaneous Notes Left a detailed message on a secured voice mail for pt to call the office to schedule his physical. Patient has been identified by name and date of : Yes, Provider / Victor Manuel Date 05/16/23 Time 10:32 am Pharmacy phones for refill(s): Requested Prescriptions Pending Prescriptions Disp Refills colestipol (COLESTID) 1 gram tablet 180 tablet 1 Sig: Take 1 tablet by mouth twice daily. pantoprazole DR (PROTONIX) 40 mg tablet 90 tablet 1 Sig: Take 1 tablet by mouth once daily. Date of last office visit in primary care: 08/30/22 Last 2 Encounter Wt Readings: Date: Wt: 08/30/2022 127.9 kg (282 lb) 01/18/2022 125.6 kg (277 lb) Previous labs/tests for medication: Not applicable Thank you. Tanisha Johnson LPN See above. Tanisha Johnson LPN documented in this encounter [facility] 04-07-2023 Miscellaneous Notes Faxed to [facility]. Darcie Montoya MA Order, CPAP test and office note ready to be faxed to [facility]. DEMAR 08/30/2022 NOV 06/25/23 documented in this encounter [facility] 04-07-2023 Miscellaneous Notes Patient has been identified by name and date of : Yes Requested Prescriptions Pending Prescriptions Disp Refills lisinopril (ZESTRIL) 40 mg tablet 90 tablet 3 Sig: Take 1 tablet by mouth once daily. RX INSTRUCTIONS: Patient aware RX will be sent to pharmacy. No need to notify patient. Patient last office visit: 08/30/22 Patient next office visit: 06/25/23 Narda Reyes MA documented in this encounter [facility] 01-16-2023 Miscellaneous Notes Noted. Malathi from [facility] calls and states that patient is not eligible to get a new CPAP until August of 2023. At that time new prescription and office notes can be faxed to [facility]. Malathi states that she already left a message for patient on voiceokil regarding this. Evelyn Monte RN documented in this encounter [facility] 01-15-2023 Miscellaneous Notes Faxed. Darcie Montoya MA CPAP study and script ready to be faxed to [facility]. documented in this encounter [facility] 11-06-2022 Miscellaneous Notes Patient has been identified by name and date of : Yes, Provider Dr. Kerr Date 11/06/22 Time 7:51 am Patient phones for refill(s): Requested Prescriptions Pending Prescriptions Disp Refills pantoprazole DR (PROTONIX) 40 mg tablet 90 tablet 1 Sig: Take 1 tablet by mouth once daily. Date of last office visit in primary care: 08/30/22 next apt 03/14/23 Last 2 Encounter Wt Readings: Date: Wt: 08/30/2022 127.9 kg (282 lb) 01/18/2022 125.6 kg (277 lb) Previous labs/tests for medication: Not applicable Thank you. Tanisha Johnson LPN documented in this encounter [facility] 11-06-2022 Miscellaneous Notes Patient has been identified by name and date of : Yes, Provider Dr. Kerr Date 11/06/22 Time 7:50 am Patient phones for refill(s): Requested Prescriptions Pending Prescriptions Disp Refills colestipol (COLESTID) 1 gram tablet 180 tablet 1 Sig: Take 1 tablet by mouth twice daily. Date of last office visit in primary care: 08/30/22 next apt 03/14/23 Last 2 Encounter Wt Readings: Date: Wt: 08/30/2022 127.9 kg (282 lb) 01/18/2022 125.6 kg (277 lb) Previous labs/tests for medication: Not applicable Thank you. Tanisha Johnson LPN documented in this encounter [facility] 10-18-2022 Miscellaneous Notes Last office visit: 08/30/22 F/u scheduled: 03/14/23 Ashley Barber Ma documented in this encounter [facility] 09-02-2022 Miscellaneous Notes The following approved medication requests have been transmitted electronically. Requested Prescriptions Signed Prescriptions Disp Refills atorvastatin (LIPITOR) 20 mg tablet 90 tablet 1 Sig: Take 1 tablet by mouth daily at bedtime. For cholesterol. Authorizing Provider: BABATUNDE KERR MD Patient Allie returned johana and went over results, notes from Dr Kerr with understanding. Patient uses [facility] for his mail away pharmacy. said will have to call to schedule physical appt, he works extra hours and she did not have his schedule. Left message for patient to contact office. Darcie Montoya MA Let patient know blood sugar test was ok. Lipid panel showed trigs elevated at 200 (goal<150 but were over 400), HDL very good at 55 and LDL very good at 53. His electrolytes and kidney functions were pok. His liver functions are still elevated and would like to increase the lipitor to 20 mg a day to help lower the Trigs more and hopefully start to reduce the inflammation in the liver. He will need lipid panel and LFT's in 3 months. Needs complete PE scheduled for 6 months. documented in this encounter [facility] 04-26-2022 Miscellaneous Notes Patient has been identified by name and date of : Yes Pending Prescriptions Disp Refills ATORVASTATIN 10 MG TABLET 30 tablet 1 Sig: Take 1 tablet by mouth daily at bedtime. For cholesterol. ANAIS: No RX INSTRUCTIONS: Patient aware RX will be sent to pharmacy. No need to notify patient. Darcie Montoya MA Demar: 12/2021 Nov: 06/2022 Last refill: Last refill: 01/2022 documented in this encounter [facility] 02-26-2022 Miscellaneous Notes Patient phones requesting refills as follows: Pending Prescriptions Disp Refills ATORVASTATIN 10 MG TABLET 30 tablet 1 Sig: Take 1 tablet by mouth daily at bedtime. For cholesterol. ANAIS: No DEMAR 01/18/22 NOV 07/19/22 Please review and advise. Regina Wolff LPN documented in this encounter [facility] 01-28-2022 Miscellaneous Notes notified and voiced understanding. Darcie Montoya MA Let patient know cortisol level was ok and repeat electrolyte panel showed Sodium and Potassium were ok. documented in this encounter [facility] 01-22-2022 Miscellaneous Notes patient and spouse notified of information. They are agreeable to starting the medication. They can get a 30 day supply with 1 refill from the local pharmacy [facility]. Please send rx. Patient will be in for further lab work between now and next week to have that completed. Left message for pt to contact office. Lior Roth LPN Let patient know thyroid labs, UA, PSA, B12, CBC and A1c were all ok. Blood sugar control continues juli better than a year ago. Lipid panel shows Trigs elevated at 218 (goal<150 and were 464), HDL good at 59 and LDL good at 117. CMP shows one of the liver function tests is lower and closer to normal and the other is elevated again. This could be from the Trigs still being elevated but also if still drinking a few glasses of [place] a week this can also contribute and would advise cutting back along with working on weight loss. If ok I would like to start a low dose of Atorvastatin 10 mg a day to also help. His sodium was also low and his potassium was slightly elevated. I want to repeat these along with a AM cortisol level and 24 hrs urine cortisol level. Orders placed. documented in this encounter [facility] 01-18-2022 History of Present illness Narrative Chief Complaint Patient presents with: Physical: 6 months HPI Mana Ash is a 51 year old male who presents here today for Annual Exam. Patient with Hx of HTN, Hyperlipidemia, elevated A1c, GERD, Depression, KATHY on CPAP, Obesity, low B12, insomnia, fatty liver, ED as well as those reviewed and addressed below and in ROS. No concers or issues taking medication as directed. Wearing CPAP nightly with benefit. Past medical history, appointments, medications, allergies reviewed. 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 Post gall bladder removal Elevated hemoglobin A1c 07/17/2021 Elevated LFTs 08/18/2019 Erectile dysfunction 03/20/2019 Essential hypertension 08/29/2009 Fatty liver 08/18/2019 GERD without esophagitis 05/08/2007 Hemorrhage of gastrointestinal tract, unspecified History of COVID-19 07/17/202109/2020 Hyperlipidemia, mixed 08/29/2009 Internal hemorrhoids without mention of complication 06/10/2007 Low serum vitamin B12 07/17/2021 Major depressive disorder with single episode, in full remission (HCC) 08/12/2005 Obesity, Class II, BMI 35-39.9 09/05/2020 KATHY (obstructive sleep apnea) 09/09/2018 Psychophysiological insomnia 07/17/2021 Well adult exam 09/05/2020 Last done: 09/05/2020 Previous Surgical History PAST SURGICAL HISTORY Procedure Laterality Date COLONOSCOPY FLX DX W/COLLJ SPEC WHEN PFRMD 09/27/2019 Colonoscopy ESOPHAGOGASTRODUODENOSCOPY TRANSORAL DIAGNOSTIC 06/10/2007 EGD ESOPHAGOGASTRODUODENOSCOPY TRANSORAL DIAGNOSTIC 09/27/2019 EGD ESOPHAGOGASTRODUODENOSCOPY TRANSORAL DIAGNOSTIC 12/06/2019 EGD LAPAROSCOPY SURG CHOLECYSTECTOMY 02/24/2018 Cholecystectomy, lap Family History FAMILY HISTORY Problem Relation Age of Onset None Mother Coronary Artery Disease Father Diabetes Father Hypertension Father Lipids Father Glaucoma Father other (syndrom) Son Patient Allergies ALLERGIES Allergen Reactions Seasonal Allergies Other: See Comments Itchy, watery eyes, SOB, congestion Current Medications Current Outpatient Medications on File Prior to Visit Medication Sig lisinopril (ZESTRIL, PRINIVIL) 40 mg tablet Take 1 tablet by mouth once daily. pantoprazole DR (PROTONIX) 40 mg tablet Take 1 tablet by mouth once daily. colestipol (COLESTID) 1 gram tablet Take 1 tablet by mouth twice daily. sildenafil (VIAGRA) 100 mg tablet Take one tab by mouth daily if needed. COMPOUNDED PRESCRIPTION CPAP DEVICE AND SUPPLIES: CPAP 7 cmH2O with humidification. No current facility-administered medications on file prior to visit. Social History Social History Tobacco Use Smoking status: Never Smoker Smokeless tobacco: Current User Types: Chew Tobacco comment: 1 can per week Vaping Use Vaping Use: Never used Substance Use Topics Alcohol use: Yes Comment: 3-4 glasses bourbon per week Drug use: No Review of Symptoms REVIEW OF SYSTEMS GENERAL: No weight loss, malaise or fevers HEENT: Negative for frequent or significant headaches, No changes in hearing or vision, no nose bleeds or other nasal problems NECK: Negative for lumps, goiter, pain and significant neck swelling RESPIRATORY: Negative for cough, hemoptysis, wheezing, COPD, dyspnea or shortness of breath CARDIOVASCULAR: Negative for chest pain, leg swelling, hypertension, CHF or palpitations GI: No nausea, vomiting, or diarrhea, No heartburn or reflux symptoms and no blood : No history of dysuria,blood MUSCULOSKELETAL: Negative for joint pain or swelling, back pain or muscle pain SKIN: Negative for lesions, rash, and itching PSYCH: Negative for sleep disturbance, mood disorder and recent psychosocial stressors HEMATOLOGY/LYMPHOLOGY: Negative for prolonged bleeding, bruising easily or swollen nodes ENDOCRINE: Negative for cold or heat intolerance, polyuria, polydipsia and goiter NEURO: No history of headaches, syncope, paralysis, seizures or tremors EXAM: BP 126/84 Pulse 60 Resp 14 Ht 5' 9 (1.753 m) Wt 277 lb (125.6 kg) BMI 40.91 kg/m Last 4 Encounter Wt Readings: Date: Wt: 01/18/2022 277 lb (125.6 kg) 07/17/2021 276 lb (125.2 kg) 09/05/2020 273 lb (123.8 kg) 02/16/2020 262 lb (118.8 kg) General Appearance: Well appearing, alert, in no acute distress, well-hydrated, well nourished. and Morbidly obese. Skin: Skin color, texture, turgor normal, no suspicious rashes or lesions. Head: Normocephalic, no masses, lesions, tenderness or abnormalities. Eyes: Anicteric sclera. Pupils are equally round and reactive to light. Extraocular movements are intact. . Ears: External ears, TM's normal, canals clear. Neck: Supple, no adenopathy; thyroid symmetric, normal size, no bruits. Lungs: Lungs clear to auscultation. No wheezing, rhonchi, rales.. Heart: RRR without murmur, gallop, or rubs. No ectopy. Abdomen: Normal abdominal exam, Abdomen soft, non-tender. Bowel sounds normal. No masses, organomegaly. Extremities: No deformities, edema, skin discoloration. Musculoskeletal: Spine range of motion normal. Muscular strength intact, No joint swelling, deformity, or tenderness. Peripheral Pulses: Normal. Neurologic: Gait normal. Reflexes normal and symmetric. Sensation to light touch and nc 2-12 intact.. Genitalia: Normal, Penis normal. No urethral discharge. Scrotum normal to palpation. No hernia.. Rectal: Normal exam. Health Maintenance List HEPATITIS C SCREENING Never done HIV SCREENING Never done BP CONTROLLED (<130/80) Never done SHINGRIX VACCINE(1 of 2) Never done COVID-19 VACCINE(3 - Booster for Moderna series) due on 07/26/2021 INFLUENZA(Season Ended) due on 05/30/2022 ANNUAL PCP TEAM CHRONIC DISEASE VISIT due on 07/17/2022 DIABETES SCREEN due on 07/13/2024 LIPID SCREEN due on 07/13/2026 DTAP,TDAP,TD(3 - Td or Tdap) due on 08/18/2029 COLORECTAL CANCER SCREENING due on 09/27/2029 MENINGOCOCCAL CONJUGATE Aged Out Data reviewed A/P ASSESSMENT/PLAN: 1. Well adult exam - ICD9: V70.0, ICD10: Z00.00 (primary diagnosis) - Counseled on healthy diet and regular exercise - Discussed need for and benefit of weight loss. BMI 40.91 kg/(m^2) - Follow up for annual exam in one year - Discussed COVID boosters 2. Essential hypertension - ICD9: 401.9, ICD10: I10 - good control - Continue current medication(s) - Recommended regular aerobic exercise. - Recommend home blood pressure monitoring, to bring results in on next visit - Goal of BP <130/80 3. Hyperlipidemia, mixed - ICD9: 272.2, ICD10: E78.2 - to be determined upon return of lab results - Encouraged following a low fat, low cholesterol diet. - Discussed the benefits of regular aerobic exercise and weight loss. - Encouraged following a low carbohydrate, healthy oil intake diet. - Continue current therapy. 4. Elevated hemoglobin A1c - ICD9: 790.29, ICD10: R73.09 - Await labs. Patient to continue to work on life style changes. 5. GERD without esophagitis - ICD9: 530.81, ICD10: K21.9 - Continue treatment with Protonix 40 mg QD 6. Major depressive disorder with single episode, in full remission (HCC) - ICD9: 296.26, ICD10: F32.5 - No recurrence off meds. 7. KATHY (obstructive sleep apnea) - ICD9: 327.23, ICD10: G47.33 - Cont use of CPAP 8. Obesity, Class II, BMI 35-39.9 - ICD9: 278.00, ICD10: E66.9 Stable - Behavioral intervention 9. Low serum vitamin B12 - ICD9: 266.2, ICD10: E53.8 - Await labs 10. Psychophysiological insomnia - ICD9: 307.42, ICD10: F51.04 - Stable Pending Prescriptions Disp Refills COLESTIPOL 1 GRAM TABLET 60 tablet 5 Sig: Take 1 tablet by mouth twice daily. ANAIS: No PANTOPRAZOLE 40 MG TABLET,DELAYED RELEASE 90 tablet 1 Sig: Take 1 tablet by mouth once daily. ANAIS: No LISINOPRIL 40 MG TABLET 90 tablet 1 Sig: Take 1 tablet by mouth once daily. ANAIS: No F/u 6 months routine Babatunde Kerr MD documented in this encounter [facility] 01-08-2022 Miscellaneous Notes The following approved medication requests have been transmitted electronically. Signed Prescriptions Disp Refills lisinopril (ZESTRIL, PRINIVIL) 40 mg tablet 90 tablet 1 Sig: Take 1 tablet by mouth once daily. ANAIS: No Authorizing Provider: BABATUNDE KERR pantoprazole DR (PROTONIX) 40 mg tablet 90 tablet 1 Sig: Take 1 tablet by mouth once daily. ANAIS: No Authorizing Provider: BABATUNDE KERR MD [facility] calling for a refill for pt. DEMAR: 07/17/21 NOV: 01/18/22 Last Refill: 07/17/21 #90 1 refill Regina Vann LPN documented in this encounter [facility] Evaluation note Diagnosis Ulcer of esophagus without bleeding [facility] Diagnosis Well adult exam- Primary Routine general medical examination at a health care facility Essential hypertension Unspecified essential hypertension Hyperlipidemia, mixed Mixed hyperlipidemia Elevated hemoglobin A1c Other abnormal blood chemistry GERD without esophagitis Esophageal reflux Major depressive disorder with single episode, in full remission (HCC) KATHY (obstructive sleep apnea) Obstructive sleep apnea (adult) (pediatric) Obesity, Class II, BMI 35-39.9 Obesity, unspecified Low serum vitamin B12 Psychophysiological insomnia Persistent disorder of initiating or maintaining sleep [facility] Diagnosis Hyponatremia- Primary Hyposmolality and/or hyponatremia Hyperkalemia Hyperpotassemia [facility] Diagnosis Hyponatremia Hyposmolality and/or hyponatremia Hyperkalemia Hyperpotassemia [facility] Diagnosis Hyperlipidemia, mixed- Primary Mixed hyperlipidemia Hyponatremia Hyposmolality and/or hyponatremia Hyperkalemia Hyperpotassemia Elevated LFTs Other abnormal blood chemistry Fatty liver Other chronic nonalcoholic liver disease [facility] Diagnosis KATHY (obstructive sleep apnea)- Primary Obstructive sleep apnea (adult) (pediatric) [facility] Diagnosis KATHY (obstructive sleep apnea) Obstructive sleep apnea (adult) (pediatric) [facility] Diagnosis KATHY (obstructive sleep apnea)- Primary Obstructive sleep apnea (adult) (pediatric) [facility] Diagnosis Fatty liver- Primary Other chronic nonalcoholic liver disease [facility] Diagnosis Fatty liver- Primary Other chronic nonalcoholic liver disease [facility] Diagnosis Hyponatremia Hyposmolality and/or hyponatremia Hyperkalemia Hyperpotassemia [facility] Diagnosis Erectile dysfunction, unspecified erectile dysfunction type GERD without esophagitis Esophageal reflux MUNIZ (nonalcoholic steatohepatitis) Other chronic nonalcoholic liver disease Essential hypertension Unspecified essential hypertension [facility] Diagnosis Erectile dysfunction, unspecified erectile dysfunction type GERD without esophagitis Esophageal reflux MUNIZ (nonalcoholic steatohepatitis) Other chronic nonalcoholic liver disease Essential hypertension Unspecified essential hypertension [facility] Diagnosis GERD without esophagitis Esophageal reflux [facility] Diagnosis Myopia, bilateral- Primary Myopia Regular astigmatism of left eye Regular astigmatism Presbyopia Vitreous floaters of both eyes Round retinal hole, right [facility] Diagnosis Well adult exam- Primary Routine general medical examination at a health care facility MUNIZ (nonalcoholic steatohepatitis) Other chronic nonalcoholic liver disease Essential hypertension Unspecified essential hypertension Hyperlipidemia, mixed Mixed hyperlipidemia Elevated hemoglobin A1c Other abnormal blood chemistry GERD without esophagitis Esophageal reflux Major depressive disorder with single episode, in full remission (HCC) Low serum vitamin B12 Obesity, Class II, BMI 35-39.9 Obesity, unspecified KATHY (obstructive sleep apnea) Obstructive sleep apnea (adult) (pediatric) Psychophysiological insomnia Persistent disorder of initiating or maintaining sleep Screening for prostate cancer Special screening for malignant neoplasm of prostate Medication management Encounter for long-term (current) use of other medications documented in this encounter [facility] note* Diagnosis MUNIZ (nonalcoholic steatohepatitis)- Primary Other chronic nonalcoholic liver disease documented in this encounter [facility] note* Diagnosis Erectile dysfunction, unspecified erectile dysfunction type documented in this encounter [facility] note* Diagnosis KATHY (obstructive sleep apnea)- Primary Obstructive sleep apnea (adult) (pediatric) documented in this encounter [facility] note* Diagnosis Essential hypertension- Primary Unspecified essential hypertension Hyperlipidemia, mixed Mixed hyperlipidemia KATHY (obstructive sleep apnea) Obstructive sleep apnea (adult) (pediatric) MUNIZ (nonalcoholic steatohepatitis) Other chronic nonalcoholic liver disease Elevated hemoglobin A1c Other abnormal blood chemistry Low serum vitamin B12 Major depressive disorder with single episode, in full remission (HCC) Class 3 severe obesity due to excess calories with serious comorbidity and body mass index (BMI) of 40.0 to 44.9 in adult (HCC) Nicotine dependence, chewing tobacco, uncomplicated documented in this encounter [facility] note* Diagnosis Fatty liver- Primary Other chronic nonalcoholic liver disease documented in this encounter [facility] for referral (narrative)* Diagnostic Procedure Only (Routine) - Authorized Specialty Diagnoses / Procedures Referred By Joshua antoine Referred To Contact US IMAGING Diagnoses Fatty liver Procedures US ABD SPLEEN US ABDOMINAL REAL TIME W/IMAGE LIMITED Doris Guadalupe APRN.CNP [address] [id number] [facility] [place] [address] Referral ID Status Reason Start Date Expiration Date Visits Requested Visits Authorized [id number] Authorized Auto-Generat ed Referral 3 09/18/2024 1 1 * Diagnostic Procedure Only (Routine) - Authorized Specialty Diagnoses / Procedures Referred By Joshua antoine Referred To Contact US IMAGING Diagnoses Fatty liver Procedures US ABD RIGHT UPPER QUADRANT US ABDOMINAL REAL TIME W/IMAGE LIMITED Doris Guadalupe APRN.CNP [address] [phone] [place] [address] Referral ID Status Reason Start Date Expiration Date Visits Requested Visits Authorized [id number] Authorized Auto-Generat ed Referral 3 09/18/2024 1 1 * Outpatient Procedure (Routine) - New Request Specialty Diagnoses / Procedures Referred By Contact Referred To Contact [facility] Diagnoses Fatty liver Procedures DDI VIBRATION CONTROLLED TRANSIENT ELASTOGRAPHY (VCTE) LIVER ELASTOGRAPHY W/O IMAG W/I&R Doris Guadalupe APRN.COURTROOM DEPUTY OR CALENDAR CLERK [address] [phone] Doris Guadalupe APRN.COURTROOM DEPUTY OR CALENDAR CLERK [address] [place] [id number] Referral ID Status Reason Start Date Expiration Date Visits Requested Visits Authorized [id number] New Request Auto-Generat ed Referral 3 08/20/2024 1 1 [facility] Outpatient Procedure (Routine) - New Request Specialty Diagnoses / Procedures Referred By Contact Referred To Contact [facility] Diagnoses Fatty liver Procedures DDI VIBRATION CONTROLLED TRANSIENT ELASTOGRAPHY (VCTE) LIVER ELASTOGRAPHY W/O IMAG W/I&R Doris Guadalupe, PERNELL.COURTROOM DEPUTY OR CALENDAR CLERK [address] [facility] [place] [phone] Doris Guadalupe APRN.COURTROOM DEPUTY OR CALENDAR CLERK [address] [phone] Referral ID Status Reason Start Date Expiration Date Visits Requested Visits Authorized [id number] New Request Auto-Genera rubi Referral Patient Cleared - Admin/Chair man/Directo r advise to proceed or did not respond 3 08/20/2024 1 1 [facility] Summary Purpose Family History No Family History Records FoundNo Family History Records FoundNo Family History Records Found Advance Directives No Advanced Directives Records FoundDocuments on File Type Date Recorded Patient 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 60 MINUTES Babatunde Kerr MD [address] [place] [address] Referral ID Status Reason Start Date Expiration Date Visits Requested Visits Authorized [id number] Authorized PCP Requested Referral 10/27/2024 10/27/2025 1 1 Additional Source Comments (unrecognized sect ion and content) No Status Records FoundNo Status Records FoundNo Status Records Found INFORMATION SOURCE (unrecogn ized section and content) DATE CREATED AUTHOR 03/18/2018 [facility] DATE CREATED AUTHOR AUTHOR'S ORGANIZ ATION 09/16/2018 [facility] DATE CREATED AUTHOR AUTHOR'S ORGANIZ ATION 07/01/2025 [facility] Source Comments (unrecognize d section and content) In the event this informatio n is protected by the Federal Confidentiality of Alcohol and Drug Abuse Patient Records regulations: The Federal rules restrict any use of the information to criminally investigate or prosecute any alcohol or drug abuse patient.[facility] the event this information is protected by the Federal Confidentiality of Alcohol and Drug Abuse Patient Records regulations: The Federal rules restrict any use of the information to criminally investigate or prosecute any alcohol or drug abuse patient.[facility] the event this information is protected by the Federal Confidentiality of Alcohol and Drug Abuse Patient Records regulations: The Federal rules restrict any use of the information to criminally investigate or prosecute any alcohol or drug abuse patient.[facility] the event this information is protected by the Federal Confidentiality of Alcohol and Drug Abuse Patient Records regulations: The Federal rules restrict any use of the information to criminally investigate or prosecute any alcohol or drug abuse patient.[facility] the event this information is protected by the Federal Confidentiality of Alcohol and Drug Abuse Patient Records regulations: The Federal rules restrict any use of the information to criminally investigate or prosecute any alcohol or drug abuse patient.[facility] HospitalIn the event this information is protected by the Federal Confidentiality of Alcohol and Drug Abuse Patient Records regulations: The Federal rules restrict any use of the information to criminally investigate or prosecute any alcohol or drug abuse patient.[facility] the event this information is protected by the Federal Confidentiality of Alcohol and Drug Abuse Patient Records regulations: The Federal rules restrict any use of the information to criminally investigate or prosecute any alcohol or drug abuse patient.[facility] HospitalIn the event this information is protected by the Federal Confidentiality of Alcohol and Drug Abuse Patient Records regulations: The Federal rules restrict any use of the information to criminally investigate or prosecute any alcohol or drug abuse patient.[facility] Hospital[facility] the event this information is protected by the Federal Confidentiality of Alcohol and Drug Abuse Patient Records regulations: The Federal rules restrict any use of the information to criminally investigate or prosecute any alcohol or drug abuse patient.[facility] HospitalIn the event this information is protected by the Federal Confidentiality of Alcohol and Drug Abuse Patient Records regulations: The Federal rules restrict any use of the information to criminally investigate or prosecute any alcohol or drug abuse patient.[facility] HospitalIn the event this information is protected by the Federal Confidentiality of Alcohol and Drug Abuse Patient Records regulations: The Federal rules restrict any use of the information to criminally investigate or prosecute any alcohol or drug abuse patient.[facility] HospitalIn the event this information is protected by the Federal Confidentiality of Alcohol and Drug Abuse Patient Records regulations: The Federal rules restrict any use of the information to criminally investigate or prosecute any alcohol or drug abuse patient.[facility] HospitalIn the event this information is protected by the Federal Confidentiality of Alcohol and Drug Abuse Patient Records regulations: The Federal rules restrict any use of the information to criminally investigate or prosecute any alcohol or drug abuse patient.[facility] HospitalIn the event this information is protected by the Federal Confidentiality of Alcohol and Drug Abuse Patient Records regulations: The Federal rules restrict any use of the information to criminally investigate or prosecute any alcohol or drug abuse patient.[facility] HospitalIn the event this information is protected by the Federal Confidentiality of Alcohol and Drug Abuse Patient Records regulations: The Federal rules restrict any use of the information to criminally investigate or prosecute any alcohol or drug abuse patient.[facility] HospitalIn the event this information is protected by the Federal Confidentiality of Alcohol and Drug Abuse Patient Records regulations: The Federal rules restrict any use of the information to criminally investigate or prosecute any alcohol or drug abuse patient.[facility] HospitalIn the event this information is protected by the Federal Confidentiality of Alcohol and Drug Abuse Patient Records regulations: The Federal rules restrict any use of the information to criminally investigate or prosecute any alcohol or drug abuse patient.[facility] HospitalIn the event this information is protected by the Federal Confidentiality of Alcohol and Drug Abuse Patient Records regulations: The Federal rules restrict any use of the information to criminally investigate or prosecute any alcohol or drug abuse patient.[facility] HospitalIn the event this information is protected by the Federal Confidentiality of Alcohol and Drug Abuse Patient Records regulations: The Federal rules restrict any use of the information to criminally investigate or prosecute any alcohol or drug abuse patient.[facility] HospitalIn the event this information is protected by the Federal Confidentiality of Alcohol and Drug Abuse Patient Records regulations: The Federal rules restrict any use of the information to criminally investigate or prosecute any alcohol or drug abuse patient.[facility] HospitalIn the event this information is protected by the Federal Confidentiality of Alcohol and Drug Abuse Patient Records regulations: The Federal rules restrict any use of the information to criminally investigate or prosecute any alcohol or drug abuse patient.[facility] HospitalIn the event this information is protected by the Federal Confidentiality of Alcohol and Drug Abuse Patient Records regulations: The Federal rules restrict any use of the information to criminally investigate or prosecute any alcohol or drug abuse patient.[facility] HospitalIn the event this information is protected by the Federal Confidentiality of Alcohol and Drug Abuse Patient Records regulations: The Federal rules restrict any use of the information to criminally investigate or prosecute any alcohol or drug abuse patient.[facility] Hospital[facility] the event this information is protected by the Federal Confidentiality of Alcohol and Drug Abuse Patient Records regulations: The Federal rules restrict any use of the information to criminally investigate or prosecute any alcohol or drug abuse patient.[facility] HospitalIn the event this information is protected by the Federal Confidentiality of Alcohol and Drug Abuse Patient Records regulations: The Federal rules restrict any use of the information to criminally investigate or prosecute any alcohol or drug abuse patient.[facility] HospitalIn the event this information is protected by the Federal Confidentiality of Alcohol and Drug Abuse Patient Records regulations: The Federal rules restrict any use of the information to criminally investigate or prosecute any alcohol or drug abuse patient.[facility] HospitalIn the event this information is protected by the Federal Confidentiality of Alcohol and Drug Abuse Patient Records regulations: The Federal rules restrict any use of the information to criminally investigate or prosecute any alcohol or drug abuse patient.[facility] HospitalIn the event this information is protected by the Federal Confidentiality of Alcohol and Drug Abuse Patient Records regulations: The Federal rules restrict any use of the information to criminally investigate or prosecute any alcohol or drug abuse patient.[facility] HospitalIn the event this information is protected by the Federal Confidentiality of Alcohol and Drug Abuse Patient Records regulations: The Federal rules restrict any use of the information to criminally investigate or prosecute any alcohol or drug abuse patient.[facility] HospitalIn the event this information is protected by the Federal Confidentiality of Alcohol and Drug Abuse Patient Records regulations: The Federal rules restrict any use of the information to criminally investigate or prosecute any alcohol or drug abuse patient.[facility] HospitalIn the event this information is protected by the Federal Confidentiality of Alcohol and Drug Abuse Patient Records regulations: The Federal rules restrict any use of the information to criminally investigate or prosecute any alcohol or drug abuse patient.[facility] HospitalIn the event this information is protected by the Federal Confidentiality of Alcohol and Drug Abuse Patient Records regulations: The Federal rules restrict any use of the information to criminally investigate or prosecute any alcohol or drug abuse patient.[facility] HospitalIn the event this information is protected by the Federal Confidentiality of Alcohol and Drug Abuse Patient Records regulations: The Federal rules restrict any use of the information to criminally investigate or prosecute any alcohol or drug abuse patient.[facility] HospitalIn the event this information is protected by the Federal Confidentiality of Alcohol and Drug Abuse Patient Records regulations: The Federal rules restrict any use of the information to criminally investigate or prosecute any alcohol or drug abuse patient.[facility] HospitalIn the event this information is protected by the Federal Confidentiality of Alcohol and Drug Abuse Patient Records regulations: The Federal rules restrict any use of the information to criminally investigate or prosecute any alcohol or drug abuse patient.[facility] Reason for Visit (unrecogniz ed section and content) Reason Onset Date Comments Refill Request 01/08/2022 Reason Comments Physical 6 months Reason Comments Results Reason Onset Date Comments Refill Request 02/25/2022 Reason Onset Date Comments Refill Request 04/25/2022 Reason Onset Date Comments Refill Request 10/18/2022 Reason Onset Date Comments Refill Request 11/05/2022 Reason Comments CPAP Order Reason Onset Date Comments Refill Request 04/07/2023 Reason Onset Date Comments Refill Request 05/16/2023 Reason Onset Date Comments Refill Request 07/08/2023 Reason Comments New Patient MUNIZ, Elevated LFTs Reason Onset Date Comments Refill Request 08/24/2023 Reason Onset Date Comments Refill Request 01/14/2024 Reason Comments Medication Problem Reason Comments Med Change Request Reason Comments Yearly Exam Contact lens evaluation Reason Comments Physical Reason Onset Date Comments Refill Request 09/22/2024 Reason Comments 6 Month Exam Reason Comments Liver Disease Reason Onset Date Comments Results 12/20/2024 Care Teams (unrecognized sec tion and content) Chart Collector Relationship Specialty Start Date End Date Babatunde Kerr MD [address] [place] [address] PCP - General Family Practice 02/07/18 Chart Collector Relationship Specialty Start Date End Date Babatunde Kerr MD [facility] [place] [address] PCP - General Family Practice 02/07/18 Chart Collector Relationship Specialty Start Date End Date Babatunde Kerr MD [address] [place] [address], [place] [address] PCP - General Family Practice 02/07/18 Chart Collector Relationship Specialty Start Date End Date Babatunde Kerr MD [address] [place] [address], [place] [address] PCP - General Family Practice 02/07/18 Chart Collector Relationship Specialty Start Date End Date Babatunde Kerr MD [address] [place] [address], [place] [address] PCP - General Family Practice 02/07/18 Chart Collector Relationship Specialty Start Date End Date Babatunde Kerr MD [address] [place] [address], [place] [address] PCP - General Family Medicine 02/07/18 Chart Collector Relationship Specialty Start Date End Date Babatunde Kerr MD [address] [place] [address], [place] [address] PCP - General Family Medicine 02/07/18 Chart Collector Relationship Specialty Start Date End Date Babatunde Kerr MD [address] [place] [address], [place] [address] PCP - General Family Medicine 02/07/18 Chart Collector Relationship Specialty Start Date End Date Babatunde Kerr MD [address] [place] [address] PCP - General Family Medicine 02/07/18 Chart Collector Relationship Specialty Start Date End Date Babatunde Kerr MD [address] [place] [address] PCP - General Family Medicine 02/07/18 Chart Collector Relationship Specialty Start Date End Date Babatunde Kerr MD [address] [place] [address] PCP - General Family Medicine 02/07/18 Chart Collector Relationship Specialty Start Date End Date Babatunde Kerr MD [address] [place] [address] PCP - General Family Medicine 02/07/18 Chart Collector Relationship Specialty Start Date End Date Babatunde Kerr MD [address] [place] [address] PCP - General Family Medicine 02/07/18 Chart Collector Relationship Specialty Start Date End Date Babatunde Kerr MD [address] [place] [address] PCP - General Family Medicine 02/07/18 Chart Collector Relationship Specialty Start Date End Date Babatunde Kerr MD [address] [place] [address] PCP - General Family Medicine 02/07/18 Chart Collector Relationship Specialty Start Date End Date Babatunde Kerr MD [address] [place] [address] PCP - General Family Medicine 02/07/18 Chart Collector Relationship Specialty Start Date End Date Babatunde Kerr MD [address] [place] [address] PCP - General Family Medicine 02/07/18 Chart Collector Relationship Specialty Start Date End Date Babatunde Kerr MD [address] [place] [address] PCP - General Family Medicine 02/07/18 Chart Collector Relationship Specialty Start Date End Date Babatunde Kerr MD [address] [place] [address] PCP - General Family Medicine 02/07/18 Chart Collector Relationship Specialty Start Date End Date Babatunde Kerr MD [address] [place] [address] PCP - General Family Medicine 02/07/18 Chart Collector Relationship Specialty Start Date End Date Babatunde Kerr MD [address] [place] [address] PCP - General Family Medicine 02/07/18 Chart Collector Relationship Specialty Start Date End Date Babatunde Kerr MD [address] [place] [address] PCP - General Family Medicine 02/07/18 Chart Collector Relationship Specialty Start Date End Date Babatunde Kerr MD [address] [place] [address] PCP - General Family Medicine 02/07/18 Chart Collector Relationship Specialty Start Date End Date Babatunde Kerr MD [address] [place] [address] PCP - General Family Medicine 02/07/18 Valentina Chatman, PERNELL.COURTROOM DEPUTY OR CALENDAR CLERK [address] [place] [address] Retail Presentation Specialist Family Medicine 09/04/24 Mary Ann Carlos PA-C [address] [place] [address] Retail Presentation Specialist Family Medicine 09/04/24 Chart Collector Relationship Specialty Start Date End Date Babatunde Kerr MD [address] [place] [address] PCP - General Family Medicine 02/07/18 Valentina Chatman, PERNELL.COURTROOM DEPUTY OR CALENDAR CLERK [address] [place] [address] Retail Presentation Specialist Family Medicine 09/04/24 Mary Ann Carlos PA-C [address] [place] [address] Retail Presentation Specialist Family Medicine 09/04/24 Chart Collector Relationship Specialty Start Date End Date Babatunde Kerr MD [address] [place] [address] PCP - General Family Medicine 02/07/18 Valentina Chatman, SAMPLING EXPERT.COURTROOM DEPUTY OR CALENDAR CLERK [address] [place] [address] Retail Presentation Specialist Family Medicine 09/04/24 Mary Ann Carlos PA-C [address] [place] [address] Retail Presentation Specialist Family Medicine 09/04/24 Chart Collector Relationship Specialty Start Date End Date Babatunde Kerr MD [address] [place] [address] PCP - General Family Medicine 02/07/18 Valentina Chatman APRN.COURTROOM DEPUTY OR CALENDAR CLERK [address] [place] [address] [facility] 09/04/24 Mary Ann Carlos PA-C [address] [place] [address] [facility] 09/04/24 Chart Collector Relationship Specialty Start Date End Date Babatunde Kerr MD [address] [place] [address] PCP - General Family Medicine 02/07/18 Valentina Chatman APRN.COURTROOM DEPUTY OR CALENDAR CLERK [address] [place] [address] [facility] 09/04/24 Mary Ann Carlos PA-C [address] [place], [place] [address] [facility] 09/04/24 FOR RECORDS PERTAINING TO PATIENTS WHO ARE OR HAVE BEEN ENROLLED IN A CHEMICAL DEPENDENCY/SUBSTANCEABUSE PROGRAM, SOME INFORMATION MAY BE OMITTED. This clinical summary was aggregated from multiple sources. Caution should be exercised in using it in the provision of clinical care. This summary normalizes information from multiple sources, and as a consequence, information in this document may materially change the coding, format and clinical context of patient data. In addition, data may be omitted in some cases. CLINICAL DECISIONS SHOULD BE BASED ON THE PRIMARY CLINICAL RECORDS. [employer] provides no warranty or guarantee of the accuracy or completeness of information in this document.
[2025-08-21 17:20] LABS: Magnesium 2.3 mg/dL (1.5-2.2)
[2025-08-21 18:17] LABS: Anion Gap 14 (5-15); BUN 22 mg/dL (4-19); BUN/Creat Ratio 9.2 RATIO (10-20); Calcium,Total 9.2 mg/dL (7.6-11.0); Carbon Dioxide 24.1 mmol/L (21.0-32.0); Chloride 83 mmol/L (98-108); Estimated Creatinine Clearance 44.70 ml/min (50-250); Glucose 109 mg/dL (70-99); Potassium 3.9 mmol/L (3.3-5.1)
--- NOTE | 2025-08-21 19:19 | HP.PCM.HOS_ITS ---
HPI - General General Date of Admission: 08/21/25 Date of Service: 08/21/25 Chief Complaint: Nausea/vomiting with dehydration and fatigue HPI Narrative MANA ABBASI, is a 55 M who presented to [facility] ED on 08/21/2025 with nausea/vomiting with dehydration and fatigue. Medical history significant for hypertension, hyperlipidemia, class II obesity, and GERD. Patient lives at home with his , has good functional status at baseline. He was in [place] from 08/11-08/14 for a hunting trip. On the drive home Friday he developed nausea and then had frequent episodes of vomiting during the drive. He also had some episodes of diarrhea at that time. He was able to make it home but has felt dehydrated and fatigued since then. He has been trying to increase intake of fluids but his p.o. intake has generally been poor. This morning his noticed that he appeared to be somewhat confused and was asking her questions that did not make sense. She took him to urgent care who then advised them to come to the ED. In the ED he was normotensive, had borderline sinus tachycardia, was otherwise afebrile and stable on room air at rest. Labs notable for sodium 119, chloride 81, creatinine 2.49, BUN 22, AST 113, ALT 143. He was given a 500 cc bolus of normal saline and repeat sodium was 121. Hospitalist was then contacted for admission. I saw the patient at bedside in the ED, was present. Patient was mildly fatigued and flushed appearing but otherwise sitting back comfortably in bed and in no acute distress. He was conversing normally for me and did not appear confused or mentally slowed. Importantly, patient was started on hydrochlorothiazide about 1 month ago for his high blood pressure. He had only been on lisinopril to that point. Patient denies any nausea or vomiting over the past several days. No other acute concerns currently. Will be admitted for further management. [facility] Medical History Hypercholesterolemia Hypertension Home Medications ?Medication ?Instructions ?Recorded ?Last Taken ?Type atorvastatin 20 mg tablet (Lipitor) 20 mg PO DAILY cho lesterol 08/21/25 08/21/25 History colestipol 1 gram tablet (Colestid) 1 g PO DAILY louise sterol 08/21/25 08/21/25 History fenofibrate 54 mg tablet 54 mg PO DAILY cholesterol 1 10/21/24 08/21/25 History hydrochlorothiazide 25 mg tablet 25 mg PO DAILY BP 08/21/25 History lisinopril 40 mg tablet 40 mg PO DAILY BP 08/21/25 1 10/21/24 History pantoprazole 40 mg tablet,delayed 40 mg PO DAILY reflu x 08/21/25 08/21/25 History release Allergy/AdvReac Type Severity Reaction Status Date / Time grass pollen Allergy Mild Itching Verified 08/21/25 21:49 Surgical History Hx of cholecystectomy Social History Smoking Status: Never smoker ROS Constitutional Constitutional: Reports fatigue; Denies chills, fever(s) or weakness Cardiovascular Cardiovascular: Denies chest pain Respiratory/Chest Respiratory/Chest: Denies shortness of breath at rest Gastrointestinal Gastrointestinal: Denies abdominal pain, constipation, diarrhea, nausea or vomiting Genitourinary Genitourinary: Denies dysuria Musculoskeletal Musculoskeletal: Denies arthralgias or myalgias Neurologic Neurologic: Denies dizziness, focal weakness, headache(s), numbness or tingling Vital Signs Vital Signs Vital Signs: 08/21/25 15:11 08/21/25 15:14 08/21/25 17:13 Temperature 98.4 F 98.4 F 98.4 F Temperature Source Temporal Oral Oral Pulse Rate 98 98 70 Respiratory Rate 18 18 19 H Respiratory Effort Respiratory Pattern Blood Pressure 135/83 H 135/83 H 148/71 H Blood Pressure Mean 100 100 96 Pulse Ox 97 97 96 Oxygen Delivery Method Room Air Room Air Room Air 08/21/25 17:13 08/21/25 18:00 08/21/25 19:00 Temperature 98.4 F Temperature Source Oral Pulse Rate 72 83 Respiratory Rate 18 18 Respiratory Effort Normal Respiratory Pattern Normal Blood Pressure 142/75 H 143/76 H Blood Pressure Mean 97 98 Pulse Ox 97 97 Oxygen Delivery Method Room Air Room Air Weight Weight: 117.5 kg Body Mass Index (BMI) 37.1 Physical Exam Const alert, oriented x3 and no apparent distress Constitutional Narrative: Pleasant middle-age male, class II obesity, mildly fatigued and flushed appearing, otherwise sitting back comfortably in bed, conversing normally, in no acute distress. General Appearance: cooperative and comfortable HEENT normocephalic, head/scalp atraumatic, hearing grossly normal bilaterally, nasal mucous membranes and turbinates normal and moist oral mucous membranes Eyes PERRL, EOMs intact bilaterally and conjunctivae normal Neck full ROM Chest inspection of chest normal Resp normal respiratory effort, normal air movement, no use of accessory muscles and clear to auscultation bilaterally Cardio regular rate, regular rhythm, no murmurs and peripheral pulses 2+ throughout GI normal to inspection, nondistended, normoactive bowel sounds, soft to palpation, non-tender and non-distended Back/Spine normal ROM Extremity normal to inspection, full ROM and no pedal edema Skin no rashes or lesions noted Neuro oriented x3 Speech: speech normal Psych mental status grossly normal Results Lab / Micro Data 08/21/25 15:57 08/21/25 17:55 Labs: Laboratory Results - last 24 hr 08/21/25 15:57: WBC 9.5, RBC 4.42 L, Hgb 15.1, Hct 40.5, MCV 91.6, MCH 34.2 H, M CHC 37.3 H, RDW Std Deviation 39.9, RDW Coeff of Jaclyn 12.0, Plt Count 226, MPV 8.6, Immature Gran % (Auto) 0.600, Neut % (Auto) 73.7 H, Lymph % (Auto) 14.3 L, [place] % (Auto) 10.6 H, Eos % (Auto) 0.4, Baso % (Auto) 0.4, Absolute Neuts (auto) 7.0, Absolute Lymphs (auto) 1.35, Nucleated RBC % 0, Sodium 119 L*, Potassium 4.0, Chloride 81 L, Carbon Dioxide 22.2, Anion Gap 16 H, BUN 22 H, Creatinine 2.49 H, Est GFR (MDRD) Non-Af 30 L, BUN/Creatinine Ratio 9.0 L, Glucose 121 H, Calcium 9.6, Magnesium 2.3 H, Total Bilirubin 1.11, AST 113 H, ALT 143 H, Alkaline Phosphatase 68, Total Protein 7.9, Albumin 4.7, Globulin 3.2, Albumin/Globulin Ratio 1.5, Lipase 62 08/21/25 17:55: Sodium 121 L, Potassium 3.9, Chloride 83 L, Carbon Dioxide 24.1, Anion Gap 14, BUN 22 H, Creatinine 2.37 H, Estim Creat Clear Calc 44.70 L, Est GFR (MDRD) Non-Af 31 L, BUN/Creatinine Ratio 9.2 L, Glucose 109 H, Calcium 9.2 Imaging Radiology Impression Abdomen/Pelvis CT 08/21/25 16:50 IMPRESSION: No acute abnormality Reading Location: [facility] Assessment & Plan Assessment/Plan (1) Acute hyponatremia: (2) MAYA (acute kidney injury): PLAN: Plan Patient is a 55-year-old male who presented to [facility] ED on 08/21/2025 with nausea/vomiting with dehydration and fatigue. 1. Acute hyponatremia ? Admit under inpatient status to PCU. Sodium 119, chloride 81 in the ED. Given 500 cc normal saline bolus with repeat sodium 121. Was started on hydrochlorothiazide about 1 month ago, presume hyponatremia is secondary to hydrochlorothiazide and GI losses. Urine sodium, urine osmolality and serum osmolality ordered. Given another 500 cc normal saline bolus in the ED. Despite 1 L of fluids, patient hypotensive to the 80s over 50s as below. Will give an LR 500 cc bolus and then run LR 100 cc/hr for another 5 hours overnight. Follow-up sodium level at midnight and again at 6 AM. 1800 mL fluid restriction ordered. 2. MAYA ? Creatinine 2.49 on admit, baseline unknown. No reported history of chronic kidney disease. Presume prerenal due to dehydration from GI losses. Urine sodium and creatinine ordered to calculate FeNa. Given IV fluids as above, follow-up a.m. BMP and monitor urine output. 3. Nausea/vomiting/diarrhea ? Patient had acute onset nausea/vomiting/diarrhea on Tuesday 08/14 while driving home from hunting trip. The diarrhea improved within a day. He had some nausea with p.o. intake for several days that has started to improve over the past few days. Seems most consistent with a viral gastroenteritis. CT abdomen pelvis without contrast on admit was unremarkable. Patient without diarrhea at this point, no need to collect stool sample. Supportive care. 4. Hypotension in setting of essential hypertension ? Hypotensive to the 80s over 50s in the ED despite 1 L of fluid resuscitation as above. Suspect due to home BP medications in setting of dehydration. Giving further IV fluids as above. Hold home lisinopril. Home hydrochlorothiazide will need to be permanently discontinued due to side effect of hyponatremia as above. 5. Elevated LFTs ? AST 113, ALT [address] abdomen pelvis unremarkable as above. May be secondary to recent acute viral infection versus due to some degree of fatty liver disease in setting of class II obesity as below. Follow-up a.m. labs. 6. Hyperlipidemia ? Continue home atorvastatin and fenofibrate. 7. GERD ? Continue home PPI. 8. Class II obesity ? BMI 38 on admit. Complicates hospital course and care. Encouraged lifestyle modifications. DVT prophylaxis: Heparin subcu CODE STATUS: Full code, verified Expected disposition: Home, 2 to 3 days Total clinical time spent by myself addressing the patient's medical issues, reviewing all the data, and collaborating with patient's care team: 77 minutes. Charges/Coding Visit Charges Inpatient E&M: 89303 Init Hosp L3
--- OUTSIDE RECORDS SUMMARY | 2025-08-21 19:39 | XMS RPT_ITS | CCD ---
Author Organization [facility] Care Team Providers Care Consumer Affairs Director Name Role Phone PROVIDER, UNKNOWN Unavailable Unavailable Babatunde Kerr MD Primary Care Provider Babatunde Kerr MD Primary Care Provider Babatunde Kerr MD Primary Care Provider Valentina Chatman APRN.CNP Unavailable Mary Ann Carlos PA-C Unavailable BABATUNDE KERR Primary Care Unavailable DORIS GUADALUPE [...] adverse reactions (disorder) 8 Other: See Comments [facility] Other [place] [facility] Medications Current Medications Medication Drug Class(es) [...] (BMI) of 40.0 to 44.9 in adult ([facility])] Onset: 0 12-20-2024 Chronic Other nutritional; endocrine; and metabolic disorders (1 source) Body mass index (BMI) 40.0-44.9, adult; Translations: [Class 3 severe obesity with body mass index (BMI) of 40.0 to 44.9 in adult ([facility])] Onset: 5 Chronic Other skin disorders (1 [...] (20 sources) Patient encounter status; Translations: [Other residential (current) drug therapy] Onset: 03-20-2019 07-12-2021 Episodic Other aftercare (1 source) 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 project 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; Translations: [Medication management] Onset: [...] Anion gap [Moles/Vol] 16 mmol/L High 8-15 [facility] Comment on above: Order Comment: Speci men Type: BLOOD SPECIMEN Ordering Facility: [facility] Address: [address] [place] [address] Performed By: #### 2 4325-3, , 22715-6, LIPNF #### [facility] CLIA [id number] [address] [place] [address] [place] Calcium [Mass/Vol] 9.7 mg/dL Normal 8.5-10.2 [facility] Comment on above: Order Comment: Speci men Type: BLOOD SPECIMEN Ordering Facility: [facility] Address: [address] [place] [address] Performed By: #### 2 4325-3, , 45203-4, LIPNF #### [facility] CLIA [id number] [address] [place] [address] [place] Chloride [Moles/Vol] 98 mmol/L Normal 98-107 [facility] Comment on above: Order Comment: Speci men Type: BLOOD SPECIMEN Ordering Facility: [facility] Address: [address] [place] [address] Performed By: #### 2 4325-3, , 44804-0, LIPNF #### [facility] CLIA [id number] [address] [place] [address] [place] CO2 [Moles/Vol] 21 mmol/L Low 22-30 [facility] Comment on above: Order Comment: Speci men Type: BLOOD SPECIMEN Ordering Facility: [facility] Address: [address] [place] [address] Performed By: #### 2 4325-3, , 07198-9, LIPNF #### [facility] CLIA [id number] [address] [place], [place] [address] [place] Creatinine [Mass/Vol] 1.00 mg/dL Normal 0.73-1.22 [facility] Comment on above: Order Comment: Speci men Type: BLOOD SPECIMEN Ordering Facility: [facility] Address: [address] [place] [address] Performed By: #### 2 4325-3, , 44534-1, LIPNF #### [facility] CLIA [id number] [address] [place] [address] [place] eGFRcr SerPlBld CKD-EPI 2020 88 mL/min/1.73m??? Normal >=60 [facility] Comment on above: Order Comment: Speci men Type: BLOOD SPECIMEN Ordering Facility: [facility] Address: [address] [place] [address] Result Comment: Shelley mated Glomerular Filtration Rate [...] actual GFR. Performed By: #### 2 4325-3, 46423-2, 64609-6, LIPNF #### [facility] CLIA [id number] [address] [place], [place] [address] [place] Glucose [Mass/Vol] 128 mg/dL High 74-99 [facility] Comment on above: Order Comment: Speci men Type: BLOOD SPECIMEN Ordering Facility: [facility] Address: [address] [place] [address] Result Comment: The [place] Diabetes Association (ADA) provides guidance for cutoff [...] Standards of Medical Care in Diabetes 2016, [place] Diabetes Association. Diabetes Care. 2016.39(Suppl 1). Performed By: #### 2 4325-3, , 25378-2, LIPNF #### [facility] CLIA [id number] [address] [place] [address] [place] Potassium [Moles/Vol] 4.3 mmol/L Normal 3.7-5.1 [facility] Comment on above: Order Comment: Speci men Type: BLOOD SPECIMEN Ordering Facility: [facility] Address: [address] [place] [address] Performed By: #### 2 4325-3, , 24993-3, LIPNF #### [facility] CLIA [id number] [address] [place] [address] [place] Sodium [Moles/Vol] 135 mmol/L Low 136-144 [facility] Comment on above: Order Comment: Speci men Type: BLOOD SPECIMEN Ordering Facility: [facility] Address: [address] [place] [address] Performed By: #### 2 4325-3, , 33363-3, LIPNF #### [facility] CLIA [id number] [address] [place] [address] [place] Urea nitrogen [Mass/Vol] 10 mg/dL Normal 9-24 [facility] Comment on above: Order Comment: Speci men Type: BLOOD SPECIMEN Ordering Facility: [facility] Address: [address] [place] [address] Performed By: #### 2 4325-3, 19146-6, 53840-7, LIPNF #### [facility] CLIA [id number] [address] [place] [address] [place] CBC W Auto Differential pane l (Bld)on 06-24-2025 Basophils (Bld) [#/Vol] 0.04 10*3/uL Normal <0.11 [facility] Comment on above: Order Comment: Speci men Type: BLOOD SPECIMEN Ordering Facility: [facility] Address: [address] [place] [address] Performed By: #### 5 7021-8 #### [facility] CLIA [id number] [address] [place] [address] [place] Basophils/100 WBC (Bld) 0.8 % Normal [facility] Comment on above: Order Comment: Speci men Type: BLOOD SPECIMEN Ordering Facility: [facility] Address: [address] [place] [address] Performed By: #### 5 7021-8 #### [facility] CLIA [id number] [address] [place] [address] [place] Differential cell count method Nom (Bld) Auto Normal [facility] Comment on above: Order Comment: Speci men Type: BLOOD SPECIMEN Ordering Facility: [facility] Address: [address] [place] [address] Performed By: #### 5 7021-8 #### [facility] CLIA [id number] [address] [place] [address] [place] Eosinophils (Bld) [#/Vol] 0.07 10*3/uL Normal <0.46 [facility] Comment on above: Order Comment: Speci men Type: BLOOD SPECIMEN Ordering Facility: [facility] Address: [address] [place] [address] Performed By: #### 5 7021-8 #### [facility] CLIA [id number] [address] [place] [address] [place] Eosinophils/100 WBC (Bld) 1.4 % Normal [facility] Comment on above: Order Comment: Speci men Type: BLOOD SPECIMEN Ordering Facility: [facility] Address: [address] [place] [address] Performed By: #### 5 7021-8 #### [facility] CLIA [id number] [address] [place] [address] [place] Erythrocyte distribution width (RBC) [Ratio] 12.4 % Normal 11.5-15.0 [facility] Comment on above: Order Comment: Speci men Type: BLOOD SPECIMEN Ordering Facility: [facility] Address: [address] [place] [address] Performed By: #### 5 7021-8 #### [facility] CLIA [id number] [address] [place] [address] [place] Hematocrit (Bld) [Volume fraction] 39.9 % Normal 39.0-51.0 [facility] Comment on above: Order Comment: Speci men Type: BLOOD SPECIMEN Ordering Facility: [facility] Address: [address] [place] [address] Performed By: #### 5 7021-8 #### [facility] CLIA [id number] [address] [place] [address] [place] Hemoglobin (Bld) [Mass/Vol] 14.0 g/dL Normal 13.0-17.0 [facility] Comment on above: Order Comment: Speci men Type: BLOOD SPECIMEN Ordering Facility: [facility] Address: [address] [place] [address] Performed By: #### 5 7021-8 #### [facility] CLIA [id number] [address] [place] [address] [place] Immature granulocytes (Bld) [#/Vol] 10*3/uL Normal <0.10 [facility] Comment on above: Order Comment: Speci men Type: BLOOD SPECIMEN Ordering Facility: [facility] Address: [address] [place] [address] Performed By: #### 5 7021-8 #### [facility] CLIA [id number] [address] [place] [address] [place] Immature granulocytes/100 WBC (Bld) 0.4 % Normal [facility] Comment on above: Order Comment: Speci men Type: BLOOD SPECIMEN Ordering Facility: [facility] Address: [address] [place] [address] Performed By: #### 5 7021-8 #### [facility] CLIA [id number] [address] [place] [address] [place] Lymphocytes (Bld) [#/Vol] 1.21 10*3/uL Normal 1.00-4.00 [facility] Comment on above: Order Comment: Speci men Type: BLOOD SPECIMEN Ordering Facility: [facility] Address: [address] [place] [address] Performed By: #### 5 7021-8 #### [facility] CLIA [id number] [address] [place] [address] [place] Lymphocytes/100 WBC (Bld) 23.5 % Normal [facility] Comment on above: Order Comment: Speci men Type: BLOOD SPECIMEN Ordering Facility: [facility] Address: [address] [place] [address] Performed By: #### 5 7021-8 #### [facility] CLIA [id number] [address] [place] [address] [place] MCH (RBC) [Entitic mass] 34.5 pg High 26.0-34.0 [facility] Comment on above: Order Comment: Speci men Type: BLOOD SPECIMEN Ordering Facility: [facility] Address: [address] [place] [address] Performed By: #### 5 7021-8 #### [facility] CLIA [id number] [address] [place] [address] [place] MCHC (RBC) [Mass/Vol] 35.1 g/dL Normal 30.5-36.0 [facility] Comment on above: Order Comment: Speci men Type: BLOOD SPECIMEN Ordering Facility: [facility] Address: [address] [place] [address] Performed By: #### 5 7021-8 #### [facility] CLIA [id number] [address] [place] [address] [place] MCV (RBC) [Entitic vol] 98.3 fL Normal 80.0-100.0 [facility] Comment on above: Order Comment: Speci men Type: BLOOD SPECIMEN Ordering Facility: [facility] Address: [address] [place] [address] Performed By: #### 5 7021-8 #### [facility] CLIA [id number] [address] [place] [address] [place] Monocytes (Bld) [#/Vol] 0.47 10*3/uL Normal <0.87 [facility] Comment on above: Order Comment: Speci men Type: BLOOD SPECIMEN Ordering Facility: [facility] Address: [address] [place] [address] Performed By: #### 5 7021-8 #### [facility] CLIA [id number] [address] [place] [address] [place] Monocytes/100 WBC (Bld) 9.1 % Normal [facility] Comment on above: Order Comment: Speci men Type: BLOOD SPECIMEN Ordering Facility: [facility] Address: [address] [place] [address] Performed By: #### 5 7021-8 #### [facility] CLIA [id number] [address] [place] [address] [place] Neutrophils (Bld) [#/Vol] 3.34 10*3/uL Normal 1.45-7.50 [facility] Comment on above: Order Comment: Speci men Type: BLOOD SPECIMEN Ordering Facility: [facility] Address: [address] [place] [address] Performed By: #### 5 7021-8 #### [facility] CLIA [id number] [address] [place] [address] [place] Neutrophils/100 WBC (Bld) 64.8 % Normal [facility] Comment on above: Order Comment: Speci men Type: BLOOD SPECIMEN Ordering Facility: [facility] Address: [address] [place] [address] Performed By: #### 5 7021-8 #### [facility] CLIA [id number] [address] [place] [address] [place] Nucleated RBC (Bld) [#/Vol] 10*3/uL Normal <0.01 [facility] Comment on above: Order Comment: Speci men Type: BLOOD SPECIMEN Ordering Facility: [facility] Address: [address] [place] [address] Performed By: #### 5 7021-8 #### [facility] CLIA [id number] [address] [place] [address] [place] Nucleated RBC/100 WBC (Bld) [Ratio] 0.0 /100 WBC Normal [facility] Comment on above: Order Comment: Speci men Type: BLOOD SPECIMEN Ordering Facility: [facility] Address: [address] [place] [address] Performed By: #### 5 7021-8 #### [facility] CLIA [id number] [address] [place] [address] [place] Platelet mean volume (Bld) [Entitic vol] 9.4 fL Normal 9.0-12.7 [facility] Comment on above: Order Comment: Speci men Type: BLOOD SPECIMEN Ordering Facility: [facility] Address: [address] [place] [address] Performed By: #### 5 7021-8 #### [facility] CLIA [id number] [address] [place] [address] [place] Platelets (Bld) [#/Vol] 179 10*3/uL Normal 150-400 [facility] Comment on above: Order Comment: Speci men Type: BLOOD SPECIMEN Ordering Facility: [facility] Address: [address] [place] [address] Performed By: #### 5 7021-8 #### [facility] CLIA [id number] [address] [place] [address] [place] RBC (Bld) [#/Vol] 4.06 10*6/uL Low 4.20-6.00 [facility] Comment on above: Order Comment: Speci men Type: BLOOD SPECIMEN Ordering Facility: [facility] Address: [address] [place] [address] Performed By: #### 5 7021-8 #### [facility] CLIA [id number] [address] [place] [address] [place] WBC (Bld) [#/Vol] 5.15 10*3/uL Normal 3.70-11.00 [facility] Comment on above: Order Comment: Speci men Type: BLOOD SPECIMEN Ordering Facility: [facility] Address: [address] [place] [address] Performed By: #### 5 7021-8 #### [facility] CLIA [id number] [address] [place] [address] [place] CNOVon 06-24-2025 CNOV Office Visit (FAMPWS ) MANA ASH ([id number]) 1970 M Date Time Provider Department 06/24/25 [...] file p (more content not included)... Normal [facility] HbA1c (Bld)on 06-24-2025 Average glucose Estimated from glycated hemoglobin (Bld) [Mass/Vol] 100 mg/dL Normal [facility] Comment on above: Order Comment: Sarah muñiz Type: BLOOD SPECIMEN Ordering Facility: [facility] Address: [address] [place] [address] Result Comment: eAG: (Estimated average glucose) is a calculated value from HgbA1c and is hobbies and crafts sales representative of the average blood glucose level in the last 2-3 month period. Performed By: #### 5 5454-3 #### [facility] CLIA [id number] [address] [place] [address] [place] HbA1c (Bld) [Mass fraction] 5.1 % Normal 4.3-5.6 [facility] Comment on above: Order Comment: Sarah muñiz Type: BLOOD SPECIMEN Ordering Facility: [facility] Address: [address] [place] [address] Result Comment: [place] Diabetes Association guidelines indicate that patients with HgbA1c in the range 5.7-6.4% are at increased risk for development of diabetes, and intervention by lifestyle modification may be beneficial. HgbA1c greater or equal to 6.5% is considered diagnostic of diabetes. Performed By: #### 5 5454-3 #### [facility] CLIA [id number] [address] [place] [address] [place] Hepatic function 2000 panelo n 06-24-2025 Albumin [Mass/Vol] 4.5 g/dL Normal 3.9-4.9 [facility] Comment on above: Order Comment: Sarah muñiz Type: BLOOD SPECIMEN Ordering Facility: [facility] Address: [address] [place] [address] Performed By: #### 2 4325-3, 33063-6, 64283-1, LIPNF #### [facility] CLIA [id number] [address] [place], [place] [address] [place] ALP [Catalytic activity/Vol] 77 U/L Normal 38-113 [facility] Comment on above: Order Comment: Speci men Type: BLOOD SPECIMEN Ordering Facility: [facility] Address: [address] [place] [address] Performed By: #### 2 4325-3, , 70691-1, LIPNF #### [facility] CLIA [id number] [address] [place] [address] [place] ALT [Catalytic activity/Vol] 56 U/L High 10-54 [facility] Comment on above: Order Comment: Speci men Type: BLOOD SPECIMEN Ordering Facility: [facility] Address: [address] [place] [address] Performed By: #### 2 4325-3, , 83226-5, LIPNF #### [facility] CLIA [id number] [address] [place] [address] [place] AST [Catalytic activity/Vol] 64 U/L High 14-40 [facility] Comment on above: Order Comment: Speci men Type: BLOOD SPECIMEN Ordering Facility: [facility] Address: [address] [place] [address] Performed By: #### 2 4325-3, , 24284-1, LIPNF #### [facility] CLIA [id number] [address] [place], [place] [address] [place] Bilirubin [Mass/Vol] 0.7 mg/dL Normal 0.2-1.3 [facility] Comment on above: Order Comment: Speci men Type: BLOOD SPECIMEN Ordering Facility: [facility] Address: [address] [place] [address] Performed By: #### 2 4325-3, 71346-5, 24965-7, LIPNF #### [facility] CLIA [id number] [address] [place] [address] [place] Bilirubin.conjugated [Mass/Vol] 0.3 mg/dL High <0.3 [facility] Comment on above: Order Comment: Speci men Type: BLOOD SPECIMEN Ordering Facility: [facility] Address: [address] [place] [address] Performed By: #### 2 4325-3, 88496-5, 23749-1, LIPNF #### [facility] CLIA [id number] [address] [place] [address] [place] Protein [Mass/Vol] 7.5 g/dL Normal 6.3-8.0 [facility] Comment on above: Order Comment: Speci men Type: BLOOD SPECIMEN Ordering Facility: [facility] Address: [address] [place] [address] Performed By: #### 2 4325-3, 36851-6, 11484-8, LIPNF #### [facility] CLIA [id number] [address] [place] [address] [place] LIPID PANEL, NONFASTINGon Cholesterol [Mass/Vol] 148 mg/dL Normal <200 [facility] Comment on above: Order Comment: Speci men Type: BLOOD SPECIMEN Ordering Facility: [facility] Address: [address] [place] [address] Result Comment: <200 mg/dL, Desirable 200-239 mg/dL, Borderline high >239 mg/dL, High Performed By: #### 2 4325-3, 03130-2, 70190-0, LIPNF #### [facility] CLIA [id number] [address] [place], [place] [address] [place] HDL CHOLESTEROL, NF 67 mg/dL Normal >39 [facility] Comment on above: Order Comment: Speci men Type: BLOOD SPECIMEN Ordering Facility: [facility] Address: [address] [place] [address] Result Comment: 40-5 9 mg/dL, Acceptable >59 mg/dL, High: Negative risk factor for coronary heart disease <40 mg/dL, Low: Positive risk factor for coronary heart disease Performed By: #### 2 4325-3, , 61725-7, LIPNF #### [facility] CLIA [id number] [facility] [facility] [address] [facility] LDL CHOLESTEROL CALCULATED, NF 49 mg/dL Normal <100 [facility] Comment on above: Order Comment: Speci men Type: BLOOD SPECIMEN Ordering Facility: [facility] Address: [address] [place] [address] Result Comment: <100 mg/dL, Optimal 100-129 mg/dL, Near optimal/above optimal 130-159 mg/dL, Borderline high 160-189 mg/dL, High >189 mg/dL, Very high Secondary prevention optimal LDL Cholesterol levels are recommended to be <70 mg/dL LDL cholesterol is calculated using the Liu-NIH equation. Performed By: #### 2 5-3, , 00481-7, LIPNF #### [facility] CLIA [id number] [address] [place] [address] [place] LDL/HDL RATIO, NF 0.73 mg/dL Normal <2.54 [facility] Comment on above: Order Comment: Merlenejan muñiz Type: BLOOD SPECIMEN Ordering Facility: [facility] Address: [address] [place] [address] Result Comment: Refe rence: 1. National Cholesterol Education Program ATP III Guideline At-A-Glance Quick Desk Reference: National Heart, Lung, and Blood Ray. National Institutes of Health. 2001: NIH Publication No. 01-3305. 2. An International Atherosclerosis Society position paper: global recommendations for the management of dyslipidemia: executive summary, Atherosclerosis. 2014: 232(2):410-413. Performed By: #### 2 4325-3, , 62211-6, LIPNF #### [facility] CLIA [id number] [address] [facility] [address] [place] NON HDL CHOL, NF 81 mg/dL Normal <130 [facility] Comment on above: Order Comment: Speci men Type: BLOOD SPECIMEN Ordering Facility: [facility] Address: [address] [place] [address] Result Comment: <130 mg/dL, Optimal 130-159 mg/dL, Near optimal/above optimal 160-189 mg/dL, Borderline high 190-219 mg/dL, High >219 mg/dL, Very high Secondary prevention optimal non HDL Cholesterol levels are recommended to be <100 mg/dL Performed By: #### 2 4325-3, 75352-5, 96659-1, LIPNF #### [facility] CLIA [id number] [address] [place] [address] [place] T CHOL/HDL RATIO NF 2.21 mg/dL Normal <5.10 [facility] Comment on above: Order Comment: Speci men Type: BLOOD SPECIMEN Ordering Facility: [facility] Address: [address] [place] [address] Performed By: #### 2 4325-3, 88302-1, 47593-0, LIPNF #### [facility] CLIA [id number] [address] [place] [address] [place] TRIGLYCERIDES, NF 205 mg/dL High <150 [facility] Comment on above: Order Comment: Speci men Type: BLOOD SPECIMEN Ordering Facility: [facility] Address: [address] [place] [address] Result Comment: <150 mg/dL, Normal 150-199 mg/dL, Borderline high 200-499 mg/dL, High >499 mg/dL, Very high Performed By: #### 2 4325-3, 40391-3, 24282-0, LIPNF #### [facility] CLIA [id number] [address] [place] [address] [place] VLDL CHOLESTEROL, NF 29 mg/dL Normal <30 [facility] Comment on above: Order Comment: Speci men Type: BLOOD SPECIMEN Ordering Facility: [facility] Address: [address] [place] [address] Performed By: #### 2 4325-3, 71587-5, 85094-0, LIPNF #### [facility] CLIA [id number] [address] [place] [address] [place] LIVER FIBROSIS AND ACTIVITYo n 06-24-2025 [id number] n [Mass/Vol] 199 mg/dL Normal 80-290 [facility] Comment on above: Order Comment: Speci men Type: BLOOD SPECIMEN Ordering Facility: [facility] Address: [address] [place] [address] Performed By: #### L IVFIB #### [facility] CLIA [id number] [address] [place] [address] [place] ALT [Catalytic activity/Vol] 64 U/L High 10-50 [facility] Comment on above: Order Comment: Speci men Type: BLOOD SPECIMEN Ordering Facility: [facility] Address: [address] [place] [address] Performed By: #### L IVFIB #### [facility] CLIA [id number] [address] [place] [address] [place] Apolipoprotein A-I [Mass/Vol] 216 mg/dL Normal >114 [facility] Comment on above: Order Comment: Speci men Type: BLOOD SPECIMEN Ordering Facility: [facility] Address: [address] [place] [address] Performed By: #### L IVFIB #### [facility] CLIA [id number] [address] [place] [address] [place] Bilirubin [Mass/Vol] 0.6 mg/dL Normal 0.2-1.3 [facility] Comment on above: Order Comment: Speci men Type: BLOOD SPECIMEN Ordering Facility: [facility] Address: [address] [place] [address] Performed By: #### L IVFIB #### [facility] CLIA [id number] [address] [place] FIBROSIS INTERPRETATION No Fibrosis Normal [facility] Comment on above: Order Comment: Speci men Type: BLOOD SPECIMEN Ordering Facility: [facility] Address: [address] [place] [address] Result Comment: Fibr osis Interpretation Table: FibroTest [...] Fibrosis Performed By: #### L IVFIB #### [facility] CLIA [id number] [address] [place] [address] [place] Fibrosis stage Ql F0-F1 Normal [facility] Comment on above: Order Comment: Speci men Type: BLOOD SPECIMEN Ordering Facility: [facility] Address: [address] [place] [address] Performed By: #### L IVFIB #### [facility] CLIA [id number] [address] [place] [address] [place] Gamma glutamyl transferase [Catalytic activity/Vol] 279 U/L High 10-71 [facility] Comment on above: Order Comment: Speci men Type: BLOOD SPECIMEN Ordering Facility: [facility] Address: [address] [place] [address] Performed By: #### L IVFIB #### [facility] CLIA [id number] [address] [place] [address] [place] Haptoglobin [Mass/Vol] 198 mg/dL Normal 31-238 [facility] Comment on above: Order Comment: Speci men Type: BLOOD SPECIMEN Ordering Facility: [facility] Address: [address] [place] [address] Performed By: #### L IVFIB #### [facility] CLIA [id number] [address] [place] [address] [place] NECROINFLAM ACTIVITY INTERP Minimal Activity Normal [facility] Comment on above: Order Comment: Speci men Type: BLOOD SPECIMEN Ordering Facility: [facility] Address: [address] [place] [address] Result Comment: Necr oinflammatory Activity Interpretation Table: [...] activity Performed By: #### L IVFIB #### [facility] CLIA [id number] [address] [place] [address] [place] Necroinflammatory activity grade Ql A1-A2 Normal [facility] Comment on above: Order Comment: Speci men Type: BLOOD SPECIMEN Ordering Facility: [facility] Address: [address] [place] [address] Performed By: #### L IVFIB #### [facility] CLIA [id number] [address] [place] [address] [place] [facility] Magnesium [Mass/Vol] 1.9 mg/dL Normal 1.7-2.3 [facility] Comment on above: Order Comment: Speci men Type: BLOOD SPECIMEN Ordering Facility: [facility] Address: [address] [place] [address] Performed By: #### 2 4325-3, 87003-6, 20115-6, LIPNF #### [facility] CLIA [id number] [address] [place] [address] [place] PSA SerPl-mCncon 06-24-2025 Prostate specific Ag [Mass/Vol] 0.96 ng/mL Normal <2.60 [facility] Comment on above: Order Comment: Speci men Type: BLOOD SPECIMEN Ordering Facility: [facility] Address: [address] [place] [address] Result Comment: Tota l PSA test methodology used is the Electrochemiluminescence Immunoassay by [employer]. Total PSA values by differing methodologies cannot be interchanged. Performed By: #### 2 857-1 #### [facility] CLIA [id number] [address] [place] [address] [place] PT panel Coag (PPP)on 2024 INR Coag (PPP) [Relative time] 1.1 {INR} Normal 0.9-1.3 [facility] Comment on above: Order Comment: Speci men Type: URINE SPECIMEN Ordering Facility: [facility] Address: [address] [place] [address] Result Comment: Shantel min K Antagonist (VKA) Therapeutic Range: INR 2 to 3 (Target INR of 2.5) Note: For patients treated with VKA drugs, such as warfarin, the [place] [employer] 2012 Guideline recommends [...] Chest 2012, 141:7S-47S Blaise RA, et al. [employer] 2017, 70: 252-289 Performed By: #### 2 4356-8 #### [facility] CLIA [id number] [address] [place] [address] [place] PT Coag (PPP) [Time] 11.5 s Normal 9.7-13.0 [facility] Comment on above: Order Comment: Speci men Type: URINE SPECIMEN Ordering Facility: [facility] Address: [address] [place] [address] Performed By: #### 2 4356-8 #### [facility] IA [id number] [address] [place] [address] [place] Urinalysis complete panel (U )on 06-24-2025 Bacteria LM.HPF (Urine sed) [#/Area] Negative Normal Negative [facility] Comment on above: Order Comment: Speci men Type: URINE SPECIMEN Ordering Facility: [facility] Address: [address] [place] [address] Performed By: #### 2 4356-8 #### [facility] IA [id number] [address] [place] [address] [place] Bilirubin Ql (U) Negative Normal Negative [facility] Comment on above: Order Comment: Speci men Type: URINE SPECIMEN Ordering Facility: [facility] Address: [address] [place] [address] Performed By: #### 2 4356-8 #### [facility] CLIA [id number] [address] [place] [address] [place] Clarity (Unsp spec) Clear Normal Clear [facility] Comment on above: Order Comment: Speci men Type: URINE SPECIMEN Ordering Facility: [facility] Address: [address] [place] [address] Performed By: #### 2 4356-8 #### [facility] CLIA [id number] [address] [place] [address] [place] Color (U) Yellow Normal Yellow [facility] Comment on above: Order Comment: Speci men Type: URINE SPECIMEN Ordering Facility: [facility] Address: [address] [place] [address] Performed By: #### 2 4356-8 #### [facility] CLIA [id number] [address] [place] [address] [place] Epithelial cells LM.HPF (Urine sed) [#/Area] None Seen Normal [facility] Comment on above: Order Comment: Speci men Type: URINE SPECIMEN Ordering Facility: [facility] Address: [address] [place] [address] Performed By: #### 2 4356-8 #### [facility] CLIA [id number] [address] [place] [address] [place] Glucose Test strip (U) [Mass/Vol] Negative Normal Negative [facility] Comment on above: Order Comment: Speci men Type: URINE SPECIMEN Ordering Facility: [facility] Address: [address] [place] [address] Performed By: #### 2 4356-8 #### [facility] CLIA [id number] [address] [place] [address] [place] Hemoglobin Ql (U) Negative Normal Negative [facility] Comment on above: Order Comment: Speci men Type: URINE SPECIMEN Ordering Facility: [facility] Address: [address] [place] [address] Performed By: #### 2 4356-8 #### [facility] CLIA [id number] [address] [place], [place] [id number] [place] Hyaline casts (Urine sed) [#/Area] 0 /[LPF] Normal 0 /LPF [facility] Comment on above: Order Comment: Speci men Type: URINE SPECIMEN Ordering Facility: [facility] Address: [address] [place] [address] Performed By: #### 2 4356-8 #### [facility] CLIA [id number] [address] [place] [address] [place] Ketones Ql (U) Negative Normal Negative [facility] Comment on above: Order Comment: Speci men Type: URINE SPECIMEN Ordering Facility: [facility] Address: [address] [place] [address] Performed By: #### 2 4356-8 #### [facility] CLIA [id number] [address] [place] [address] [place] Leukocyte esterase Test strip Ql (U) Negative Normal Negative [facility] Comment on above: Order Comment: Speci men Type: URINE SPECIMEN Ordering Facility: [facility] Address: [address] [place] [address] Performed By: #### 2 4356-8 #### [facility] CLIA [id number] [address] [place] [address] [place] Nitrite Ql (U) Negative Normal Negative [facility] Comment on above: Order Comment: Speci men Type: URINE SPECIMEN Ordering Facility: [facility] Address: [address] [place] [address] Performed By: #### 2 4356-8 #### [facility] CLIA [id number] [address] [place] [address] [place] pH (U) 6.5 [pH] Normal 5.0-8.0 [facility] Comment on above: Order Comment: Speci men Type: URINE SPECIMEN Ordering Facility: [facility] Address: [address] [place] [address] Performed By: #### 2 4356-8 #### [facility] CLIA [id number] [address] [id number] [address] [place] Protein (U) [Mass/Vol] Negative Normal Negative [facility] Comment on above: Order Comment: Speci men Type: URINE SPECIMEN Ordering Facility: [facility] Address: [address] [place] [address] Performed By: #### 2 4356-8 #### [facility] CLIA [id number] [address] [place] [address] [place] RBC LM.HPF (Urine sed) [#/Area] 0-2 /HPF Normal 0-2 /HPF [facility] Comment on above: Order Comment: Speci men Type: URINE SPECIMEN Ordering Facility: [facility] Address: [address] [place] [address] Performed By: #### 2 4356-8 #### [facility] CLIA [id number] [address] [place] [address] [place] Specific gravity (U) [Rel density] 1.014 Normal 1.005-1.030 [facility] Comment on above: Order Comment: Speci men Type: URINE SPECIMEN Ordering Facility: [facility] Address: [address] [place] [address] Performed By: #### 2 4356-8 #### [facility] CLIA [id number] [address] [place] [address] [place] Urobilinogen Ql (U) 0.2 EU/dL Normal 0.2-1.0 EU/dL [facility] Comment on above: Order Comment: Speci men Type: URINE SPECIMEN Ordering Facility: [facility] Address: [address] [place] [address] Performed By: #### 2 4356-8 #### [facility] CLIA [id number] [address] [place] [address] [place] WBC LM.HPF (Urine sed) [#/Area] 0-5 /HPF Normal 0-5 /HPF [facility] Comment on above: Order Comment: Speci men Type: URINE SPECIMEN Ordering Facility: [facility] Address: [address] [place] [address] Performed By: #### 2 4356-8 #### [facility] CLIA [id number] [address] [place] [address] [place] Vit [facility]25 Cobalamin (Vitamin B12) [Mass/Vol] 317 pg/mL Normal 232-1245 [facility] Comment on above: Order Comment: Speci men Type: URINE SPECIMEN Ordering Facility: [facility] Address: [address] [place] [address] Performed By: #### 2 4356-8 #### [facility] CLIA [id number] [address] [place] [address] [place] CNOVon 12-20-2024 CNOV Office Visit (FAMPWS ) MANA ASH ([id number]) 1970 M Date Time Provider Department 12/20/24 7:00 AM [facility] today, we recorded the [...] Pulses: No (more content not included)... Normal [facility] HbA1c (Bld)on 12-20-2024 Average glucose Estimated from glycated hemoglobin (Bld) [Mass/Vol] 120 mg/dL Normal [facility] Comment on above: Order Comment: Speci men Type: BLOOD SPECIMEN Ordering Facility: [facility] Address: [address] [place] [address] Result Comment: eAG: (Estimated average glucose) is a calculated value from HgbA1c and is hobbies and crafts sales representative of the average blood glucose level in the last 2-3 month period. Performed By: #### 5 5454-3 #### [facility] CLIA [id number] [address] [place] [address] [place] HbA1c (Bld) [Mass fraction] 5.8 % High 4.3-5.6 [facility] Comment on above: Order Comment: Speci men Type: BLOOD SPECIMEN Ordering Facility: [facility] Address: [address] [place] [address] Result Comment: Amer [place] Diabetes Association guidelines indicate that patients with HgbA1c in the range 5.7-6.4% are at increased risk for development of diabetes, and intervention by lifestyle modification may be beneficial. HgbA1c greater or equal to 6.5% is considered diagnostic of diabetes. Performed By: #### 5 5454-3 #### [facility] CLIA [id number] [address] [place] [address] [place] Hepatic function 2000 panelo n 12-20-2024 Albumin [Mass/Vol] 4.6 g/dL Normal 3.9-4.9 [facility] Comment on above: Order Comment: Speci men Type: URINE SPECIMEN Ordering Facility: [facility] Address: [address] [place] [address] Performed By: #### 2 4356-8 #### [facility] CLIA [id number] [address] [place] [address] [place] ALP [Catalytic activity/Vol] 83 U/L Normal 38-113 [facility] Comment on above: Order Comment: Speci men Type: URINE SPECIMEN Ordering Facility: [facility] Address: [address] [place] [address] Performed By: #### 2 4356-8 #### [facility] CLIA [id number] [address] [place] [address] [place] ALT [Catalytic activity/Vol] 67 U/L High 10-54 [facility] Comment on above: Order Comment: Speci men Type: URINE SPECIMEN Ordering Facility: [facility] Address: [address] [place] [address] Performed By: #### 2 4356-8 #### [facility] CLIA [id number] [address] [place] [address] [place] AST [Catalytic activity/Vol] 64 U/L High 14-40 [facility] Comment on above: Order Comment: Speci men Type: URINE SPECIMEN Ordering Facility: [facility] Address: [address] [place] [address] Performed By: #### 2 4356-8 #### [facility] CLIA [id number] [address] [place] [address] [place] Bilirubin [Mass/Vol] 0.6 mg/dL Normal 0.2-1.3 [facility] Comment on above: Order Comment: Speci men Type: URINE SPECIMEN Ordering Facility: [facility] Address: [address] [place] [address] Performed By: #### 2 4356-8 #### [facility] CLIA [id number] [address] [place] [address] [place] Bilirubin.conjugated [Mass/Vol] 0.3 mg/dL High <0.3 [facility] Comment on above: Order Comment: Speci men Type: URINE SPECIMEN Ordering Facility: [facility] Address: [address] [place] [address] Performed By: #### 2 4356-8 #### [facility] CLIA [id number] [address] [place] [address] [place] Protein [Mass/Vol] 7.5 g/dL Normal 6.3-8.0 [facility] Comment on above: Order Comment: Speci men Type: URINE SPECIMEN Ordering Facility: [facility] Address: [address] [place] [address] Performed By: #### 2 4356-8 #### [facility] CLIA [id number] [address] [place] [address] [facility] [place] LIPID PANEL, NONFASTINGon Cholesterol [Mass/Vol] 135 mg/dL Normal <200 [facility] Comment on above: Order Comment: Speci men Type: URINE SPECIMEN Ordering Facility: [facility] Address: [address] [place] [address] Result Comment: <200 mg/dL, Desirable 200-239 mg/dL, Borderline high >239 mg/dL, High Performed By: #### 2 4356-8 #### [facility] CLIA [id number] [address] [place] [address] [place] HDL CHOLESTEROL, NF 68 mg/dL Normal >39 [facility] Comment on above: Order Comment: Speci men Type: URINE SPECIMEN Ordering Facility: [facility] Address: [address] [place] [address] Result Comment: 40-5 9 mg/dL, Acceptable >59 mg/dL, High: Negative risk factor for coronary heart disease <40 mg/dL, Low: Positive risk factor for coronary heart disease Performed By: #### 2 4356-8 #### [facility] CLIA [id number] [address] [place] [address] [place] LDL CHOLESTEROL, NF 26 mg/dL Normal <100 [facility] Comment on above: Order Comment: Speci men Type: URINE SPECIMEN Ordering Facility: [facility] Address: [address] [place] [address] Result Comment: <100 mg/dL, Optimal 100-129 mg/dL, Near optimal/above optimal 130-159 mg/dL, Borderline high 160-189 mg/dL, High >189 mg/dL, Very high Secondary prevention optimal LDL Cholesterol levels are recommended to be < 70 mg/dL Performed By: #### 2 4356-8 #### [facility] CLIA [id number] [address] [place] [address] [place] LDL/HDL RATIO, NF 0.38 mg/dL Normal <2.54 [facility] Comment on above: Order Comment: Speci men Type: URINE SPECIMEN Ordering Facility: [facility] Address: [address] [place] [address] Result Comment: Jack real: 1. National Cholesterol Education Program ATP III Guideline At-A-Glance Quick Desk Reference: National Heart, Lung, and Blood Ray. National Institutes of Health. 2001: NIH Publication No. 01-3305. 2. An International Atherosclerosis Society position paper: global recommendations for the management of dyslipidemia: executive summary, Atherosclerosis. 2014: 232(2):410-413. Performed By: #### 2 4356-8 #### [facility] CLIA [id number] [address] [place] [address] [place] NON HDL CHOL, NF 67 mg/dL Normal <130 [facility] Comment on above: Order Comment: Speci men Type: URINE SPECIMEN Ordering Facility: [facility] Address: [address] [place] [address] Result Comment: <130 mg/dL, Optimal 130-159 mg/dL, Near optimal/above optimal 160-189 mg/dL, Borderline high 190-219 mg/dL, High >219 mg/dL, Very high Secondary prevention optimal non HDL Cholesterol levels are recommended to be <100 mg/dL Performed By: #### 2 4356-8 #### [facility] CLIA [id number] [address] [place] [address] [place] T CHOL/HDL RATIO NF 1.99 mg/dL Normal <5.10 [facility] Comment on above: Order Comment: Speci men Type: URINE SPECIMEN Ordering Facility: [facility] Address: [address] [place] [address] Performed By: #### 2 4356-8 #### [facility] CLIA [id number] [address] [place] [address] [place] TRIGLYCERIDES, NF 207 mg/dL High <150 [facility] Comment on above: Order Comment: Speci men Type: URINE SPECIMEN Ordering Facility: [facility] Address: [address] [place] [address] Result Comment: <150 mg/dL, Normal 150-199 mg/dL, Borderline high 200-499 mg/dL, High >499 mg/dL, Very high Performed By: #### 2 4356-8 #### [facility] CLIA [id number] [address] [place], [place] [address] [place] [address] [place] VLDL CHOLESTEROL, NF 41 mg/dL High <30 [facility] Comment on above: Order Comment: Speci men Type: URINE SPECIMEN Ordering Facility: [facility] Address: [address] [place] [address] Performed By: #### 2 4356-8 #### [facility] CLIA [id number] [address] [place] [address] [place] FLUORO UP TO 1 HOURon 2017 FLUORO UP TO 1 HOUR Performed at [facility] APPROVED BY: Johnny Bassett MD IMPRESSION: 5 seconds of fluoroscopy time was utilized during laparoscopic cholecystectomy with intraoperative cholangiogram. Normal [facility] Surgical Tissue Examon 02-24 Surgical Tissue Exam Test performed at A [address] [address]AHYM: MANA ASH [id number] REQUESTING: SHARMAINE PIMENTEL MDFINAL DIAGNOSIS: GALLBLADDER, CHOLECYSTECTOMY [...] is0.1 to 0.3 cm in thickness, and hobbies and crafts sales representative sections are submittedin one cassette. BMP:jonas CARUSO M.D., PATHOLOGIST(Electronic signature on file)Signed out: 02/25/2018 16:07PRINTED: 02/25/2018 Page 1 of 1 Normal [facility] Comment on above: Performed By: #### S URG ####[place] [address] DDI VIBRATION CONTROLLED TRA NSIENT ELASTOGRAPHY (VCTE) [facility] Vital Signs Date Time Vital Sign Value Performing Clinician Facility 12-20-2024 07:06-0400 Diastolic blood pressure 83 mm[Hg] Mary Ann Carlos PA-C Work Phone: [facility] Comment on above: average with bp machine 12-20-2024 07:06-0400 Heart rate 79 /min Mary Ann Carlos PA-C Work Phone: [facility] 12-20-2024 07:06-0400 Systolic blood pressure 126 mm[Hg] Mary Ann Carlos PA-C Work Phone: [facility] Comment on above: average with bp machine 12-20-2024 06:53-0400 Body mass index (BMI) [Ratio] 42.27 kg/m2 Mary Ann Carlos PA-C Work Phone: [facility] 12-20-2024 06:53-0400 Body temperature 97.7 [degF] Mary Ann Carlos PA-C Work Phone: [facility] 12-20-2024 06:53-0400 Body weight 126.1 kg Mary Ann Carlos PA-C Work Phone: [facility] 12-20-2024 06:53-0400 Respiratory rate 18 /min Mary Ann Carlos PA-C Work Phone: [facility] 12-20-2024 06:53-0400 SaO2% (BldA) [Mass fraction] 98 % Mary Ann Carlos PA-C Work Phone: [facility] 06-29-2024 07:54-0400 Body height 172.7 cm Babatunde Kerr MD Work Phone: [facility] 06-29-2024 07:54-0400 Body mass index (BMI) [Ratio] 40.45 kg/m2 Babatunde Kerr MD Work Phone: [facility] 06-29-2024 07:54-0400 Body weight 120.66 kg Babatunde Kerr MD Work Phone: [facility] 06-29-2024 07:54-0400 Diastolic blood pressure 84 mm[Hg] Babatunde Kerr MD Work Phone: [facility] 06-29-2024 07:54-0400 Heart rate 76 /min Babatunde Kerr MD Work Phone: [facility] 06-29-2024 07:54-0400 Respiratory rate 16 /min Babatunde Kerr MD Work Phone: [facility] 06-29-2024 07:54-0400 Systolic blood pressure 132 mm[Hg] Babatunde Kerr MD Work Phone: [facility] 08-20-2023 08:52-0500 Body height 177.8 cm Doris Guadalupe INSTRUCTOR PHYSICAL.SECURITIES TRADER Work Phone: [facility] 08-20-2023 08:52-0500 Body temperature 97.81 [degF] Doris Guadalupe INSTRUCTOR PHYSICAL.SECURITIES TRADER Work Phone: [facility] 08-20-2023 08:52-0500 Body weight 123.47 kg Doris Guadalupe INSTRUCTOR PHYSICAL.SECURITIES TRADER Work Phone: [facility] 08-20-2023 08:52-0500 Diastolic blood pressure 64 mm[Hg] Doris Guadalupe INSTRUCTOR PHYSICAL.SECURITIES TRADER Work Phone: [facility] 08-20-2023 08:52-0500 Heart rate 87 /min Doris Guadalupe INSTRUCTOR PHYSICAL.SECURITIES TRADER Work Phone: [facility] 08-20-2023 08:52-0500 SaO2% (BldA) [Mass fraction] 97 % Doris Guadalupe INSTRUCTOR PHYSICAL.SECURITIES TRADER Work Phone: [facility] 08-20-2023 08:52-0500 Systolic blood pressure 139 mm[Hg] Doris Guadalupe INSTRUCTOR PHYSICAL.SECURITIES TRADER Work Phone: [facility] 01-18-2022 07:44-0400 Body height 175.3 cm Babatunde Kerr MD Work Phone: [facility] 01-18-2022 07:44-0400 Body weight 125.65 kg Babatunde Kerr MD Work Phone: [facility] 01-18-2022 07:44-0400 Diastolic blood pressure 84 mm[Hg] Babatunde Kerr MD Work Phone: [facility] 01-18-2022 07:44-0400 Heart rate 60 /min Babatunde Kerr MD Work Phone: [facility] 01-18-2022 07:44-0400 Respiratory rate 14 /min Babatunde Kerr MD Work Phone: [facility] 01-18-2022 07:44-0400 Systolic blood pressure 126 mm[Hg] Babatunde Kerr MD Work Phone: [facility] Encounters Encounter Date Encounter Type Care Provider Facility Start: 06-24-2025 Encounter for genera l adult medical examination without abnormal findings BABATUNDE KERR [facility] Start: 06-24-2025 End: 06-24-2025 ambulatory BABATUNDE KERR Facility:[facility] Start: 12-31-2024 End: 12-31-2024 ambulatory Doris Guadalupe INSTRUCTOR PHYSICAL.SECURITIES TRADER Work Phone: [facility] Comment on above: Fatty liver (Primary Dx) Start: 12-31-2024 End: 12-31-2024 Telemedicine consultation with patient Doris João INSTRUCTOR PHYSICAL.SECURITIES TRADER Work Phone: Gastroenterology Start: 12-20-2024 End: 01-07-2025 Follow-up encounter Babatunde Kerr MD Work Phone: [facility] Comment on above: Results Start: 12-20-2024 End: 12-20-2024 ambulatory BABATUNDE KERR Facility:[facility] Start: 12-20-2024 End: 12-20-2024 Office outpatient visit [...] 10-27-2024 ambulatory Babatunde Kerr MD Work Phone: [facility] [place] Comment on above: CPap Start: 09-22-2024 End: 09-23-2024 Refill Babatunde Kerr MD Work Phone: [facility] [place] Comment on above: Refill Request Start: 08-20-2024 End: 08-23-2024 ambulatory Doris Guadalupe APRN.SECURITIES TRADER Work Phone: Gastroenterology Start: 08-20-2024 End: 08-23-2024 Patient encounter procedure Doris Guadalupe APRN.SECURITIES TRADER Work Phone: Gastroenterology Comment on above: 08/20 appointment Start: 06-30-2024 End: 07-05-2024 Telephone encounter Babatunde Kerr MD Work Phone: [facility] [place] Comment on above: Results Start: 06-29-2024 End: 06-29-2024 Patient encounter procedure Babatunde Kerr MD Work Phone: [facility] [place] Comment on above: Well [...] encounter status Babatunde Kerr MD Work Phone: [facility] Work Phone: Start: 06-09-2024 End: 06-09-2024 Patient encounter procedure Raghu Tomasa Maldonado OD Work Phone: Optometry Comment on above: Myopia, bilateral (P rimary Dx); Regular astigmatism of left eye; Presbyopia; Vitreous floaters of both eyes; Round retinal hole, right Start: 01-16-2024 Refill Babatunde robin MD Work Phone: [facility] [place] Comment on above: Med Change Request Start: 01-16-2024 Telephone encounter Babatunde Kerr MD Work Phone: [facility] [place] Comment on above: Medication Problem Start: 01-14-2024 Refill Babatunde robin MD Work Phone: [facility] [place] Comment on above: Refill Request Start: 01-11-2024 ambulatory Babatunde robin MD Work Phone: [facility] [place] Comment on above: meds Start: 01-07-2024 ambulatory Babatunde robin MD Work Phone: [facility] [place] Comment on above: Atorvastatin Start: 08-24-2023 Refill Babatunde robin MD Work Phone: [facility] [place] Comment on above: Refill Request Start: 08-22-2023 End: 08-22-2023 ambulatory Hepatology A5 Work Phone: Gastroenterology Start: 08-22-2023 End: 08-22-2023 Patient encounter procedure Hepatology Procedures A5 Work Phone: [facility] Start: 08-20-2023 End: 08-20-2023 Patient encounter procedure Doris Guadalupe APRN.SECURITIES TRADER Work Phone: Gastroenterology Comment on above: Fatty liver (Primary Dx) Start: 07-08-2023 Refill Babatunde robin MD Work Phone: [facility] [place] Comment on above: Refill Request Start: 06-25-2023 Patient encounter status Babatunde Kerr MD Work Phone: [facility] Work Phone: Start: 05-16-2023 Refill Babatunde robin MD Work Phone: [facility] [place] Comment on above: Refill Request Start: 04-07-2023 ambulatory Babatunde robin MD Work Phone: [facility] [place] Comment on above: New CPap Refill Request Robs CPap Start: 01-16-2023 Telephone encounter Babatunde Kerr MD Work Phone: [facility] [place] Comment on above: CPAP Order Start: 01-14-2023 ambulatory Babatunde robin MD Work Phone: [facility] [place] Comment on above: CPAP Start: 11-05-2022 Refill Babatunde robin MD Work Phone: [facility] [place] Comment on above: Refill Request Start: 10-18-2022 Refill Babatunde robin MD Work Phone: [facility] [place] Comment on above: Refill Request Start: 09-02-2022 Telephone encounter Babatunde Kerr MD Work Phone: [facility] [place] Comment on above: Results Start: 04-25-2022 Refill Mary Ann Strong on PA-C Work Phone: [facility] [place] Comment on above: Refill Request Start: 02-25-2022 Refill Babatunde robin MD Work Phone: [facility] [place] Comment on above: Refill Request Start: 01-27-2022 Telephone encounter Babatunde Kerr MD Work Phone: [facility] [place] Comment on above: Results Start: 01-22-2022 Telephone encounter Babatunde Kerr MD Work Phone: [facility] [place] Comment on above: Results Start: 01-18-2022 End: [...] encounter status Babatunde Kerr MD Work Phone: [facility] [place] Start: 01-08-2022 Refill Babatunde robin MD Work Phone: [facility] [place] Comment on above: Refill Request Start: 09-05-2020 Patient encounter status Babatunde Kerr MD Work Phone: [facility] Work Phone: Start: 09-06-2018 End: 09-14-2018 Patient encounter procedure UNKNOWN PROVIDER [facility] Procedures Date Procedure Procedure Detail Performing Clinician Start: 12-20-2024 Lipid 1996 panel - S kiki or Plasma Doris Guadalupe INSTRUCTOR PHYSICAL.SECURITIES TRADER Work Phone: Start: 06-29-2024 Lipid 1996 panel - S kiki or Plasma Babatunde Kerr MD Work Phone: Start: 12-25-2023 Lipid 1996 panel - S kiki or Plasma Babatunde Kerr MD Work Phone: Start: 08-22-2023 Liver elastography w /o imag w/i&r Doris Guadalupe INSTRUCTOR PHYSICAL.SECURITIES TRADER Work Phone: Start: 06-25-2023 Lipid 1996 panel - S kiki or Plasma Babatunde Kerr MD Work Phone: Start: 09-27-2019 Colonoscopy Babatunde lainez MD Work Phone: Plan of Treatment Date Care Activity Detail Author Start: 12-20-2029 Lipid panel Lipid Screening [facility] Start: 09-27-2029 Colonoscopy COLONOSCOPY [facility] Start: 09-27-2029 COLORECTAL CANCER SCREENING COLORECTAL CANCER SCREENING [facility] Start: 09-27-2029 Screening for malignant neoplasm of colon [facility] Start: 08-18-2029 Urine microalbumin profile [facility] Start: 06-29-2029 Lipid panel Lipid Screening [facility] Start: 06-29-2029 Prostate specific antigen measurement Prostate Cancer Screening Discussion [facility] Start: 12-24-2028 Lipid panel Lipid Screening [facility] Start: 06-25-2028 Lipid 1996 panel - Serum or Plasma Lipid Screening [facility] Start: 06-25-2028 Prostate specific antigen measurement Prostate Cancer Screening Discussion [facility] Start: 12-21-2027 Diabetes Screening Diabetes Screening [facility] Start: 08-30-2027 LIPID SCREEN LIPID SCREEN [facility] Start: 06-29-2027 Diabetes Screening Diabetes Screening [facility] Start: 01-18-2027 LIPID SCREEN LIPID SCREEN [facility] Start: 08-25-2026 Diabetes Screening Diabetes Screening [facility] Start: 07-13-2026 LIPID SCREEN LIPID SCREEN [facility] Start: 06-25-2026 Diabetes Screening Diabetes Screening [facility] Start: 12-20-2025 Annual PCP Team Chronic Disease Visit Annual PCP Team Chronic Disease Visit [facility] Start: 12-20-2025 Pneumococcal Vaccine: 50+ (1 of 1 - PCV) Pneumococcal Vaccine: 50+ (1 of 1 - PCV) [facility] Comment on above: Postponed from 2019 (Declined at t his time) Start: 08-30-2025 DIABETES SCREEN DIABETES SCREEN [facility] Start: 07-02-2025 End: 12-31-2025 Basic metabolic 2000 panel - Serum or Plasma BASIC METABOLIC PANEL Lab Routine Fatty liver Expected: 07/02/2025, Expires: 12/31/2025 [facility] Comment on above: Expected: 07/02/2025, Expires: Start: 07-02-2025 End: 12-31-2025 CBC W Auto Differential panel - Blood COMPLETE BLOOD COUNT AND DIFFERENTIAL Lab Routine Fatty liver Expected: 07/02/2025, Expires: 12/31/2025 [facility] Comment on above: Expected: 07/02/2025, Expires: Start: 07-02-2025 End: 12-31-2025 Hepatic function 2000 panel - Serum or Plasma HEPATIC FUNCTION PNL Lab Routine Fatty liver Expected: 07/02/2025, Expires: 12/31/2025 [facility] Comment on above: Expected: 07/02/2025, Expires: Start: 07-02-2025 End: 10-01-2025 LIVER FIBROSIS AND ACTIVITY LIVER FIBROSIS AND ACTIVITY Lab Routine Fatty liver Expected: 07/02/2025, Expires: 10/01/2025 [facility] Comment on above: Expected: 07/02/2025, Expires: Start: 07-02-2025 End: 12-31-2025 PT panel - Platelet poor plasma by Coagulation assay PROTHROMBIN TIME Lab Routine Fatty liver Expected: 07/02/2025, Expires: 12/31/2025 [facility] Comment on above: Expected: 07/02/2025, Expires: Start: 06-29-2025 Annual PCP Team Chronic Disease Visit Annual PCP Team Chronic Disease Visit [facility] Start: 06-29-2025 Anxiety Screening Anxiety Screening [facility] Comment on above: Postponed from 1987 (Declined at t his time) Start: 06-29-2025 BP Controlled (<130/80) BP Controlled (<130/80) [facility] Start: 06-24-2025 End: 06-24-2025 Patient encounter procedure 06/24/2025 7:00 AM EDT Office Visit [facility] [place] [address] [place] [address] Babatunde Kerr MD [address] [place] [address] physical [facility] [place] Comment on above: physical Start: 03-28-2025 Influenza vaccination Influenza Vaccine (#1) [facility] Comment on above: Postponed from 05/30/2024 (Declined at t his time) Start: 01-25-2025 DIABETES SCREEN DIABETES SCREEN [facility] Start: 01-18-2025 DIABETES SCREEN DIABETES SCREEN [facility] Start: 12-31-2024 End: 12-31-2024 Follow-up encounter 12/31/2024 3:30 PM EDT [facility] [address] [address] Doris Guadalupe APRN.SECURITIES TRADER [address] [place] [address] [facility] Comment on above: [place] follow up Start: 12-28-2024 End: 12-28-2024 Patient encounter procedure 12/28/2024 7:20 AM EDT Office Visit [facility] [place] [address] [place] [address] Mary Ann Carlos PA-C [address] [place] [id number] 6 month follow up [facility] [place] Comment on above: 6 month follow up Start: 12-24-2024 Annual PCP Team Chronic Disease Visit Annual PCP Team Chronic Disease Visit [facility] Start: 12-24-2024 BP Controlled (<130/80) BP Controlled (<130/80) [facility] Start: 12-17-2024 End: 03-18-2025 Hemoglobin A1c in Blood HEMOGLOBIN A1C Lab Routine Elevated hemoglobin A1c Expected: 12/17/2024, Expires: 03/18/2025 [facility] Comment on above: Expected: 12/17/2024, Expires: Start: 12-17-2024 End: 03-18-2025 Hepatic function 2000 panel - Serum or Plasma HEPATIC FUNCTION PNL Lab Routine MUNIZ (nonalcoholic steatohepatitis) Essential hypertension Hyperlipidemia, mixed Expected: 12/17/2024, Expires: 03/18/2025 [facility] Comment on above: Expected: 12/17/2024, Expires: Start: 12-17-2024 End: 03-18-2025 LIPID PANEL, NONFASTING LIPID PANEL, NONFASTING Lab Routine MUNIZ (nonalcoholic steatohepatitis) Essential hypertension Hyperlipidemia, mixed Expected: 12/17/2024, Expires: 03/18/2025 [facility] Comment on above: Expected: 12/17/2024, Expires: Start: 08-20-2024 End: 08-20-2024 Follow-up encounter 08/20/2024 3:30 PM [facility] Gastroenterology [address] [address] Doris Guadalupe, INSTRUCTOR PHYSICAL.SECURITIES TRADER [address] [place] [address] follow up Gastroenterology Comment on above: follow up Start: 07-13-2024 DIABETES SCREEN DIABETES SCREEN [facility] Start: 06-29-2024 End: 09-28-2024 CBC W Auto Differential panel - Blood [facility] Comment on above: Expected: 06/29/2024, Expires: Start: 06-29-2024 End: 09-28-2024 Cobalamin (Vitamin B12) [Mass/volume] in Serum or Plasma [facility] Work Phone: Comment on above: Expected: 06/29/2024, Expires: Start: 06-29-2024 End: 09-28-2024 Comprehensive metabolic 2000 panel - Serum or Plasma [facility] Comment on above: Expected: 06/29/2024, Expires: Start: 06-29-2024 End: 09-28-2024 Hemoglobin A1c in Blood [facility] Comment on above: Expected: 06/29/2024, Expires: Start: 06-29-2024 End: 09-28-2024 LIPID PANEL, NONFASTING [facility] Comment on above: Expected: 06/29/2024, Expires: Start: 06-29-2024 End: 09-28-2024 Magnesium [Mass/volume] in Serum or Plasma [facility] Comment on above: Expected: 06/29/2024, Expires: Start: 06-29-2024 End: 09-28-2024 Prostate specific Ag [Mass/volume] in Serum or Plasma [facility] Comment on above: Expected: 06/29/2024, Expires: Start: 06-29-2024 End: 09-28-2024 Urinalysis complete panel - Urine [facility] Comment on above: Expected: 06/29/2024, Expires: Start: 06-29-2024 End: 06-29-2024 Patient encounter procedure 06/29/2024 8:00 AM EDT Office Visit [facility] [place] [address] [place] [address] Babatunde Kerr MD [address] [place] [address] Physical [facility] [place] Comment on above: Physical Start: 06-25-2024 Annual PCP Team Chronic Disease Visit Annual PCP Team Chronic Disease Visit [facility] Start: 06-25-2024 BP Controlled (<130/80) BP Controlled (<130/80) [facility] Start: 06-25-2024 Shingrix Vaccine (1 of 2) Shingrix Vaccine (1 of 2) [facility] Comment on above: Postponed from 2019 (Insurance Cov erage) Start: 05-30-2024 Covid-19 Vaccine () Covid-19 Vaccine ( season) [facility] Start: 05-30-2024 Influenza vaccination [facility] Start: 03-28-2024 Influenza vaccination [facility] Comment on above: Postponed from 05/30/2023 (Currently Nikolai eduled) Start: 08-30-2023 ANNUAL PCP TEAM CHRONIC DISEASE VISIT ANNUAL PCP TEAM CHRONIC DISEASE VISIT [facility] Start: 08-30-2023 COVID-19 VACCINE (3 - Booster for Moderna series) COVID-19 VACCINE (3 - Booster for Moderna series) [facility] Comment on above: Postponed from 04/20/2021 (Declined at t his time) Start: 08-30-2023 COVID-19 VACCINE (3 - Moderna series) COVID-19 VACCINE (3 - Moderna series) [facility] Comment on above: Postponed from 04/20/2021 (Declined at t his time) Start: 08-20-2023 End: 11-19-2023 Alpha 1 antitrypsin [Mass/volume] in Serum or Plasma [id number] Lab Routine Fatty liver Expected: 08/20/2023, Expires: 11/19/2023 [facility] Work Phone: Comment on above: Expected: 08/20/2023, Expires: Start: 08-20-2023 End: 08-20-2024 Basic metabolic 2000 panel - Serum or Plasma BASIC METABOLIC PNL Lab Routine Fatty liver Expected: 08/20/2023, Expires: 08/20/2024 [facility] Work Phone: Comment on above: Expected: 08/20/2023, Expires: Start: 08-20-2023 End: 08-20-2024 CBC W Auto Differential panel - Blood CBC + DIFF Lab Routine Fatty liver Expected: 08/20/2023, Expires: 08/20/2024 [facility] Work Phone: Comment on above: Expected: 08/20/2023, Expires: Start: 08-20-2023 End: 11-19-2023 Ceruloplasmin [Mass/volume] in Serum or Plasma CERULOPLASMIN BLD Lab Routine Fatty liver Expected: 08/20/2023, Expires: 11/19/2023 [facility] Work Phone: Comment on above: Expected: 08/20/2023, Expires: 4 Start: 08-20-2023 End: 11-19-2023 Chronic hepatitis differentiation between hepatitis B and C virus panel - Serum or Plasma HEP REMOTE PANEL BL Lab Routine Fatty liver Expected: 08/20/2023, Expires: 11/19/2023 [facility] Work Phone: Comment on above: Expected: 08/20/2023, Expires: 4 Start: 08-20-2023 End: 11-19-2023 Ferritin [Mass/volume] in Serum or Plasma FERRITIN BLD Lab Routine Fatty liver Expected: 08/20/2023, Expires: 11/19/2023 [facility] Work Phone: Comment on above: Expected: 08/20/2023, Expires: 4 Start: 08-20-2023 End: 08-20-2024 Hepatic function 2000 panel - Serum or Plasma HEPATIC FUNCTION PNL Lab Routine Fatty liver Expected: 08/20/2023, Expires: 08/20/2024 [facility] Work Phone: Comment on above: Expected: 08/20/2023, Expires: 4 Start: 08-20-2023 End: 11-19-2023 HEPATITIS A ANTIBODY, IGG HEPATITIS A ANTIBODY, IGG Lab Routine Fatty liver Expected: 08/20/2023, Expires: 11/19/2023 [facility] Work Phone: Comment on above: Expected: 08/20/2023, Expires: 4 Start: 08-20-2023 End: 11-19-2023 Iron and Iron binding capacity panel - Serum or Plasma IRON + TIBC Lab Routine Fatty liver Expected: 08/20/2023, Expires: 11/19/2023 [facility] Work Phone: Comment on above: Expected: 08/20/2023, Expires: 4 Start: 08-20-2023 End: 11-19-2023 LIVER FIBROSIS AND ACTIVITY LIVER FIBROSIS AND ACTIVITY Lab Routine Fatty liver Expected: 08/20/2023, Expires: 11/19/2023 [facility] Work Phone: Comment on above: Expected: 08/20/2023, Expires: 4 Start: 08-20-2023 End: 11-19-2023 Liver kidney microsomal Ab [Titer] in Serum by Immunofluorescence LKM AB Lab Routine Fatty liver Expected: 08/20/2023, Expires: 11/19/2023 [facility] Work Phone: Comment on above: Expected: 08/20/2023, Expires: 4 Start: 08-20-2023 End: 11-19-2023 Mitochondria Ab [Presence] in Serum by Immunofluorescence MITOCHONDRIAL M2 IGG SERUM Lab Routine Fatty liver Expected: 08/20/2023, Expires: 11/19/2023 [facility] Work Phone: Comment on above: Expected: 08/20/2023, Expires: 4 Start: 08-20-2023 End: 11-19-2023 Nuclear Ab [Presence] in Serum by Immunoassay KITTY BLOOD Lab Routine Fatty liver Expected: 08/20/2023, Expires: 11/19/2023 [facility] Work Phone: Comment on above: Expected: 08/20/2023, Expires: 4 Start: 08-20-2023 End: 08-20-2024 PT panel - Platelet poor plasma by Coagulation assay PROTHROMBIN TIME/PT Lab Routine Fatty liver Expected: 08/20/2023, Expires: 08/20/2024 [facility] Work Phone: Comment on above: Expected: 08/20/2023, Expires: 4 Start: 08-20-2023 End: 11-19-2023 Smooth muscle Ab [Presence] in Serum SMOOTH MUSCLE AB SCR Lab Routine Fatty liver Expected: 08/20/2023, Expires: 11/19/2023 [facility] Work Phone: Comment on above: Expected: 08/20/2023, Expires: 4 Start: 05-30-2023 Covid-19 Vaccine () Covid-19 Vaccine () [facility] Start: 05-30-2023 Influenza vaccination INFLUENZA (#1) [facility] Start: 01-18-2023 ANNUAL PCP TEAM CHRONIC DISEASE VISIT ANNUAL PCP TEAM CHRONIC DISEASE VISIT [facility] Start: 01-18-2023 BP CONTROLLED (<130/80) BP CONTROLLED (<130/80) [facility] Start: 01-18-2023 SHINGRIX VACCINE (1 of 2) SHINGRIX VACCINE (1 of 2) [facility] Comment on above: Postponed from 2019 (Insurance Cov erage) Start: 11-29-2022 End: 01-29-2023 Hepatic function 2000 panel - Serum or Plasma HEPATIC FUNCTION PNL Lab Routine Hyperlipidemia, mixed Elevated LFTs Fatty liver Expected: 11/29/2022, Expires: 01/29/2023 [facility] Work Phone: Comment on above: Expected: 11/29/2022, Expires: 3 Start: 11-29-2022 End: 01-29-2023 LIPID PANEL, NONFASTING LIPID PANEL, NONFASTING Lab Routine Hyperlipidemia, mixed Fatty liver Expected: 11/29/2022, Expires: 01/29/2023 [facility] Work Phone: Comment on above: Expected: 11/29/2022, Expires: 3 Start: 07-17-2022 ANNUAL PCP TEAM CHRONIC DISEASE VISIT ANNUAL PCP TEAM CHRONIC DISEASE VISIT [facility] Start: 05-30-2022 Influenza vaccination [facility] Start: 01-22-2022 End: 03-24-2022 Basic metabolic 2000 panel - Serum or Plasma BASIC METABOLIC PNL Lab Routine Hyponatremia Hyperkalemia Expected: 01/22/2022, Expires: 03/24/2022 [facility] Work Phone: Comment on above: Expected: 01/22/2022, Expires: 2 Start: 01-22-2022 End: 03-24-2022 Cortisol [Mass/volume] in Serum or Plasma CORTISOL BLD Lab Routine Hyponatremia Hyperkalemia Expected: 01/22/2022, Expires: 03/24/2022 [facility] Work Phone: Comment on above: Expected: 01/22/2022, Expires: 2 Start: 07-26-2021 COVID-19 VACCINE (3 - Booster for Moderna series) COVID-19 VACCINE (3 - Booster for Moderna series) [facility] Start: 2019 Pneumococcal Vaccine: 50+ (1 of 1 - PCV) Pneumococcal Vaccine: 50+ (1 of 1 - PCV) [facility] Start: 2019 SHINGRIX VACCINE (1 of 2) SHINGRIX VACCINE (1 of 2) [facility] Start: 2014 COLOGUARD (FIT-DNA) COLOGUARD (FIT-DNA) [facility] Start: [address] COLONOGRAPHY [facility] Start: 2014 FECAL OCCULT BLOOD FECAL OCCULT BLOOD [facility] Start: 2014 Screening for malignant neoplasm of colon [facility] Start: 2014 SIGMOIDOSCOPY SIGMOIDOSCOPY [facility] Start: 1987 Anxiety Screening Anxiety Screening [facility] Start: 1987 BP CONTROLLED (<130/80) BP CONTROLLED (<130/80) [facility] Start: 1987 HEPATITIS C SCREENING HEPATITIS C SCREENING [facility] Start: 1987 HIV SCREENING HIV SCREENING [facility] Start: 1969 HEPATITIS B (1 of 3 - 3-dose series) HEPATITIS B (1 of 3 - 3-dose series) [facility] DDI VIBRATION CONTRO LLED TRANSIENT ELASTOGRAPHY (VCTE) DDI VIBRATION CONTROLLED TRANSIENT ELASTOGRAPHY (VCTE) Endoscopy Routine Fatty liver Ordered: 08/20/2023 [facility] Work Phone: Comment on above: Ordered: 08/20/2023 Liver ultrasound attenuation by transient elastography DDI VIBRATION CONTROLLED TRANSIENT ELASTOGRAPHY (VCTE) Endoscopy Routine Fatty liver Ordered: 12/31/2024 [facility] Work Phone: Comment on above: Ordered: 12/31/2024 URINE FREE CORTISOL BY LC-MS/MS URINE FREE CORTISOL BY LC-MS/MS Lab Routine Hyponatremia Hyperkalemia Ordered: 01/22/2022 [facility] Work Phone: Comment on above: Ordered: 01/22/2022 End: 09-18-2024 US ABD RIGHT UPPER QUADRANT US ABD RIGHT UPPER QUADRANT Radiology Routine Fatty liver 1 Occurrences starting 08/20/2023 until 09/18/2024 [facility] Work Phone: Comment on above: 1 Occurrences starting 08/20/2023 until 09/18/2024 End: 09-18-2024 Us abdominal real time w/image limited US ABD SPLEEN Radiology Routine Fatty liver 1 Occurrences starting 08/20/2023 until 09/18/2024 [facility] Work Phone: Comment on above: 1 Occurrences starting 08/20/2023 until 09/18/2024 [facility] Immunizations Immunization Date Immunization Notes Care Provider [facility] 07-30-2022 influenza, injectabl e, quadrivalent, contains preservative Babatunde [place] MD Work Phone: [facility] 07-30-2022 influenza virus vaccine, unspecified formulation Babatunde Kerr MD Work Phone: [facility] 08-18-2019 tetanus toxoid, redu zak diphtheria toxoid, and acellular pertussis vaccine, adsorbed Babatunde Kerr MD Work Phone: [facility] 07-17-2019 influenza, seasonal, injectable Babatunde Kerr MD Work Phone: [facility] Work Phone: 07-27-2015 influenza, seasonal, injectable Babatunde Kerr MD Work Phone: [facility] Work Phone: 08-08-2012 influenza virus vaccine, unspecified formulation Babatunde Kerr MD Work Phone: [facility] Work Phone: 08-29-2009 tetanus toxoid, redu zak diphtheria toxoid, and acellular pertussis vaccine, adsorbed Babatunde Kerr MD Work Phone: [facility] 07-05-2009 influenza virus vaccine, unspecified formulation Babatunde Kerr MD Work Phone: [facility] Work Phone: Payers Date Payer Category Payer [employer] [place] [employer] [facility] BLUE CARD PPO OOS [id number] 2002 Unknown [employer] BLUE CARD PPO OOS [id number] 2002-Present [phone] [address] [place] [address] PPO [id number] 2002 Unknown [id number] 2002 Unknown [id number] Social History Date Type Detail Facility Start: 12-09-2013 End: 08-30-2022 Tobacco smoking status NHIS Never smoked tobacco [facility] Start: 12-09-2013 End: 08-30-2022 Tobacco use and exposure User of smokeless tobacco [facility] History of tobacco use [facility] Start: 10-25-2021 End: 12-20-2024 Alcohol intake Current drinker of alcohol (finding) [facility] Start: 08-07-2020 History SDOH Alcohol Frequency 4 [facility] Start: 09-01-2020 End: 07-15-2021 History SDOH Alcohol Std Drinks 2 [facility] Start: 08-07-2020 History SDOH Alcohol Comment 3-4 glasses bourbon per week [facility] Start: 08-17-2019 History SDOH Social Connections Phone 5 [facility] Start: 09-01-2020 History SDOH Social Connections Muslim 98 [facility] Start: 08-17-2019 End: 07-15-2021 History SDOH Social Connections Membership 1 [facility] Start: 08-17-2019 End: 02-14-2020 History SDOH Social Connections Living 3 [facility] Start: 09-01-2020 Education 15 [facility] Start: 1970 Sex Assigned At Male C [facility] Start: 01-08-2022 End: 08-30-2022 Exposure to SARS-CoV-2 (event) Not sure [facility] Start: 08-30-2022 Tobacco Comment 1 can per week [facility] Start: 09-01-2020 End: 06-24-2023 History of Social function [facility] Start: 09-01-2020 End: 06-24-2023 Social connection and isolation panel [facility] Frequency of Communi cation with Friends and Family Not on file [facility] How many standard dr inks containing alcohol do you have on a typical day? 3 or 4 [facility] Do you feel stress - tense, restless, nervous, or anxious, or unable to sleep at night because your mind is troubled all the time - these days [OSQ] Not at all [facility] (I/We) worried geronimo er (my/our) food would run out before (I/we) got money to buy more. Never true [facility] In the past 12 month s, was there a time when you were not able to pay the mortgage or rent on time? No [facility] Start: 09-01-2020 Gender identity Identifies as male gender (finding) [facility] Start: 09-01-2020 Sexual orientation Heterosexual (fin ding) [facility] Do you belong to any clubs or organizations such as yarsani groups, [employer], [employer] or athletic groups, or school groups? Yes [facility] Are you now , , , , never or living with a partner? [facility] How often to you hav e a drink containing alcohol? 2-3 time sa week [facility] Do you feel stress - tense, restless, nervous, or anxious, or unable to sleep at night because your mind is troubled all the time - these days [OSQ] To some extent [facility] How often do you hav e 6 or more drinks on 1 occasion? Weekly [facility] Functional Status Date Assessment Result Facility 06-24-[address] score Ser [address] Calc.FibroSure 0.26 [facility] Comment on above: Order Comment: Speci men Type: BLOOD SPECIMEN Ordering Facility: [facility] Address: [address] [place] [address] Performed By: #### L IVFIB #### [facility] CLIA [id number] [address] [place] [address] 06-24-2025 Necroinflammatory ac t score SerPl 0.37 [facility] Comment on above: Order Comment: Speci men Type: BLOOD SPECIMEN Ordering Facility: [facility] Address: [address] [place] [address] Performed By: #### L IVFIB #### [facility] CLIA [id number] [address] [place] [address] [facility] 02-25-2014 Are you deaf, or do you have serious difficulty hearing No 02/25/2014 1:26 PM EDT Pilar Mcdermott LPN No [facility] 02-25-2014 Are you blind, or do you have serious difficulty seeing, even when wearing glasses No 02/25/2014 1:26 PM EDT Pilar Mcdermott LPN No [facility] 02-25-2014 Do you have serious difficulty walking or climbing stairs No 02/25/2014 1:26 PM EDT Pilar Mcdermott LPN No [facility] 02-25-2014 Do you have difficul ty dressing or bathing No 02/25/2014 1:26 PM EDT Pilar Mcdermott LPN No [facility] 02-25-2014 Because of a physica l, mental, or emotional condition, do you have difficulty doing errands alone such as visiting a physician's office or shopping No 02/25/2014 1:26 PM EDT Pilar Mcdermott LPN No [facility] Mental Status Date Assessment Result Facility 02-25-2014 Because of a physica l, mental, or emotional condition, do you have serious difficulty concentrating, remembering, or making decisions No 02/25/2014 1:26 PM EDT Pilar Mcdermott LPN [facility] Clinical Notes 01-08-2022 to 06-24-2025 Telephone Encounter - Babatunde Kerr MD - 01/07/2025 11:13 AM EDTTelephone Encounter - Babatunde Kerr MD - 01/07/2025 11:13 AM EDTPatient InstructionsPatient InstructionsPatient Instructions Note Date & Type Note Facility 06-24-2025 Note HNO ID: [id number] Author: BABATUNDE KERR MD Service: ? Author [...] problems NECK: Negat (more content not included)... [facility] 01-07-2025 Telephone encounter Note The following approved medication requests have been transmitted electronically. Requested Prescriptions Signed Prescriptions Disp Refills Fenofibrate (LOFIBRA) 54 mg tablet 90 tablet 1 Sig: Take 1 tablet by mouth once daily. Fenofibrate (LOFIBRA) 54 mg tablet 30 tablet 0 Sig: Take 1 tablet by mouth once daily. Babatunde Kerr MD [facility] 01-07-2025 Miscellaneous Notes The following approved [...] for 30 day supply to local pharmacy [facility] and 90 day supply to [facility]. [...] in the liver. documented in this encounter [facility] 01-07-2025 Telephone encounter Note Pt notified and ok with adding medication. Asking for 30 day supply to local pharmacy [facility] and 90 day supply to [facility]. Ashley Barber MA [facility] 12-31-2024 Instructions Doris Guadalupe APRN.OLIVIA - 12/31/2024 3:46 PM EDT Blood work in 6 months Schedule fibroscan for the same day as Follow up in 6 months, scan to be done first (must be fasting for 3 hours prior) documented in this encounter [facility] 12-31-2024 History of Present illness Narrative VIRTUAL VISIT PROGRESS NOTE This is a virtual visit using [employer] Zoom Video Visit. It required patient-provider interaction for the medical decision making as documented below. I have communicated my name and active licensure. The patient's identity and physical location were verified at the time of this visit. Either the patient or their legal hobbies and crafts sales representative has been informed of the risks and [...] which included preparing to see the patient, [id number]-[id number] patient care, completing clinical documentation, obtaining and/or reviewing separately obtained history, performing a medically appropriate examination, counseling and educating the patient/family/caregiver, ordering medications, tests, or procedures, and communicating results to the patient/family/caregiver Doris Guadalupe APRN.CNP documented in this encounter [facility] 12-31-2024 Note HNO ID: [id number] Author: DORIS GUADALUPE APRN.CNP Service: ? Author Type: Nurse Practitioner Type: Progress Notes Filed: 12/31/2024 15:54 Note Text: VIRTUAL VISIT PROGRESS NOTE This is a virtual visit using [employer] Video Visit. It required patient-provider interaction for the medical decision making as documented below. I have communicated my name and active licensure. The patient's identity and physical location were verified at the time of this visit. Either the patient or their legal hobbies and crafts sales representative has been informed of the risks and [...] Itchy, watery eyes (more content not included)... [facility] 12-21-2024 Telephone encounter Note Left message for patient's to contact office. Darcie Montoya MA [facility] 12-21-2024 Telephone encounter Note ----- Message from Babatunde Kerr MD sent at 12/20/2024 7:47 PM EDT ----- Routing information can be restored upon returning to the encounter [facility] 12-20-2024 Telephone encounter Note Let patient [...] the inflammation going on in the liver. [facility] 12-20-2024 Instructions Mary Ann Carlos PA-C - 12/20/2024 7:17 AM EDT - Complete your non-fasting lab tests as scheduled. - Continue working on weight management. - Follow up with your gizzard puller as scheduled. - Refills for your medications have been sent to [facility]. - We will call you with the lab results. documented in this encounter [facility] 12-20-2024 Note HNO ID: [id number] Author: MARY ANN CARLOS PA-C Service: ? Author Type: Physician E/M Engineer Type: Progress Notes Filed: 12/20/2024 07:38 Note [...] 12/20/2025 Diabetes Screenin (more content not included)... [facility] 12-20-2024 History of Present illness Narrative [...] patient consented to the use of ambient TrenStar software for draft documentation of the visit consistent with [facility] Notice of Privacy Practices. documented in this encounter [facility] 10-27-2024 Telephone encounter Note Sleep med consult placed [facility] 10-27-2024 Miscellaneous Notes Sleep med consult placed documented in this encounter [facility] 09-23-2024 Telephone encounter Note Prescription Refill [...] Roth LPN September 23, 2024 9:40 AM [facility] 09-23-2024 Miscellaneous Notes Prescription Refill Information [...] 2024 9:40 AM documented in this encounter [facility] 07-05-2024 Telephone encounter Note Contacted . Darcie Montoya MA [facility] 07-05-2024 Miscellaneous Notes Contacted . Darcie [...] get the US with elastograghy done a [facility] if ok with it? FIB-4 Calculation: 2.76 at 06/29/2024 8:40 AM Calculated from: SGOT/AST: 88 U/L at 06/29/2024 8:40 AM SGPT/ALT: 87 U/L at 06/29/2024 8:40 AM Platelets: 188 k/uL at 06/29/2024 8:40 AM Age: 54 years documented in this encounter [facility] 07-02-2024 Telephone encounter Note Left additional message/ sent my chart message. Darcie Montoya MA [facility] 06-30-2024 Telephone encounter Note Left vm for patient to return call to nurse for provider's message. [facility] 06-30-2024 Telephone encounter Note Images from [...] get the US with elastograghy done a [facility] if ok with it? FIB-4 Calculation: 2.76 at 06/29/2024 8:40 AM Calculated from: SGOT/AST: 88 U/L at 06/29/2024 8:40 AM SGPT/ALT: 87 U/L at 06/29/2024 8:40 AM Platelets: 188 k/uL at 06/29/2024 8:40 AM Age: 54 years [facility] 06-29-2024 Instructions Babatunde Kerr MD - 06/29/2024 8:27 AM EDT Please get labs done on or after 12/17/2024 prior to your next visit. documented in this encounter [facility] 06-29-2024 History of Present illness Narrative [...] Babatunde Kerr MD documented in this encounter [facility] 06-09-2024 Instructions Raghu Maldonado II, OD [...] its relevant components. documented in this encounter [facility] 06-09-2024 History of Present illness Narrative [...] its relevant components. documented in this encounter [facility] 01-16-2024 Miscellaneous Notes Patient Allie returned call and said she has had enough from [facility] pharmacy. She said from right now just leave the rx as it is so she can get the short term rx picked up at [facility], she will pay out of pocket for them. She was told [facility] rx sent today and sending them out. Contacted pharmacy at [facility] and spoke with Lopez Mena and [...] and is asking for a return call. [phone] documented in this encounter [facility] 01-14-2024 Miscellaneous Notes Patient's calling for 90 day supply refills to [facility]. These have already been sent. Shantell M Lentine, RN documented in this encounter [facility] 01-12-2024 Miscellaneous Notes The following approved [...] Darcie Montoya MA documented in this encounter [facility] 01-08-2024 Miscellaneous Notes In review of [...] Ann Galvan MA. documented in this encounter [facility] 08-25-2023 Miscellaneous Notes Patient has been [...] Last refill: 05/2023 documented in this encounter [facility] 08-25-2023 Miscellaneous Notes Patient has been [...] Last refill: 04/2023 documented in this encounter [facility] 08-22-2023 History of Present illness Narrative Patient fasting for 3 hours:Yes Fibroscan was performed on August 22, 2023, by Erica Milan LPN and results are interpreted by Doris Guadalupe APRN.SECURITIES TRADER Diagnosis: Fatty liver Please refer to get [...] consider further testing to confirm. Doris Guadalupe APRN.[facility] NAFLD Fibroscan Fibrosis Risk <7 kPA = [...] Int J Clin Exp Med. 2015 Jun 15;8(10):55806-98. PMID: [id number]; PMCID: [id number]. Wesley Galarza, Paulina NOÉ, Natividad M, Stephanie F, Farzaneh J, Deb O, Cain F, Sudeep M, Hector G, Matthew A, Leatha E, Leigha L, Nolberto G, Obdulio A, Lizandro U, Tracy S, Jamil P, Francois V, Alvarado V, Deondre Galarza, Brisa ESPAÑA. Refining the Baveno elastography criteria for the definition of compensated advanced chronic liver disease. J Hepatol. 2020;74(5):4014-6570. doi: 10.1016/j.jhep.2020.11.050. Epub 2019Sep 06. PMID: 71710003. documented in this encounter [facility] 08-20-2023 Instructions Doris Guadalupe APRN.OLIVIA - [...] in 6 months documented in this encounter [facility] 08-20-2023 History of Present illness Narrative [...] results, and coordinating care and coordinating care. Dorsi Guadalupe APRN.OLIVIA August 20, 2023 8:03 AM documented in this encounter [facility] 07-09-2023 Miscellaneous Notes The following approved medication requests have been transmitted electronically. Requested Prescriptions Signed Prescriptions Disp Refills sildenafil (VIAGRA) 100 mg tablet 30 tablet 1 Sig: Take one tab by mouth daily if needed. Authorizing Provider: BABATUNDE KERR MD Last refill 03/22/19 Qty: 30 with 1 refill [facility] 06/25/23 NOV 12/25/23 Lior Roth LPN documented in this encounter [facility] 05-16-2023 Miscellaneous Notes Left a detailed [...] Tanisha Johnson LPN documented in this encounter [facility] 04-07-2023 Miscellaneous Notes Faxed to [facility]. Darcie Montoya MA Order, CPAP test and office note ready to be faxed to [facility]. [facility] 08/30/2022 NOV 06/25/23 documented in this encounter [facility] 04-07-2023 Miscellaneous Notes Patient has been [...] Narda Reyes MA documented in this encounter [facility] 01-16-2023 Miscellaneous Notes Noted. Malathi from [facility] calls and states that patient is not eligible to get a new CPAP until August of 2023. At that time new prescription and office notes can be faxed to [facility]. Malathi states that she already left a message for patient on voicegail regarding this. Evelyn Monte RN documented in this encounter [facility] 01-15-2023 Miscellaneous Notes Faxed. Darcie Montoya MA CPAP study and script ready to be faxed to [facility]. documented in this encounter [facility] 11-06-2022 Miscellaneous Notes Patient has been [...] Tanisha Johnson LPN documented in this encounter [facility] 11-06-2022 Miscellaneous Notes Patient has been [...] for medication: Not applicable Thank you. Tanisha Johsnon LPN documented in this encounter [facility] 10-18-2022 Miscellaneous Notes Last office visit: 08/30/22 F/u scheduled: 03/14/23 Ashley Barber Ma documented in this encounter [facility] 09-02-2022 Miscellaneous Notes The following approved [...] for 6 months. documented in this encounter [facility] 04-26-2022 Miscellaneous Notes Patient has been [...] Last refill: 01/2022 documented in this encounter [facility] 02-26-2022 Miscellaneous Notes Patient phones requesting refills as follows: Pending Prescriptions Disp Refills ATORVASTATIN 10 MG TABLET 30 tablet 1 Sig: Take 1 tablet by mouth daily at bedtime. For cholesterol. ANAIS: No [facility] 01/18/22 NOV 07/19/22 Please review and advise. Regina Wolff LPN documented in this encounter [facility] 01-28-2022 Miscellaneous Notes notified and voiced understanding. Darcie Montoya MA Let patient know cortisol level was ok and repeat electrolyte panel showed Sodium and Potassium were ok. documented in this encounter [facility] 01-22-2022 Miscellaneous Notes patient and spouse [...] if still drinking a few glasses of Kinta a week this can also contribute and [...] level. Orders placed. documented in this encounter [facility] 01-18-2022 History of Present illness Narrative [...] Babatunde Kerr MD documented in this encounter [facility] 01-08-2022 Miscellaneous Notes The following approved [...] Regina Vann LPN documented in this encounter [facility] Evaluation note Diagnosis Ulcer of esophagus without bleeding [facility] Diagnosis Well adult exam- Primary [...] or maintaining sleep [facility] Diagnosis Hyponatremia- Primary Hyposmolality and/or hyponatremia Hyperkalemia Hyperpotassemia [facility] Diagnosis Hyponatremia Hyposmolality and/or hyponatremia Hyperkalemia Hyperpotassemia [facility] Diagnosis Hyperlipidemia, mixed- Primary Mixed hyperlipidemia Hyponatremia Hyposmolality and/or hyponatremia Hyperkalemia Hyperpotassemia Elevated LFTs Other abnormal blood chemistry Fatty liver Other chronic nonalcoholic liver disease [facility] Diagnosis KATHY (obstructive sleep apnea)- Primary Obstructive sleep apnea (adult) (pediatric) [facility] Diagnosis KATHY (obstructive sleep apnea) Obstructive sleep apnea (adult) (pediatric) [facility] Diagnosis KATHY (obstructive sleep apnea)- Primary Obstructive sleep apnea (adult) (pediatric) [facility] Diagnosis Fatty liver- Primary Other chronic nonalcoholic liver disease [facility] Diagnosis Fatty liver- Primary Other chronic nonalcoholic liver disease [facility] Diagnosis Hyponatremia Hyposmolality and/or hyponatremia Hyperkalemia Hyperpotassemia [facility] Diagnosis Erectile dysfunction, unspecified erectile dysfunction type GERD without esophagitis Esophageal reflux MUNIZ (nonalcoholic steatohepatitis) Other chronic nonalcoholic liver disease Essential hypertension Unspecified essential hypertension [facility] Diagnosis Erectile dysfunction, unspecified erectile dysfunction type GERD without esophagitis Esophageal reflux MUNIZ (nonalcoholic steatohepatitis) Other chronic nonalcoholic liver disease Essential hypertension Unspecified essential hypertension [facility] Diagnosis GERD without esophagitis Esophageal reflux [facility]* Diagnosis Myopia, bilateral- Primary Myopia Regular astigmatism of left eye Regular astigmatism Presbyopia Vitreous floaters of both eyes Round retinal hole, right [facility] Diagnosis Well adult exam- Primary [...] of other medications documented in this encounter [facility] note* Diagnosis MUNIZ (nonalcoholic steatohepatitis)- Primary Other chronic nonalcoholic liver disease documented in this encounter [facility] note* Diagnosis Erectile dysfunction, unspecified erectile dysfunction type documented in this encounter [facility] note* Diagnosis KATHY (obstructive sleep apnea)- Primary Obstructive sleep apnea (adult) (pediatric) documented in this encounter [facility] note* Diagnosis Essential hypertension- Primary Unspecified essential [...] chewing tobacco, uncomplicated documented in this encounter [facility] note* Diagnosis Fatty liver- Primary Other chronic nonalcoholic liver disease documented in this encounter [facility] for referral (narrative)* Diagnostic Procedure Only (Routine) - Authorized Specialty Diagnoses / Procedures Referred By Joshua antoine Referred To Contact [facility] Diagnoses Fatty liver Procedures US ABD SPLEEN US ABDOMINAL REAL TIME W/IMAGE LIMITED Doris Guadalupe APRN.CNP [address] [phone] [facility] [place] [address] Referral ID Status Reason Start Date Expiration Date Visits Requested Visits Authorized [id number] Authorized Auto-Generat ed Referral 3 09/18/2024 1 1 * Diagnostic Procedure Only (Routine) - Authorized Specialty Diagnoses / Procedures Referred By Joshua antoine Referred To Contact [facility] Diagnoses Fatty liver Procedures US ABD RIGHT UPPER QUADRANT US ABDOMINAL REAL TIME W/IMAGE LIMITED Dorsi Guadalupe APRN.CNP [address] [phone] [place] [address] Referral ID Status Reason Start Date Expiration Date Visits Requested Visits Authorized [id number] Authorized Auto-Generat ed Referral 3 09/18/2024 1 1 * Outpatient Procedure (Routine) - New Request Specialty Diagnoses / Procedures Referred By Contact Referred To Contact [facility] Diagnoses Fatty liver Procedures DDI VIBRATION CONTROLLED TRANSIENT ELASTOGRAPHY (VCTE) LIVER ELASTOGRAPHY W/O IMAG W/I&R Doris Guadalupe APRN.SECURITIES TRADER [address] [id number] Doris Guadalupe APRN.SECURITIES TRADER [address] [place] [id number] Referral ID Status Reason Start Date Expiration Date Visits Requested Visits Authorized [id number] New Request Auto-Generat ed Referral 3 08/20/2024 1 1 [facility] Outpatient Procedure (Routine) - New Request Specialty Diagnoses / Procedures Referred By Contact Referred To Contact [facility] Diagnoses Fatty liver Procedures DDI VIBRATION CONTROLLED TRANSIENT ELASTOGRAPHY (VCTE) LIVER ELASTOGRAPHY W/O IMAG W/I&R Doris Guadalupe, PERNELL.SECURITIES TRADER [address] 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 Advance Directive(s) 12/06/2019 12:06 PM Advance Directive(s) 09/27/2019 10:00 AM Advance Directive(s) 02/24/2018 6:01 AM Reason for Referral Specialty Diagnoses / Procedures Referred By Joshua antoine Referred To Contact Diagnoses KATHY (obstructive sleep apnea) Procedures CONSULT TO SLEEP MEDICINE - ADULT OFFICE/OUTPATIENT [facility] 60 MINUTES Babatunde Kerr MD [address] [place] [address] Referral ID Status Reason Start Date Expiration Date Visits Requested Visits Authorized [id number] Authorized PCP Requested Referral 10/27/2024 10/27/2025 1 1 Additional Source Comments (unrecognized sect ion and content) No Status Records FoundNo Status Records FoundNo Status Records Found INFORMATION SOURCE (unrecogn ized section and content) DATE CREATED AUTHOR 03/18/2018 [facility] DATE CREATED AUTHOR AUTHOR'S ORGANIZ ATION 09/16/2018 [facility] DATE CREATED AUTHOR AUTHOR'S ORGANIZ ATION 07/01/2025 [facility] Source Comments (unrecognize d section and content) In the event this informatio n is protected by the Federal Confidentiality of Alcohol and Drug Abuse Patient Records regulations: The Federal rules restrict any use of the information to criminally investigate or prosecute any alcohol or drug abuse patient.[facility] the event this information is protected by the Federal Confidentiality of Alcohol and Drug Abuse Patient Records regulations: The Federal rules restrict any use of the information to criminally investigate or prosecute any alcohol or drug abuse patient.[facility] HospitalIn the event this information is protected by the Federal Confidentiality of Alcohol and Drug Abuse Patient Records regulations: The Federal rules restrict any use of the information to criminally investigate or prosecute any alcohol or drug abuse patient.[facility] HospitalIn the event this information is protected by the Federal Confidentiality of Alcohol and Drug Abuse Patient Records regulations: The Federal rules restrict any use of the information to criminally investigate or prosecute any alcohol or drug abuse patient.[facility] HospitalIn the event this information is protected by the Federal Confidentiality of Alcohol and Drug Abuse Patient Records regulations: The Federal rules restrict any use of the information to criminally investigate or prosecute any alcohol or drug abuse patient.[facility] HospitalIn the event this information is protected by the Federal Confidentiality of Alcohol and Drug Abuse Patient Records regulations: The Federal rules restrict any use of the information to criminally investigate or prosecute any alcohol or drug abuse patient.[facility] HospitalIn the event this information is protected by the Federal Confidentiality of Alcohol and Drug Abuse Patient Records regulations: The Federal rules restrict any use of the information to criminally investigate or prosecute any alcohol or drug abuse patient.[facility] HospitalIn the event this information is protected by the Federal Confidentiality of Alcohol and Drug Abuse Patient Records regulations: The Federal rules restrict any use of the information to criminally investigate or prosecute any alcohol or drug abuse patient.[facility] HospitalIn the event this information is protected by the Federal Confidentiality of Alcohol and Drug Abuse Patient Records regulations: The Federal rules restrict any use of the information to criminally investigate or prosecute any alcohol or drug abuse patient.[facility] HospitalIn the event this information is protected by the Federal Confidentiality of Alcohol and Drug Abuse Patient Records regulations: The Federal rules restrict any use of the information to criminally investigate or prosecute any alcohol or drug abuse patient.[facility] HospitalIn the event this information is protected by the Federal Confidentiality of Alcohol and Drug Abuse Patient Records regulations: The Federal rules restrict any use of the information to criminally investigate or prosecute any alcohol or drug abuse patient.[facility] HospitalIn the event this information is protected by the Federal Confidentiality of Alcohol and Drug Abuse Patient Records regulations: The Federal rules restrict any use of the information to criminally investigate or prosecute any alcohol or drug abuse patient.[facility] HospitalIn the event this information is protected by the Federal Confidentiality of Alcohol and Drug Abuse Patient Records regulations: The Federal rules restrict any use of the information to criminally investigate or prosecute any alcohol or drug abuse patient.[facility] HospitalIn the event this information is protected by the Federal Confidentiality of Alcohol and Drug Abuse Patient Records regulations: The Federal rules restrict any use of the information to criminally investigate or prosecute any alcohol or drug abuse patient.[facility] HospitalIn the event this information is protected by the Federal Confidentiality of Alcohol and Drug Abuse Patient Records regulations: The Federal rules restrict any use of the information to criminally investigate or prosecute any alcohol or drug abuse patient.[facility] HospitalIn the event this information is protected by the Federal Confidentiality of Alcohol and Drug Abuse Patient Records regulations: The Federal rules restrict any use of the information to criminally investigate or prosecute any alcohol or drug abuse patient.[facility] HospitalIn the event this information is protected by the Federal Confidentiality of Alcohol and Drug Abuse Patient Records regulations: The Federal rules restrict any use of the information to criminally investigate or prosecute any alcohol or drug abuse patient.[facility] HospitalIn the event this information is protected by the Federal Confidentiality of Alcohol and Drug Abuse Patient Records regulations: The Federal rules restrict any use of the information to criminally investigate or prosecute any alcohol or drug abuse patient.[facility] HospitalIn the event this information is protected by the Federal Confidentiality of Alcohol and Drug Abuse Patient Records regulations: The Federal rules restrict any use of the information to criminally investigate or prosecute any alcohol or drug abuse patient.[facility] HospitalIn the event this information is protected by the Federal Confidentiality of Alcohol and Drug Abuse Patient Records regulations: The Federal rules restrict any use of the information to criminally investigate or prosecute any alcohol or drug abuse patient.[facility] HospitalIn the event this information is protected by the Federal Confidentiality of Alcohol and Drug Abuse Patient Records regulations: The Federal rules restrict any use of the information to criminally investigate or prosecute any alcohol or drug abuse patient.[facility] HospitalIn the event this information is protected by the Federal Confidentiality of Alcohol and Drug Abuse Patient Records regulations: The Federal rules restrict any use of the information to criminally investigate or prosecute any alcohol or drug abuse patient.[facility] HospitalIn the event this information is protected by the Federal Confidentiality of Alcohol and Drug Abuse Patient Records regulations: The Federal rules restrict any use of the information to criminally investigate or prosecute any alcohol or drug abuse patient.[facility] HospitalIn the event this information is protected by the Federal Confidentiality of Alcohol and Drug Abuse Patient Records regulations: The Federal rules restrict any use of the information to criminally investigate or prosecute any alcohol or drug abuse patient.[facility] HospitalIn the event this information is protected by the Federal Confidentiality of Alcohol and Drug Abuse Patient Records regulations: The Federal rules restrict any use of the information to criminally investigate or prosecute any alcohol or drug abuse patient.[facility] HospitalIn the event this information is protected by the Federal Confidentiality of Alcohol and Drug Abuse Patient Records regulations: The Federal rules restrict any use of the information to criminally investigate or prosecute any alcohol or drug abuse patient.[facility] HospitalIn the event this information is protected by the Federal Confidentiality of Alcohol and Drug Abuse Patient Records regulations: The Federal rules restrict any use of the information to criminally investigate or prosecute any alcohol or drug abuse patient.[facility] HospitalIn the event this information is protected by the Federal Confidentiality of Alcohol and Drug Abuse Patient Records regulations: The Federal rules restrict any use of the information to criminally investigate or prosecute any alcohol or drug abuse patient.[facility] HospitalIn the event this information is protected by the Federal Confidentiality of Alcohol and Drug Abuse Patient Records regulations: The Federal rules restrict any use of the information to criminally investigate or prosecute any alcohol or drug abuse patient.[facility] HospitalIn the event this information is protected by the Federal Confidentiality of Alcohol and Drug Abuse Patient Records regulations: The Federal rules restrict any use of the information to criminally investigate or prosecute any alcohol or drug abuse patient.[facility] HospitalIn the event this information is protected by the Federal Confidentiality of Alcohol and Drug Abuse Patient Records regulations: The Federal rules restrict any use of the information to criminally investigate or prosecute any alcohol or drug abuse patient.[facility] HospitalIn the event this information is protected by the Federal Confidentiality of Alcohol and Drug Abuse Patient Records regulations: The Federal rules restrict any use of the information to criminally investigate or prosecute any alcohol or drug abuse patient.[facility] HospitalIn the event this information is protected by the Federal Confidentiality of Alcohol and Drug Abuse Patient Records regulations: The Federal rules restrict any use of the information to criminally investigate or prosecute any alcohol or drug abuse patient.[facility] HospitalIn the event this information is protected by the Federal Confidentiality of Alcohol and Drug Abuse Patient Records regulations: The Federal rules restrict any use of the information to criminally investigate or prosecute any alcohol or drug abuse patient.[facility] HospitalIn the event this information is protected by the Federal Confidentiality of Alcohol and Drug Abuse Patient Records regulations: The Federal rules restrict any use of the information to criminally investigate or prosecute any alcohol or drug abuse patient.[facility] Reason for Visit (unrecogniz ed section [...] Care Teams (unrecognized sec tion and content) Consumer Affairs Director Relationship Specialty Start Date End Date Babatunde Kerr MD [address] [facility] [place] [address] PCP - General Family Practice 02/07/18 Consumer Affairs Director Relationship Specialty Start Date End Date Babatunde Kerr MD [facility] [facility] [place] [address] PCP - General Family Practice 02/07/18 Consumer Affairs Director Relationship Specialty Start Date End Date Babatunde Kerr MD [address] [place] [address], [place] [address] PCP - General Family Practice 02/07/18 Consumer Affairs Director Relationship Specialty Start Date End Date Babatunde Kerr MD [address] [place] [address], [place] [address] PCP - General Family Practice 02/07/18 Consumer Affairs Director Relationship Specialty Start Date End Date Babatunde Kerr MD [address] [place] [address], [place] [address] PCP - General Family Practice 02/07/18 Consumer Affairs Director Relationship Specialty Start Date End Date Babatunde Kerr MD [address] [place] [address], [place] [address] PCP - General Family Medicine 02/07/18 Consumer Affairs Director Relationship Specialty Start Date End Date Babatunde Kerr MD [address] [place] [address], [place] [address] PCP - General Family Medicine 02/07/18 Consumer Affairs Director Relationship Specialty Start Date End Date Babatunde Kerr MD [address] [place] [address], [place] [address] PCP - General Family Medicine 02/07/18 Consumer Affairs Director Relationship Specialty Start Date End Date Babatunde Kerr MD [address] [facility] [place] [address] PCP - General Family Medicine 02/07/18 Consumer Affairs Director Relationship Specialty Start Date End Date Babatunde Kerr MD [address] [place] [address] PCP - General Family Medicine 02/07/18 Consumer Affairs Director Relationship Specialty Start Date End Date Babatunde Kerr MD [address] [place] [address] PCP - General Family Medicine 02/07/18 Consumer Affairs Director Relationship Specialty Start Date End Date Babatunde Kerr MD [address] [place] [address] PCP - General Family Medicine 02/07/18 Consumer Affairs Director Relationship Specialty Start Date End Date Babatunde Kerr MD [address] [place] [address] PCP - General Family Medicine 02/07/18 Consumer Affairs Director Relationship Specialty Start Date End Date Babatunde Kerr MD [address] [place] [address] PCP - General Family Medicine 02/07/18 Consumer Affairs Director Relationship Specialty Start Date End Date Babatunde Kerr MD [address] [place] [address] PCP - General Family Medicine 02/07/18 Consumer Affairs Director Relationship Specialty Start Date End Date Babatunde Kerr MD [address] [place] [address] PCP - General Family Medicine 02/07/18 Consumer Affairs Director Relationship Specialty Start Date End Date Babatunde Kerr MD [address] [place] [address] PCP - General Family Medicine 02/07/18 Consumer Affairs Director Relationship Specialty Start Date End Date Babatunde Kerr MD [address] [place] [address] PCP - General Family Medicine 02/07/18 Consumer Affairs Director Relationship Specialty Start Date End Date Babatunde Kerr MD [address] [place] [address] PCP - General Family Medicine 02/07/18 Consumer Affairs Director Relationship Specialty Start Date End Date Babatunde Kerr MD [address] [place] [address] PCP - General Family Medicine 02/07/18 Consumer Affairs Director Relationship Specialty Start Date End Date Babatunde Kerr MD [address] [place] [address] PCP - General Family Medicine 02/07/18 Consumer Affairs Director Relationship Specialty Start Date End Date Babatunde Kerr MD [address] [place] [address] PCP - General Family Medicine 02/07/18 Consumer Affairs Director Relationship Specialty Start Date End Date Babatunde Kerr MD [address] [place] [address] PCP - General Family Medicine 02/07/18 Consumer Affairs Director Relationship Specialty Start Date End Date Babatunde Kerr MD [address] [place] [address] PCP - General Family Medicine 02/07/18 Valentina Chatman, PERNELL.SECURITIES TRADER [address] [place] [address] Supervisor Finishing Department Family Medicine 09/04/24 Mary Ann Carlos PA-C [address] [place] [address] Supervisor Finishing Department Family Medicine 09/04/24 Consumer Affairs Director Relationship Specialty Start Date End Date Babatunde Kerr MD [address] [place] [address] PCP - General Family Medicine 02/07/18 Valentina Chatman, PERNELL.SECURITIES TRADER [address] [place] [address] Supervisor Finishing Department Family Medicine 09/04/24 Mary Ann Carlos PA-C [address] [place] [address] Supervisor Finishing Department Family Medicine 09/04/24 Consumer Affairs Director Relationship Specialty Start Date End Date Babatunde Kerr MD [address] [place] [address] PCP - General Family Medicine 02/07/18 Valentina Chatman, INSTRUCTOR PHYSICAL.SECURITIES TRADER [address] [place] [address] Supervisor Finishing Department Family Medicine 09/04/24 Mary Ann Carlos PA-C [address] [place] [address] Supervisor Finishing Department Family Medicine 09/04/24 Consumer Affairs Director Relationship Specialty Start Date End Date Babatunde Kerr MD [address] [place] [address] PCP - General Family Medicine 02/07/18 Valentina Chatman APRN.SECURITIES TRADER [address] [place] [address] [facility] 09/04/24 Mary Ann Carlos PA-C [address] [place] [address] [facility] 09/04/24 Consumer Affairs Director Relationship Specialty Start Date End Date Babatunde Kerr MD [address] [place] [address] PCP - General Family Medicine 02/07/18 Valentina Chatman APRN.SECURITIES TRADER [address] [place] [address] [facility] 09/04/24 Mary Ann Carlos PA-C [address] [place], [place] [address] [facility] 09/04/24 FOR RECORDS PERTAINING TO PATIENTS WHO [...] BE BASED ON THE PRIMARY CLINICAL RECORDS. [employer] provides no warranty or guarantee of the accuracy or completeness of information in this document.
[2025-08-21 19:58] LABS: Mucous, Urine 0 SEEN /hpf (<or=2+)
[2025-08-21 20:00] LABS: Color, Urine Yellow (Yellow); Glucose, Dipstick Normal (Normal); Ketone-Dipstick Negative (Negative); Leukocyte Esterase-Dipstick Negative /ul (Negative); Nitrite-Dipstick Negative (Negative); Occult Blood-Urine Negative /ul (Negative); Protein-Dipstick Negative (Negative); Specific Gravity, Urine 1.015 (1.002-1.030); Urine Bilirubin Dipstick Negative (Negative)
[2025-08-21 20:11] LABS: Red Blood Cells-Urine 0-5 SEEN /hpf (0-5); Squamous Epithelial Cells - UA 0-5 SEEN /hpf (0-5)
[2025-08-21 20:33] LABS: Creatinine, Urine (random) 97.30 mg/dL (39.00-259.00)
[2025-08-21] MEDS: Lactated Ringers 1,000 ML 999 ML IV (21:40)
[2025-08-21] MEDS: Lactated Ringers 1,000 ML 100 ML IV (22:16)
[2025-08-21] MEDS: Heparin Injection (Vial) 5,000 UNIT/ML VIAL 5000 UNIT SC (23:30)
[2025-08-22] VITALS (11 sets, daily range): BP systolic 88–121; BP diastolic 52–69; PULSE 71–82; RESP 15–20; TEMP 36.8–37.1; O2SAT 96–98
[2025-08-22 01:24] LABS: Anion Gap 14 (5-15); BUN 23 mg/dL (4-19); BUN/Creat Ratio 7.8 RATIO (10-20); Calcium,Total 8.8 mg/dL (7.6-11.0); Carbon Dioxide 21.8 mmol/L (21.0-32.0); Chloride 86 mmol/L (98-108); Estimated Creatinine Clearance 34.18 ml/min (50-250); Glucose 118 mg/dL (70-99); Potassium 3.6 mmol/L (3.3-5.1)
[2025-08-22 01:31] LABS: Osmolality, Serum 272 mOsm/KG (275-295)
[2025-08-22 04:15] LABS: Hematocrit 33.4 % (40-54); Hemoglobin 12.0 g/dL (13.0-16.5); Mean Corp Hgb Conc 35.9 g/dL (32-36); Mean Corpuscular Volume 93.8 fL (80-94); Mean Platelet Vol. 8.7 fl (6.2-12.0); Platelet Count 171 K/mm3 (150-450); RBC Distribution Width CV 12.0 % (11.6-14.6); RBC Distribution Width SD 41.9 fl (35.1-43.9); Red Blood Count 3.56 M/mm3 (4.6-6.2); White Blood Count 7.3 K/mm3 (4.4-11.0)
[2025-08-22 04:51] LABS: AST(SGOT) 85 U/L (<=37); Alanine Aminotransfer ALT/SGPT 115 U/L (<=46); Albumin, Serum 3.9 g/dL (3.5-5.0); Alkaline Phosphatase 53 U/L (40-129); Anion Gap 14 (5-15); BUN 26 mg/dL (4-19); BUN/Creat Ratio 7.8 RATIO (10-20); Bilirubin, Direct 0.49 mg/dL (0.00-0.30); Calcium,Total 8.6 mg/dL (7.6-11.0); Carbon Dioxide 22.9 mmol/L (21.0-32.0); Chloride 87 mmol/L (98-108); Estimated Creatinine Clearance 30.75 ml/min (50-250); Globulin 2.5 g/dL (2.2-4.2); Glucose 106 mg/dL (70-99); Potassium 3.5 mmol/L (3.3-5.1)
[2025-08-22] MEDS: Lactated Ringers 1,000 ML 999 ML IV (06:33)
[2025-08-22] MEDS: 0.9% Normal Saline (1000mL) 1,000 ML 100 ML IV (08:01)
[2025-08-22] MEDS: Heparin Injection (Vial) 5,000 UNIT/ML VIAL 5000 UNIT SC ×2 (08:12→20:40)
[2025-08-22 08:17] LABS: Osmolality, Urine 299 mOsm/KG
--- NOTE | 2025-08-22 09:50 | PCM.PN.HOSP ---
Subjective Subjective Doing well, no issues overnight. Still awaiting stool sample for C. difficile testing Objective Data Objective Data Vital Signs: Vital Signs Temp Pulse Resp BP Pulse Ox O2 Del Method 98.3 F 72 15 107/57 L 98 Room Air 08/22/25 08:09 08/22/25 08:09 08/22/25 08:09 08/22/25 08:09 08/22/25 08:09 08/22/25 08:09 Oxygen Delivery Method Room Air Weight: 251 lb 12.286 oz Body Mass Index (BMI) 38.2 Intake & Output: Intake and Output for Last 24 Hours 08/21/25 08/22/25 08/23/25 03:59 03:59 03:59 Intake Total 1766.1 / 1766.1 1999 Balance 1766.1 / 1766.1 1999 Lab / Micro Data 08/22/25 04:07 08/22/25 04:07 Labs: Laboratory Results - last 24 hr 08/21/25 15:57: WBC 9.5, RBC 4.42 L, Hgb 15.1, Hct 40.5, MCV 91.6, MCH 34.2 H, MCHC 37.3 H, RDW Std Deviation 39.9, RDW Coeff of Jaclyn 12.0, Plt Count 226, MPV 8.6, Immature Gran % (Auto) 0.600, Neut % (Auto) 73.7 H, Lymph % (Auto) 14.3 L, [place] % (Auto) 10.6 H, Eos % (Auto) 0.4, Baso % (Auto) 0.4, Absolute Neuts (auto) 7.0, Absolute Lymphs (auto) 1.35, Nucleated RBC % 0, Sodium 119 L*, Potassium 4.0, Chloride 81 L, Carbon Dioxide 22.2, Anion Gap 16 H, BUN 22 H, Creatinine 2.49 H, Est GFR (MDRD) Non-Af 30 L, BUN/Creatinine Ratio 9.0 L, Glucose 121 H, Calcium 9.6, Magnesium 2.3 H, Total Bilirubin 1.11, AST 113 H, ALT 143 H, Alkaline Phosphatase 68, Total Protein 7.9, Albumin 4.7, Globulin 3.2, Albumin/Globulin Ratio 1.5, Lipase 62 08/21/25 17:55: Sodium 121 L, Potassium 3.9, Chloride 83 L, Carbon Dioxide 24.1, Anion Gap 14, BUN 22 H, Creatinine 2.37 H, Estim Creat Clear Calc 44.70 L, Est GFR (MDRD) Non-Af 31 L, BUN/Creatinine Ratio 9.2 L, Glucose 109 H, Calcium 9.2 08/21/25 19:54: Urine Color Yellow, Urine Clarity Clear, Urine pH 6.0, Ur Specific [place] 1.015, Urine Protein Negative, Urine Glucose (UA) Normal, Urine Ketones Negative, Urine Occult Blood Negative, Urine Nitrite Negative, Urine Bilirubin Negative, Urine Urobilinogen Normal, Ur Leukocyte Esterase Negative, Urine RBC 0-5 SEEN, Urine WBC 0-5 SEEN, Ur Squamous Epith Cells 0-5 SEEN, Urine Bacteria RARE, Hyaline Casts 0-5 SEEN, Urine Mucus 0 SEEN, Urine Osmolality 299, Ur Random Sodium 62, Urine Creatinine 97.30 08/22/25 00:21: Sodium 122 L, Potassium 3.6, Chloride 86 L, Carbon Dioxide 21.8, Anion Gap 14, BUN 23 H, Creatinine 2.96 H, Estim Creat Clear Calc 34.18 L, Est GFR (MDRD) Non-Af 24 L, BUN/Creatinine Ratio 7.8 L, Glucose 118 H, Serum Osmolality 272 L, Calcium 8.8 08/22/25 04:07: WBC 7.3, RBC 3.56 L, Hgb 12.0 L, Hct 33.4 L, MCV 93.8, MCH 33.7 H, MCHC 35.9, RDW Std Deviation 41.9, RDW Coeff of Jaclyn 12.0, Plt Count 171, MPV 8.7, Sodium 123 L, Potassium 3.5, Chloride 87 L, Carbon Dioxide 22.9, Anion Gap 14, BUN 26 H, Creatinine 3.29 H, Estim Creat Clear Calc 30.75 L, Est GFR (MDRD) Non-Af 21 L, BUN/Creatinine Ratio 7.8 L, Glucose 106 H, Lactic Acid < 1.0, Calcium 8.6, Total Bilirubin 0.90, Direct Bilirubin 0.49 H, AST 85 H, ALT 115 H, Alkaline Phosphatase 53, Total Protein 6.4, Albumin 3.9, Globulin 2.5 Micro: Microbiology 08/22/25 00:10 Stool Stool Lactoferrin - Final 08/22/25 00:10 Stool Enteric Bacteriology - Final Radiography Diagnostic Testing: Radiology Impression Abdomen/Pelvis CT 08/21/25 16:50 IMPRESSION: No acute abnormality Reading Location: [facility] Physical Exam Narrative General: Alert, Oriented x3, Cooperative, No apparent distress HEENT: Atraumatic, PERRLA, EOMI, Normocephalic Oral: Moist Mucosa Neck: Supple, No JVD Lungs: Diminished, Normal air movement, No rhonchi, No wheeze, No rales Cardiovascular: Regular rate, Regular Rhythm, Normal S1, Normal S2, No murmurs Abdomen: Soft, Non Tender, Non-Distended, No Hepato-splenomegaly Extremities: No edema, Capillary Refill Less than 3 Seconds Skin: No rashes, No breakdown Musculoskeletal: No Tenderness to Palpation of Joints or Extremities Neurological: No focal neurological deficits, Motor Exam 5/5 strength throughout, Sensory exam intact to light touch and pain Psych/Mental Status: Normal Affect, Appropriate Assessment & Plan Assessment/Plan (1) Acute hyponatremia: (2) MAYA (acute kidney injury): PLAN: Plan 1. Acute hyponatremia and MAYA secondary to gastroenteritis with concomitant use of lisinopril and hydrochlorothiazide ? Discontinue hydrochlorothiazide ? Continue with IV fluids ? CT scans negative for any infectious etiology ? Stool studies are also negative ? Sodium is improving we will continue to monitor continue IV fluids 2. Essential HTN/HLD ? Will hold his blood pressure medications secondary to the cause of MAYA as well as his hypotension ? Will monitor and make adjustments as necessary ? Can resume his home cholesterol medications 3. GERD ? Stable ? Continue with PPI DVT: Heparin Charges/Coding Visit Charges Inpatient E&M: 26868 Subs Hosp L2
--- NOTE | 2025-08-22 09:57 | CASEMGMT ---
Dx: hyponatremia, MAYA LACE: 1 6-Clicks: 23 Medical record reviewed and patient evaluated for identification of discharge planning needs. Based on this review, at this time criteria are not present to indicate a need for discharge planning. Will remain available to assist with discharge planning needs as identified or requested.
[2025-08-22] MEDS: Ensure Plus High Protein 120 ML LIQUID PO ×2 (12:00→17:47)
[2025-08-23 03:34] VITALS: PULSE 62
[2025-08-23 06:04] VITALS: BP 114/66; PULSE 80; RESP 16; TEMP 36.6; O2SAT 98
[2025-08-23 06:32] LABS: Hematocrit 34.5 % (40-54); Hemoglobin 12.4 g/dL (13.0-16.5); Immature Granulocytes Count 0.010 X10^3/uL (0.0-0.0); Mean Corp Hgb Conc 35.9 g/dL (32-36); Mean Corpuscular Volume 95.3 fL (80-94); Mean Platelet Vol. 9.0 fl (6.2-12.0); NRBC Flagged by Analyzer 0 % (0-5); Platelet Count 188 K/mm3 (150-450); RBC Distribution Width CV 12.1 % (11.6-14.6); RBC Distribution Width SD 42.6 fl (35.1-43.9); Red Blood Count 3.62 M/mm3 (4.6-6.2); White Blood Count 5.3 K/mm3 (4.4-11.0)
[2025-08-23 07:11] LABS: Anion Gap 11 (5-15); BUN 22 mg/dL (4-19); BUN/Creat Ratio 14.0 RATIO (10-20); Calcium,Total 9.8 mg/dL (7.6-11.0); Carbon Dioxide 26.4 mmol/L (21.0-32.0); Chloride 93 mmol/L (98-108); Estimated Creatinine Clearance 64.85 ml/min (50-250); Glucose 95 mg/dL (70-99); Potassium 4.6 mmol/L (3.3-5.1)
--- NOTE | 2025-08-23 09:34 | DCINST_ITS ---
Discharge Instructions DC O2, CPAP, BIPAP needs Home O2 Discharge instructions: No Dressing / Incision Discharge Activity: Return to Normal Activity Dressing / Incision Call your doctor if you observe: Fever of 101 or Higher, Shortness of breath, Dizziness, Fainting spells, Swelling in the ankles, Chest pain and Increased palpitations (irregular heartbeat) Follow Up Care Test Results: Test results from this visit will be discussed in further detail at your follow- up appointment, if applicable. Discharge Plan Admission Admit Date/Time: 08/21/25 19:19 Attending Provider: Casey Low Primary Care Provider: Babatunde Rush Consulting Providers: Ever Perkins; Casey Low; Crow Manning Instructions Additional Instructions / Restrictions: Follow-up with your primary care doctor in 3 to 5 days to obtain lab work to monitor your kidney function and your sodium levels. Discharge Orders/Prescriptions Prescriptions: New amlodipine [Norvasc] 10 mg tablet 10 mg PO DAILY Qty: 30 0RF Continued pantoprazole 40 mg tablet,delayed release (DR/EC) 40 mg PO DAILY atorvastatin [Lipitor] 20 mg tablet 20 mg PO DAILY fenofibrate 54 mg tablet 54 mg PO DAILY colestipol [Colestid] 1 gram tablet 1 g PO DAILY Held lisinopril 40 mg tablet 40 mg PO DAILY Hold Instructions: Resume on 08/26/25. Discontinued hydrochlorothiazide 25 mg tablet 25 mg PO DAILY Referrals / Follow Up: Babatunde Rush MD [Primary Care Provider, Family Practice] - Within 1 Week Disposition Disposition (needs filled in before D/C Order can be placed): Home, Self Care
[2025-08-23 10:05] VITALS: BP 116/71; PULSE 87; RESP 18; TEMP 36.7; O2SAT 97
[2025-08-23] MEDS: Ensure Plus High Protein 120 ML LIQUID PO (10:10)
[2025-08-23] MEDS: Heparin Injection (Vial) 5,000 UNIT/ML VIAL 5000 UNIT SC (10:11)
--- NOTE | 2025-08-23 11:10 | PCM.DC.SUM ---
Providers Date of Admission: 08/21/25 Primary Care Physician: Dr. Babatunde Rush MD Reason For Visit: HYPONATREMIA, MAYA Diagnosis Discharge Diagnosis (1) Acute hyponatremia: Status: Acute Code(s): E87.1 - Hypo-osmolality and hyponatremia (2) MAYA (acute kidney injury): Status: Acute Code(s): N17.9 - Acute kidney failure, unspecified Medications at Discharge Home Medications atorvastatin 20 mg tablet (Lipitor) 20 mg PO DAILY cholesterol 08/21/25 colestipol 1 gram tablet (Colestid) 1 g PO DAILY cholesterol 08/21/25 fenofibrate 54 mg tablet 54 mg PO DAILY cholesterol 08/21/25 lisinopril 40 mg tablet 40 mg PO DAILY BP 08/21/25 Held on 08/23/25. Instructions: Resume on 08/26/25. pantoprazole 40 mg tablet,delayed release 40 mg PO DAILY reflux 08/21/25 amlodipine 10 mg tablet (Norvasc) 10 mg PO DAILY #30 tabs 08/23/25 Hospital Course Operations None Procedures None Summary of Care Provided Minutes Spent on Discharge: 36 Hospital Course: Per HPI: MANA ABBASI, is a 55 M who presented to [facility] ED on 08/21/2025 with nausea/vomiting with dehydration and fatigue. Medical history significant for hypertension, hyperlipidemia, class II obesity, and GERD. Patient lives at home with his , has good functional status at baseline. He was in [place] from 08/11-08/14 for a hunting trip. On the drive home Friday he developed nausea and then had frequent episodes of vomiting during the drive. He also had some episodes of diarrhea at that time. He was able to make it home but has felt dehydrated and fatigued since then. He has been trying to increase intake of fluids but his p.o. intake has generally been poor. This morning his noticed that he appeared to be somewhat confused and was asking her questions that did not make sense. She took him to urgent care who then advised them to come to the ED. In the ED he was normotensive, had borderline sinus tachycardia, was otherwise afebrile and stable on room air at rest. Labs notable for sodium 119, chloride 81, creatinine 2.49, BUN 22, AST 113, ALT 143. He was given a 500 cc bolus of normal saline and repeat sodium was 121. Hospitalist was then contacted for admission. I saw the patient at bedside in the ED, was present. Patient was mildly fatigued and flushed appearing but otherwise sitting back comfortably in bed and in no acute distress. He was conversing normally for me and did not appear confused or mentally slowed. Importantly, patient was started on hydrochlorothiazide about 1 month ago for his high blood pressure. He had only been on lisinopril to that point. Patient denies any nausea or vomiting over the past several days. No other acute concerns currently. Will be admitted for further management. Hospital Course: 1. Acute hyponatremia and MAYA secondary to gastroenteritis with concomitant use of lisinopril hydrochlorothiazide?55-year-old male presented to the hospital a month after starting hydrochlorothiazide with gastroenteritis and dehydration and fatigue. He was found to have an MAYA that peaked with a creatinine of 3.29 and a sodium of 119. Today on the day of discharge his creatinine was down to 1.56 after IV fluids and the sodium is 131. He feels great and would like to go home. We discussed the possibility of discharge and he expressed understanding of the risks and benefits of going home and would like to go home today. Will discontinue his hydrochlorothiazide and will hold his lisinopril for a few more days. Will also place him on Norvasc for blood pressure assistance since we are stopping his hydrochlorothiazide. I do recommend he follow-up with his PCP in 3 to 5 days to monitor his renal function his sodium levels. Infectious workup was negative, CT scan was negative for colitis and stool studies were also negative, though ova and parasites are still pending. He will need to follow-up with his doctor to obtain these results as it can take several days to weeks to get the studies back. 2. Hypertension, hyperlipidemia, GERD are all chronic medical conditions which complicate his care. His home medications were continued where appropriate. Physical Exam Narrative General: Alert, Oriented x3, Cooperative, No apparent distress HEENT: Atraumatic, PERRLA, EOMI, Normocephalic Oral: Moist Mucosa Neck: Supple, No JVD Lungs: Diminished, Normal air movement, No rhonchi, No wheeze, No rales Cardiovascular: Regular rate, Regular Rhythm, Normal S1, Normal S2, No murmurs Abdomen: Soft, Non Tender, Non-Distended, No Hepato-splenomegaly Extremities: No edema, Capillary Refill Less than 3 Seconds Skin: No rashes, No breakdown Musculoskeletal: No Tenderness to Palpation of Joints or Extremities Neurological: No focal neurological deficits, moves all extremities Psych/Mental Status: Normal Affect, Appropriate Weight / BMI Weight Weight: 251 lb 12.286 oz Body Mass Index (BMI) 38.2 ABG / Lab / Microbiology Data 08/23/25 05:32 08/23/25 05:32 Laboratory: Laboratory Results - last 24 hr 08/23/25 05:32: WBC 5.3, RBC 3.62 L, Hgb 12.4 L, Hct 34.5 L, MCV 95.3 H, MCH 34.3 H, MCHC 35.9, RDW Std Deviation 42.6, RDW Coeff of Jaclyn 12.1, Plt Count 188, MPV 9.0, Immature Gran % (Auto) 0.200, Neut % (Auto) 45.7 L, Lymph % (Auto) 36.9, Stark % (Auto) 14.5 H, Eos % (Auto) 1.9, Baso % (Auto) 0.8, Absolute Neuts (auto) 2.4, Absolute Lymphs (auto) 1.96, Nucleated RBC % 0, Sodium 131 L, Potassium 4.6, Chloride 93 L, Carbon Dioxide 26.4, Anion Gap 11, BUN 22 H, Creatinine 1.56 H, Estim Creat Clear Calc 64.85, Est GFR (MDRD) Non-Af 52 L, BUN/Creatinine Ratio 14.0, Glucose 95, Calcium 9.8 Microbiology: Microbiology 08/22/25 00:10 Stool Stool Lactoferrin - Final 08/22/25 00:10 Stool Enteric Bacteriology - Final D/C Instructions Call your doctor if you observe: Fever of 101 or Higher, Shortness of breath, Dizziness, Fainting spells, Swelling in the ankles, Chest pain and Increased palpitations (irregular heartbeat) DC O2, CPAP, BIPAP Needs Home O2 Discharge instructions: No Meaningful Use Info Meaningful Use Meaningful Use Diagnoses (Choose all that apply): None applicable Discharge Plan Admission Admit Date/Time: 08/21/25 19:19 Attending Provider: Casey Low Primary Care Provider: Babatunde Rush Consulting Providers: Ever Perkins; Casey Low; Crow Manning Instructions Additional Instructions / Restrictions: Follow-up with your primary care doctor in 3 to 5 days to obtain lab work to monitor your kidney function and your sodium levels. Discharge Orders/Prescriptions Prescriptions: New amlodipine [Norvasc] 10 mg tablet 10 mg PO DAILY Qty: 30 0RF Continued pantoprazole 40 mg tablet,delayed release (DR/EC) 40 mg PO DAILY atorvastatin [Lipitor] 20 mg tablet 20 mg PO DAILY fenofibrate 54 mg tablet 54 mg PO DAILY colestipol [Colestid] 1 gram tablet 1 g PO DAILY Held lisinopril 40 mg tablet 40 mg PO DAILY Hold Instructions: Resume on 08/26/25. Discontinued hydrochlorothiazide 25 mg tablet 25 mg PO DAILY Referrals / Follow Up: Babatunde Rush MD [Primary Care Provider, Family Practice] - Within 1 Week Disposition Disposition (needs filled in before D/C Order can be placed): Home, Self Care Charges/Coding Visit Charges Inpatient E&M: 32605 Disch Hosp >30min
--- NOTE | 2025-08-23 11:18 | PHA.DC_ITS ---
Pharmacy [facility] Counseling Pharmacy Service has performed discharge medication reconciliation and counseling for this patient. The patient's discharge medication list was reviewed for discrepancies and discrepancies were resolved. The patient was counseled on the following discharge medications and changes in medications for homegoing were reviewed. 1. NORVASC 2. HOLD LISINOPRIL 3. STOP HYDROCHLOROTHIAZIDE The Reason for Use, instructions for use, and potential side effects were reviewed for all new medications. The patient's questions regarding all of their medications were answered. The patient was able to verbally demonstrate an understanding of their discharge medications. Patient counselled by Alexis Watts PharmD Candidate Medications at Discharge Home Medications atorvastatin 20 mg tablet (Lipitor) 20 mg PO DAILY cholesterol 08/21/25 colestipol 1 gram tablet (Colestid) 1 g PO DAILY cholesterol 08/21/25 fenofibrate 54 mg tablet 54 mg PO DAILY cholesterol 08/21/25 lisinopril 40 mg tablet 40 mg PO DAILY BP 08/21/25 Held on 08/23/25. Instructions: Resume on 08/26/25. pantoprazole 40 mg tablet,delayed release 40 mg PO DAILY reflux 08/21/25 amlodipine 10 mg tablet (Norvasc) 10 mg PO DAILY #30 tabs 08/23/25
== END 2025-08-23 11:58 | disposition home or self-care (01) | DRG 392 ==
LOC: ED 17:19 → PCU 19:37
PROVIDERS: Internal Medicine; Admitting Provider Hospitalist; Emergency Provider Emergency Medicine; PCP Family Medicine; Visit Provider Family Medicine
DX: K52.9 Noninfective gastroenteritis and colitis, unspecified (principal); E87.1 Hypo-osmolality and hyponatremia; N17.9 Acute kidney failure, unspecified; I10 Essential (primary) hypertension; Z68.38 Body mass index [BMI] 38.0-38.9, adult; E78.00 Pure hypercholesterolemia, unspecified; K21.9 Gastro-esophageal reflux disease without esophagitis; I95.9 Hypotension, unspecified; E66.812 Obesity, class 2; Z79.899 Other long term (current) drug therapy; Z90.49 Acquired absence of other specified parts of digestive tract; R79.89 Other specified abnormal findings of blood chemistry
CPT/HCPCS: 36415; 74176; 80048; 80053; 80076; 81001; 82570; 83605; 83630; 83690; 83735; 83930; 83935; 84300; 85025; 85027; 87177; 87209; 87493; 87506; 93005; 97802; 99283; A4216